=== PATIENT | female | born 1965 | race Two or more races ===

== ENCOUNTER 2021-01-06 07:57 | Outpatient (REF) | payer OTHER, SELFPAY ==
[2021-01-06 08:37] LABS: MANUAL DIFF FLAG NO
[2021-01-06 08:43] LABS: Basophils Percent Auto 0.5 % (0-2); Eosinophils Absolute Auto 0.3 X10*3/uL (0.0-0.4); Eosinophils Percent Auto 4.3 % (0-4); Imm Gran Abs Auto 0.01 X10*3/uL (0.00-0.03); Imm Gran Pct Auto 0.2 % (0.0-0.4); Lymphocytes Absolute Auto 1.7 X10*3/uL (1.2-4.9); Lymphocytes Percent Auto 28.8 % (20-40); Mean Corpuscular HGB Conc 33.3 g/dl (31.0-35.0); Mean Corpuscular Hemoglobin 31.4 pg (27.0-33.0); Mean Corpuscular Volume 94.2 fL (80-98); Mean Platelet Volume 11.3 fL (9.4-12.3); Monocytes Absolute Auto 0.5 X10*3/uL (0.1-1.2); Monocytes Percent Auto 7.7 % (2-11); Neutrophils Absolute Auto 3.4 X10*3/uL (2.0-8.3); Neutrophils Percent Auto 58.5 % (45-73); Platelet Count 263 X10*3/uL (160-400); Red Blood Count 4.14 X10*6/uL (4.20-5.50); Red Cell Distribution Width 12.8 % (11.0-16.0); White Blood Count 5.8 X10*3/uL (4.8-10.8)
[2021-01-06 09:00] LABS: Alanine Aminotransferase 23 U/L (0-31); Albumin Level 4.2 g/dL (3.5-5.0); Alkaline Phosphatase 95 U/L (39-117); Anion Gap 11 (12-20); Aspartate Amino Transferase 22 U/L (5-31); Bilirubin Total 0.4 mg/dL (0.0-1.0); Blood Urea Nitrogen 13 mg/dL (9-16); Calcium 9.6 mg/dL (8.4-10.2); Carbon Dioxide 28 mmol/L (22-29); Chloride 104 mmol/L (96-108); Cholesterol 177 mg/dL; Estimated Glomerular Filt Rate > 60; Glucose Fasting 126 mg/dL (60-99); HDL Cholesterol 53 mg/dL; LDL Cholesterol Calculated 111 mg/dl; Sodium 139 mmol/L (135-145); Total Protein 7.2 g/dL (6.5-8.0); Triglycerides 65 mg/dL
[2021-01-06 09:26] LABS: Thyroid Stimulating Hormone 1.28 uIU/mL (0.32-4.0)
== END 2021-01-06 07:58 | disposition home or self-care (01) ==
LOC: HO.LAB 07:57
PROVIDERS: PCP Internal Medicine; Visit Provider Internal Medicine
DX: Z00.00 Encounter for general adult medical examination without abnormal findings (principal); E03.9 Hypothyroidism, unspecified; E11.9 Type 2 diabetes mellitus without complications
CPT/HCPCS: 36415; 80053; 80061; 84443; 85025

== ENCOUNTER 2021-01-20 10:27 | Outpatient (REF) | payer OTHER, SELFPAY ==
--- NOTE | ~2021-01-20 | MM_ITS ---
EXAMINATION: MM SCREENING DIGITAL BREAST TOMOSYNTHESIS, BILATERAL CLINICAL INFORMATION: Screening. Asymptomatic. The lifetime risk of breast cancer based on the Tyrer-Cuzick Model is 7%. COMPARISON: Mammography: 04/23/2019, 04/05/2018, 03/10/2017 TECHNIQUE: Digital breast tomosynthesis is performed in both the craniocaudal and mediolateral oblique views along with computer-aided detection (CAD). Synthesized 2D images are generated from the tomosynthesis. Additional right MLO view is provided. FINDINGS: The breasts are almost entirely fatty (ACR BI-RADS breast composition Category a). There are no significant masses, abnormal calcifications, or other abnormalities. Background stromal markings are stable. The axilla and skin contours are unremarkable. No significant changes. MM/MM tomosynthesis screening BI IMPRESSION: No mammographic evidence of malignancy. ASSESSMENT: BI-RADS 1: Negative RECOMMENDATION: Routine annual mammography screening. This patient's information was entered into a reminder system with a target due date for their next mammogram.
== END 2021-01-20 10:28 | disposition home or self-care (01) ==
LOC: HO.MAMMO 10:27
PROVIDERS: Visit Provider Internal Medicine
DX: Z12.31 Encounter for screening mammogram for malignant neoplasm of breast (principal)
CPT/HCPCS: 77063; 77067

== ENCOUNTER → 2021-02-11 12:28 | Outpatient (BNVA) | payer OTHER, SELFPAY | PROVIDERS: PCP Internal Medicine; Visit Provider Dietitian, Registered | DX: E66.9 Obesity, unspecified (principal); R73.03 Prediabetes; J45.909 Unspecified asthma, uncomplicated; Z68.41 Body mass index [BMI] 40.0-44.9, adult | CPT/HCPCS: 97802 ==

== ENCOUNTER → 2021-03-25 10:49 | Outpatient (BNVA) | payer OTHER, SELFPAY | PROVIDERS: PCP Internal Medicine; Visit Provider Dietitian, Registered | DX: R73.03 Prediabetes (principal) | CPT/HCPCS: 97803 ==

== ENCOUNTER → 2021-04-26 10:00 | Outpatient (BNVA) | payer OTHER, SELFPAY | PROVIDERS: PCP Internal Medicine; Referring Provider Internal Medicine; Visit Provider Internal Medicine Cardiovascular Disease | DX: R00.2 Palpitations (principal); I10 Essential (primary) hypertension | CPT/HCPCS: 93005; 99212 ==

== ENCOUNTER → 2021-05-06 10:26 | Outpatient (BNVA) | payer OTHER, SELFPAY | PROVIDERS: PCP Internal Medicine; Visit Provider Dietitian, Registered | DX: R73.03 Prediabetes (principal) | CPT/HCPCS: 97803 ==

== ENCOUNTER → 2021-05-14 10:26 | Outpatient (REF) | payer OTHER, SELFPAY ==
--- NOTE | 2021-05-14 10:29 | HM_ITS ---
Total monitoring time 6 days and 3 hours. Underlying rhythm is sinus. Minimum 53/minute. Maximum 122/minute. Average 73/minute. No atrial fibrillation or flutter. No AV blocks or pauses. Very rare supraventricular ectopy with a burden of 0.01%. Longest episode was 5 beats. Very rare ventricular ectopy with a burden of less than 0.01%; one couplet. No patient events. MTDD
== END ==
LOC: HO.CARD 10:26
PROVIDERS: PCP Internal Medicine; Visit Provider Internal Medicine Cardiovascular Disease
DX: R00.2 Palpitations (principal)
CPT/HCPCS: 93242

== ENCOUNTER → 2021-06-02 10:41 | Outpatient (BNVA) | payer OTHER, SELFPAY | PROVIDERS: PCP Internal Medicine; Referring Provider Internal Medicine; Visit Provider Internal Medicine Cardiovascular Disease | DX: R00.2 Palpitations (principal); R06.00 Dyspnea, unspecified; I10 Essential (primary) hypertension | CPT/HCPCS: 99212 ==

== ENCOUNTER → 2021-06-10 13:04 | Outpatient (BNVA) | payer OTHER, SELFPAY | PROVIDERS: PCP Internal Medicine; Visit Provider Dietitian, Registered | DX: R73.03 Prediabetes (principal) | CPT/HCPCS: 97803 ==

== ENCOUNTER → 2021-06-29 10:17 | Outpatient (REF) | payer OTHER, SELFPAY ==
--- NOTE | 2021-06-29 10:21 | CA_ITS ---
Acquisition Time: 2021-06-29 10:49:46 Total Exercise Time: 00:03:47 Test Indications: Dyspnea Medications: ATORVASTATIN HCTZ NAPROXEN TIZANADINE TRAZADONE VENLAFAXINE Protocol: SAMANTHA Max HR: 130 BPM 79% of Pred: 163 BPM Max BP: 140/082 mmHG Max Work Load: 4.6 METS Exercise stress test with exercise 3 min 3 sec of Samantha protocol, then treadmill stopped due to runs of ventricular tachycardia, 6 beats followed by 4 beats and 3 beats, with report of palpitation, without chest discomfort, with mild sob, with normotensive response to exercise, with nondiagnostic EKG for ischemia due to suboptimal heart rate. No further ventricular ectopy in recovery. Test reviewed with Dr Ledesma. message sent to Dr Stark regarding the above events. Referred By: Quinton Stark Overread By: JENNIFER MANNING
== END ==
LOC: HO.CARD 10:17
PROVIDERS: Visit Provider Internal Medicine Cardiovascular Disease
DX: R06.00 Dyspnea, unspecified (principal)
CPT/HCPCS: 93017

== ENCOUNTER 2021-07-01 14:42 | Outpatient (REF) | payer OTHER, SELFPAY ==
[2021-07-01 16:13] LABS: MANUAL DIFF FLAG NO
[2021-07-01 16:23] LABS: Basophils Percent Auto 0.5 % (0-2); Eosinophils Absolute Auto 0.2 X10*3/uL (0.0-0.4); Eosinophils Percent Auto 2.9 % (0-4); Hematocrit 38.9 % (37.0-47.0); Hemoglobin 12.7 g/dl (12.0-16.0); Imm Gran Abs Auto 0.02 X10*3/uL (0.00-0.03); Imm Gran Pct Auto 0.3 % (0.0-0.4); Lymphocytes Absolute Auto 2.6 X10*3/uL (1.2-4.9); Lymphocytes Percent Auto 33.4 % (20-40); Mean Corpuscular HGB Conc 32.6 g/dl (31.0-35.0); Mean Corpuscular Volume 94.9 fL (80.0-98.0); Mean Platelet Volume 10.9 fL (9.4-12.3); Monocytes Absolute Auto 0.6 X10*3/uL (0.1-1.2); Monocytes Percent Auto 8.2 % (2-11); Neutrophils Absolute Auto 4.3 x10*3/uL (2.0-8.3); Neutrophils Percent Auto 54.7 % (45-73); Platelet Count 244 X10*3/uL (160-400); Red Cell Distribution Width 12.8 % (11.0-16.0); White Blood Count 7.8 X10*3/uL (4.8-10.8)
[2021-07-01 16:40] LABS: Prothrombin Time 11.8 SEC (9.9-13.0)
[2021-07-01 16:55] LABS: Anion Gap 16 (12-20); Blood Urea Nitrogen 17 mg/dL (9-16); Calcium 9.6 mg/dL (8.4-10.2); Carbon Dioxide 23 mmol/L (22-29); Chloride 103 mmol/L (96-108); Estimated Glomerular Filt Rate > 60; Glucose Random 84 mg/dL (60-115); Potassium 3.8 mmol/L (3.3-5.1); Sodium 138 mmol/L (135-145)
== END 2021-07-01 14:43 | disposition home or self-care (01) ==
LOC: HO.LAB 14:42
PROVIDERS: PCP Internal Medicine; Referring Provider Internal Medicine; Visit Provider Nurse Practitioner Family
DX: Z01.810 Encounter for preprocedural cardiovascular examination (principal); I47.2 Ventricular tachycardia; R06.00 Dyspnea, unspecified; R00.2 Palpitations; E66.9 Obesity, unspecified; I10 Essential (primary) hypertension; R73.03 Prediabetes; E78.5 Hyperlipidemia, unspecified
CPT/HCPCS: 36415; 80048; 85025; 85610; 99212

== ENCOUNTER → 2021-08-03 08:27 | Outpatient (REF) | payer OTHER, SELFPAY ==
[2021-08-03 08:43] LABS: MANUAL DIFF FLAG NO
[2021-08-03 09:00] LABS: Basophils Percent Auto 0.4 % (0-2); Eosinophils Absolute Auto 0.1 X10*3/uL (0.0-0.4); Eosinophils Percent Auto 1.5 % (0-4); Hematocrit 40.3 % (37.0-47.0); Hemoglobin 12.8 g/dl (12.0-16.0); Imm Gran Abs Auto 0.01 X10*3/uL (0.00-0.03); Imm Gran Pct Auto 0.2 % (0.0-0.4); Lymphocytes Absolute Auto 0.7 X10*3/uL (1.2-4.9); Mean Corpuscular HGB Conc 31.8 g/dl (31.0-35.0); Mean Corpuscular Hemoglobin 30.7 pg (27.0-33.0); Mean Corpuscular Volume 96.6 fL (80.0-98.0); Mean Platelet Volume 11.1 fL (9.4-12.3); Monocytes Absolute Auto 0.6 X10*3/uL (0.1-1.2); Monocytes Percent Auto 12.5 % (2-11); Neutrophils Absolute Auto 3.2 x10*3/uL (2.0-8.3); Neutrophils Percent Auto 69.4 % (45-73); Platelet Count 227 X10*3/uL (160-400); Red Blood Count 4.17 X10*6/uL (4.20-5.50); Red Cell Distribution Width 12.7 % (11.0-16.0); White Blood Count 4.6 X10*3/uL (4.8-10.8)
[2021-08-03 09:03] LABS: INTERNATIONAL NORM RATIO 1.1 (0.9-1.1); Prothrombin Time 12.1 SEC (9.9-13.0)
[2021-08-03 09:50] LABS: Anion Gap 13 (12-20); Blood Urea Nitrogen 10 mg/dL (9-16); Calcium 9.6 mg/dL (8.4-10.2); Carbon Dioxide 29 mmol/L (22-29); Chloride 103 mmol/L (96-108); Estimated Glomerular Filt Rate > 60; Glucose Random 101 mg/dL (60-115); Sodium 141 mmol/L (135-145)
== END ==
LOC: HO.CARD 08:27
PROVIDERS: Absent Provider Internal Medicine; PCP Internal Medicine; Visit Provider Nurse Practitioner Family
DX: R00.2 Palpitations (principal); R06.00 Dyspnea, unspecified; R00.0 Tachycardia, unspecified
CPT/HCPCS: 36415; 80048; 85025; 85610

== ENCOUNTER → 2021-10-15 13:09 | Outpatient (REF) | payer OTHER, SELFPAY ==
--- NOTE | 2021-10-15 13:12 | CA_ITS ---
Transthoracic Echocardiogram Patient (Last, First, Middle): Temitope Christensen E Gender: Female Date of : 1965 Age: 56 Procedure Date: 10/15/2021 Procedure Type: Transthoracic Echocardiogram Location: OP Height: 149.86 cm Weight: 80.29 kg BSA: 1.75 m2 Heart Rate: bpm BP: 120 / 78 mmHg Human Resources Supervisor: HOOD Referring MD: Pastora Amaya L D RN-Yvonne Symptoms: R06.00 - Dyspnea, unspecified Study Quality: Fair ECG Rhythm: Sinus Conclusions: - The left ventricular systolic function is normal. The calculated ejection fraction is 57% by biplane method. - No obvious valvular pathology seen on this study. Findings Left Ventricle Normal left ventricular cavity size. There is normal left ventricular wall thickness. The left ventricular systolic function is normal. The calculated ejection fraction is 57% by biplane method. There is no evidence of regional wall motion abnormalities. Diastolic function is normal for age. Right Ventricle Normal right ventricular cavity size and systolic function. Atria The left atrium is mildly dilated. The right atrium is normal in size. Aortic Valve There is a normal trileaflet aortic valve. There is no aortic valve stenosis. There is no aortic valve regurgitation. Mitral Valve The mitral valve appears normal. There is no mitral valve regurgitation. There is no mitral valve stenosis. Pulmonic Valve The pulmonic valve was not well visualized. Tricuspid Valve Normal tricuspid valve structure. There is trace tricuspid valve regurgitation. The pulmonary artery systolic pressure is normal. Great Vessels The aortic annulus, sinuses of valsalva, and asc aorta are normal in size. Venous The inferior vena cava is normal in size and collapses greater than 50% with inspiration. Pericardium/Pleural There is no evidence of pericardial effusion. Prior Study Comparison No significant change compared to prior study dated: 03/12/2019. Recommendations, Care & Conclusions No obvious valvular pathology seen on this study. Measurements 2D Linear Measurements IVSd: 0.77 0.6-0.9/0.6-1.0 cm LVIDd: 4.35 3.9-5.3/4.2-5.9 cm LVIDd Index: 2.49 2.4-3.2/2.2-3.1 cm/m2 LVIDs: 2.83 2.0-3.6 cm LVPWd: 0.79 0.7-1.1 cm LA Diam: 3.50 2.7-3.8/3.0-4.0 cm LAIDs Index: 2.00 1.5-2.3 cm/m2 LV Mass: 129.62 67-162/88-224 g LV Mass Index: 74.07 43-95/49-115 g/m2 LVOT Diam: 1.80 3.0+(-)1.3 cm 2D Systolic Function EF 4C: 56.10 >55% EF 2C: 61.40 >55% EF BiP: 57.20 >55% Mitral Valve MV Pk E: 0.97 MV PK A: 0.55 MV Decel Time: 239.00 E/A: 1.80 E'Lateral: 11.00 E'Medial: 8.05 E/E' Med: 12.10 E/E' Lat: 8.80 PHT: 70.00 MVA PHT: 3.14 Decel Sierra: 4.07 Aortic Valve AoV Pk Doc: 1.78 AoV Mn Doc: 1.12 AoV VTI: 0.42 AoV Pk Grad: 13.00 Aov Mn Grad: 6.00 RUBI Cont.VTI: 1.40 LVOT LVOT Pk Doc: 0.93 LVOT Mn Doc: 0.66 LVOT VTI: 0.23 LVOT Pk Grad: 3.00 LVOT Mn Grad: 2.00 LVOT Diam: 1.80 LVOT Area: 2.54 Diastolic Function MV Pk E: 0.97 MV Pk A: 0.55 E/A: 1.80 E'Medial: 8.05 E/E' Med: 12.10 E' Laterial: 11.00 E/E' Lat: 8.80 Right Ventricle TAPSE (mm): 24.00 TVS' Doc: 11.00 Tricuspid Valve TR Pk Doc: 1.56 TR Pk Grad: 10.00 RA Press: 3.00 RVSP: 13.00 Great Vessels Aorta Ao Annulus: 2.40 1.4-2.[address] Ridge: 2.50 1.7-3.4 cm Ao Asc: 2.50 2.1-3.4 cm Updated in Other Vendor System with Status of Final Chris Ledesma MD electronically signed on 10/16/2021 1:12:54 PM with status of Final
== END ==
LOC: HO.CARD 13:09
PROVIDERS: Visit Provider Nurse Practitioner Family
DX: R06.00 Dyspnea, unspecified (principal); I47.2 Ventricular tachycardia; R00.2 Palpitations
CPT/HCPCS: 93306

== ENCOUNTER 2021-10-20 09:53 | Outpatient (REF) | payer OTHER, SELFPAY ==
[2021-10-20 10:20] LABS: Hemoglobin 12.6 g/dl (12.0-16.0); Mean Corpuscular HGB Conc 32.3 g/dl (31.0-35.0); Mean Corpuscular Hemoglobin 31.3 pg (27.0-33.0); Mean Corpuscular Volume 96.8 fL (80.0-98.0); Mean Platelet Volume 10.9 fL (9.4-12.3); Platelet Count 245 X10*3/uL (160-400); Red Blood Count 4.03 X10*6/uL (4.20-5.50); Red Cell Distribution Width 12.9 % (11.0-16.0); White Blood Count 5.5 X10*3/uL (4.8-10.8)
[2021-10-20 10:57] LABS: Anion Gap 13 (12-20); Blood Urea Nitrogen 15 mg/dL (9-16); Calcium 9.9 mg/dL (8.4-10.2); Carbon Dioxide 27 mmol/L (22-29); Chloride 104 mmol/L (96-108); Estimated Glomerular Filt Rate > 60; Glucose Random 97 mg/dL (60-115); Potassium 4.1 mmol/L (3.3-5.1); Sodium 140 mmol/L (135-145)
== END 2021-10-20 09:54 | disposition home or self-care (01) ==
LOC: HO.LAB 09:53
PROVIDERS: PCP Internal Medicine; Visit Provider Internal Medicine Cardiovascular Disease
DX: Z01.810 Encounter for preprocedural cardiovascular examination (principal)
CPT/HCPCS: 36415; 80048; 85027

== ENCOUNTER 2021-11-01 09:53 | Outpatient (REF) | payer OTHER, SELFPAY ==
[2021-11-01 10:43] LABS: INTERNATIONAL NORM RATIO 1.1 (0.9-1.1); Prothrombin Time 12.2 SEC (9.9-13.0)
== END 2021-11-01 09:54 | disposition home or self-care (01) ==
LOC: HO.LAB 09:53
PROVIDERS: PCP Internal Medicine; Visit Provider Internal Medicine Cardiovascular Disease
DX: Z13.9 Encounter for screening, unspecified (principal)
CPT/HCPCS: 36415; 85610

== ENCOUNTER 2021-11-01 09:57 | Outpatient (REF) | payer OTHER, SELFPAY ==
[2021-11-01 11:22] LABS: COVID-19 Test Negative (Negative)
== END 2021-11-01 09:58 | disposition home or self-care (01) ==
LOC: HO.LAB 09:57
PROVIDERS: PCP Internal Medicine; Visit Provider Internal Medicine
DX: Z20.822 Contact with and (suspected) exposure to COVID-19 (principal)
CPT/HCPCS: 87635; C9803

== ENCOUNTER → 2021-11-25 13:23 | Outpatient (BNVA) | payer OTHER, SELFPAY | PROVIDERS: PCP Internal Medicine; Referring Provider Internal Medicine; Visit Provider Nurse Practitioner Family | DX: I47.2 Ventricular tachycardia (principal); R00.2 Palpitations; R06.00 Dyspnea, unspecified; Z98.890 Other specified postprocedural states | CPT/HCPCS: Q3014 ==

== ENCOUNTER → 2021-12-15 10:32 | Outpatient (REF) | payer OTHER, SELFPAY ==
--- NOTE | 2021-12-15 10:35 | HM_ITS ---
* Total monitoring time 3 days and 3 hours. * Underlying rhythm is sinus. Average rate 67/Min. Range 45 to 122/Min. * No atrial fibrillation or flutter or AV blocks or pauses. * Very rare supraventricular and ventricular ectopy with minimal burden. * No patient events. MTDD
== END ==
LOC: HO.CARD 10:32
PROVIDERS: PCP Internal Medicine; Visit Provider Nurse Practitioner Family
DX: I47.2 Ventricular tachycardia (principal); R00.2 Palpitations
CPT/HCPCS: 93242

== ENCOUNTER 2021-12-31 08:28 | Outpatient (REF) | payer OTHER, SELFPAY ==
[2021-12-31 09:32] LABS: Cholesterol 162 mg/dL; Glucose Fasting 96 mg/dL (60-99); HDL Cholesterol 46 mg/dL; LDL Cholesterol Calculated 107 mg/dl; Triglycerides 46 mg/dL
== END 2021-12-31 08:29 | disposition home or self-care (01) ==
LOC: HO.LAB 08:28
PROVIDERS: PCP Internal Medicine; Visit Provider Internal Medicine
DX: Z00.00 Encounter for general adult medical examination without abnormal findings (principal); R73.9 Hyperglycemia, unspecified
CPT/HCPCS: 36415; 80061; 82947

== ENCOUNTER 2022-02-09 10:23 | Outpatient (REF) | payer OTHER, SELFPAY ==
--- NOTE | ~2022-02-09 | MM_ITS ---
EXAMINATION: MM SCREENING DIGITAL BREAST TOMOSYNTHESIS, BILATERAL CLINICAL INFORMATION: Screening. Asymptomatic. The lifetime risk of breast cancer based on the Tyrer-Cuzick Model is 7%. COMPARISON: Mammography: 01/20/2021, 04/23/2019, 04/05/2018 TECHNIQUE: Digital breast tomosynthesis is performed in both the craniocaudal and mediolateral oblique views along with computer-aided detection (CAD). Synthesized 2D images are generated from the tomosynthesis. FINDINGS: The breasts are almost entirely fatty (ACR BI-RADS breast composition Category a). There are no significant masses, abnormal calcifications, or other abnormalities. Parenchymal stromal markings are similar to prior exams. No developing density. No architectural abnormality. Skin contours are smooth. No significant changes. MM/MM tomosynthesis screening BI IMPRESSION: No mammographic evidence of malignancy. ASSESSMENT: BI-RADS 1: Negative RECOMMENDATION: Routine annual mammography screening. This patient's information was entered into a reminder system with a target due date for their next mammogram.
== END 2022-02-09 10:24 | disposition home or self-care (01) ==
LOC: HO.MAMMO 10:23
PROVIDERS: Visit Provider Internal Medicine
DX: Z12.31 Encounter for screening mammogram for malignant neoplasm of breast (principal)
CPT/HCPCS: 77063; 77067

== ENCOUNTER → 2022-05-26 10:30 | Outpatient (BNVA) | payer OTHER, SELFPAY | PROVIDERS: PCP Internal Medicine; Referring Provider Internal Medicine; Visit Provider Internal Medicine Cardiovascular Disease | DX: I10 Essential (primary) hypertension (principal); R00.2 Palpitations | CPT/HCPCS: 93005; 99212 ==

== ENCOUNTER → 2022-07-19 11:05 | Outpatient (REF) | payer OTHER, SELFPAY ==
--- NOTE | 2022-07-19 11:08 | HM_ITS ---
* Total monitoring time about 5 days. * Underlying rhythm is sinus. Average ventricular rate 63/Min. Range 48- 85/Min. * Rare PVCs with minimal burden. * No pauses or AV blocks. * No patient diary submitted. MTDD
== END ==
LOC: HO.CARD 11:05
PROVIDERS: PCP Internal Medicine; Visit Provider Internal Medicine Cardiovascular Disease
DX: R00.2 Palpitations (principal)
CPT/HCPCS: 93242

== ENCOUNTER 2022-09-08 11:00 | Outpatient (RCR) | payer OTHER, SELFPAY ==
--- NOTE | 2022-08-23 13:35 | MHC.PT.EP ---
[facility] [place] Office [place] Office [place] Office [address] Rodríguez Tyler [address] [phone] F: [phone] F: [phone] F: [phone] F: [phone] Physical Therapy Plan of Care Date of Evaluation: Date of Surgery: N/A Diagnosis: Low back pain, unspecified Assessment: Pt is a pleasant 57yo F who presents to PT with low back pain, R side> L side. She presents to PT with current impairments in pain, decreased lumbar ROM, decreased muscle length, soft tissue restrictions, decreased core stabilization, and decreased hip/glute strength. She is TTP throughout R lumbar PS and QL. She is limited functionally by prolonged standing, walking, bending, and sleeping. She is an excellent candidate for skilled PT in order to address current impairments to facilitate return to PLOF. She is recommended to be seen 2x/week for 4 weeks and will be reassessed at that time. 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 Manual therapy to restore motion and function. Therapeutic exercise to improve strength and flexibility. Neuromuscular re-education for posture and balance. Therapeutic activities to return to functional activities of daily living. Electronically signed by: Zohra Mccarthy, PT, DPT Please sign and return to therapist. Thank you for your referral.
--- NOTE | 2022-10-07 12:38 | MHC.PT.DC ---
[facility] [place] Office [place] Office [place] Office [address] Rodríguez Tyler [address] [phone] F: [phone] F: [phone] F: [phone] F: [phone] Physical Therapy Discharge Report Diagnosis: Low back pain, unspecified Date of Surgery: N/A Date of Evaluation: 08/23/22 Date of Discharge: 10/07/22 Treatments to Date: 3 Cancellations to Date: 4 No Shows to Date: Discharge Status: Visit Non-compliance Discharge Summary: Pt was seen for PT from 08/23/22-09/08/22. Her last attended appointment was 09/08/22. She had 4 cancellations since SOC including her last 2 scheduled appointments. Pt is being D/C from skilled PT as she has not attended or called to reschedule in > 30 days. Pt current level of function unknown at this time. Electronically signed by: Zohra Mccarthy, PT, DPT Please sign and return to therapist. Thank you for your referral.
== END 2022-10-07 12:38 | disposition home or self-care (01) ==
LOC: HO.PT 11:00
PROVIDERS: PCP Internal Medicine; Visit Provider Internal Medicine
DX: M54.50 Low back pain, unspecified (principal)
CPT/HCPCS: 97110; 97162

== ENCOUNTER 2022-09-21 08:57 | Outpatient (REF) | payer OTHER, SELFPAY ==
[2022-09-21 09:17] LABS: MANUAL DIFF FLAG NO
[2022-09-21 09:59] LABS: Basophils Percent Auto 0.6 % (0-2); Eosinophils Absolute Auto 0.1 X10*3/uL (0.0-0.4); Eosinophils Percent Auto 2.2 % (0-4); Hematocrit 38.2 % (37.0-47.0); Hemoglobin 12.6 g/dl (12.0-16.0); Imm Gran Abs Auto 0.02 X10*3/uL (0.00-0.03); Imm Gran Pct Auto 0.3 % (0.0-0.4); Lymphocytes Absolute Auto 1.9 X10*3/uL (1.2-4.9); Lymphocytes Percent Auto 29.1 % (20-40); Mean Corpuscular Hemoglobin 31.3 pg (27.0-33.0); Mean Platelet Volume 11.4 fL (9.4-12.3); Monocytes Absolute Auto 0.5 X10*3/uL (0.1-1.2); Monocytes Percent Auto 7.1 % (2-11); Neutrophils Absolute Auto 3.9 x10*3/uL (2.0-8.3); Neutrophils Percent Auto 60.7 % (45-73); Platelet Count 244 X10*3/uL (160-400); Red Blood Count 4.02 X10*6/uL (4.20-5.50); Red Cell Distribution Width 12.4 % (11.0-16.0); White Blood Count 6.5 X10*3/uL (4.8-10.8)
[2022-09-21 10:41] LABS: Alanine Aminotransferase 27 U/L (0-31); Albumin Level 4.3 g/dL (3.5-5.0); Alkaline Phosphatase 78 U/L (39-117); Anion Gap 13 (12-20); Aspartate Amino Transferase 22 U/L (5-31); Bilirubin Total 0.6 mg/dL (0.0-1.0); Blood Urea Nitrogen 16 mg/dL (9-16); Calcium 9.5 mg/dL (8.4-10.2); Carbon Dioxide 25 mmol/L (22-29); Chloride 104 mmol/L (96-108); Cholesterol 182 mg/dL; Estimated Glomerular Filt Rate > 60; Glucose Fasting 100 mg/dL (60-99); HDL Cholesterol 53 mg/dL; LDL Cholesterol Calculated 116 mg/dl; Potassium 4.2 mmol/L (3.3-5.1); Sodium 138 mmol/L (135-145); Total Protein 7.1 g/dL (6.5-8.0); Triglycerides 66 mg/dL
[2022-09-21 10:59] LABS: Thyroid Stimulating Hormone 0.95 uIU/mL (0.32-4.0)
== END 2022-09-21 08:58 | disposition home or self-care (01) ==
LOC: HO.LAB 08:57
PROVIDERS: PCP Internal Medicine; Visit Provider Internal Medicine
DX: Z13.0 Encounter for screening for diseases of the blood and blood-forming organs and certain disorders involving the immune mechanism (principal); E03.9 Hypothyroidism, unspecified; E78.5 Hyperlipidemia, unspecified; I10 Essential (primary) hypertension
CPT/HCPCS: 36415; 80053; 80061; 84443; 85025

== ENCOUNTER → 2022-10-20 10:35 | Outpatient (BNVA) | payer OTHER, SELFPAY | PROVIDERS: PCP Internal Medicine; Referring Provider Internal Medicine; Visit Provider Internal Medicine Cardiovascular Disease | DX: I10 Essential (primary) hypertension (principal); R00.2 Palpitations; R06.00 Dyspnea, unspecified | CPT/HCPCS: 99212 ==

== ENCOUNTER 2022-11-09 14:13 | Outpatient (REF) | payer OTHER, SELFPAY ==
--- NOTE | ~2022-11-09 | XR_ITS ---
EXAMINATION: XR FOOT, RIGHT CLINICAL INFORMATION: Pain COMPARISON: Foot radiographs 03/15/2017 TECHNIQUE: AP, lateral, and oblique views of the right foot. FINDINGS: No acute fracture or dislocation. Mild degenerative changes of the foot with degenerative spurring of the dorsal midfoot, plantar calcaneal spurring and Achilles tendon enthesopathy. Soft tissues are unremarkable. No joint effusion. XR/XR foot RT 2V IMPRESSION: Mild degenerative changes of the foot.
== END 2022-11-09 14:14 | disposition home or self-care (01) ==
LOC: HO.XRAY 14:13
PROVIDERS: PCP Internal Medicine; Visit Provider Internal Medicine
DX: M79.671 Pain in right foot (principal)
CPT/HCPCS: 73620

== ENCOUNTER → 2022-12-23 10:51 | Outpatient (BNVA) | payer OTHER, SELFPAY | PROVIDERS: PCP Internal Medicine; Visit Provider Nurse Practitioner Family | DX: N39.41 Urge incontinence (principal) | CPT/HCPCS: 51798; 99202 ==

== ENCOUNTER 2023-01-19 09:49 | Outpatient (REF) | payer OTHER, SELFPAY ==
--- NOTE | ~2023-01-19 | US_ITS ---
EXAMINATION: US RETROPERITONEAL COMPLETE (RENAL) CLINICAL INFORMATION: Urgent continence. COMPARISON: Ultrasound abdomen complete 11/19/2018. TECHNIQUE: Real-time imaging of the kidneys and bladder. FINDINGS: RIGHT KIDNEY: 12.0 x 4.1 x 4.8 cm (SAG x AP x TRV). The kidney is normal in size, contour, and echogenicity. Renal cortical thickness is normal. No calculi or focal parenchymal lesions. No hydronephrosis. LEFT KIDNEY: 11.7 x 5.3 x 4.7 cm (SAG x AP x TRV). The kidney is normal in size, contour, and echogenicity. Renal cortical thickness is normal. No calculi or focal parenchymal lesions. No hydronephrosis. BLADDER: Well distended and normal. Bilateral ureteral jets are demonstrated. Prevoid bladder volume is 328 mL. Postvoid bladder volume is 44.2 mL. US/US retroperitoneal comp IMPRESSION: Normal renal ultrasound. 44 mL post void bladder residual.
== END 2023-01-19 09:50 | disposition home or self-care (01) ==
LOC: HO.US 09:49
PROVIDERS: PCP Internal Medicine; Visit Provider Nurse Practitioner Family
DX: N39.41 Urge incontinence (principal)
CPT/HCPCS: 76770

== ENCOUNTER 2023-01-20 07:51 | Outpatient (REF) | payer OTHER, SELFPAY | END 2023-01-20 07:52 | disposition home or self-care (01) | LOC: HO.HOSX 07:51 | PROVIDERS: Visit Provider Orthopaedic Surgery | DX: M17.11 Unilateral primary osteoarthritis, right knee (principal) | CPT/HCPCS: 20610; 73560; 73565; 99202; J1100 ==

== ENCOUNTER 2023-02-06 11:01 | Outpatient (AMB) | payer OTHER, SELFPAY ==
--- NOTE | 2023-02-06 11:07 | MHC.OFFVIS ---
Intake Intake Visit Reasons: 6w/US/PVR(set) Intake Note: Patient is present for follow up incontinence/ultrasound/pvr (imaging 01/19/23) Urology Medications: myrbetriq Antibiotic Allergy:None Blood Thinner: None PVR: 45ml's Diamond Die Driller Required: Yes Diamond Die Driller Language: Co Founder And President Name: ENRIQUE Accompanied by: Self / Same As Patient Allergies No Known Allergies [No Known Allergies*] Allergy (Verified 02/06/23 21:21) Medication List - Last Reconciled 02/06/23 by GÉNESIS Newsome albuterol sulfate 90 mcg/actuation (ProAir HFA) 2 puffs inhalation Q4H PRN atorvastatin 10 mg PO DAILY blood pressure monitor As directed duloxetine 30 mg PO DAILY hydrochlorothiazide 12.5 mg PO DAILY metoprolol succinate ER 25 mg PO BID mirabegron ER (Myrbetriq) 25 mg PO DAILY 90 days naproxen 500 mg PO BID naproxen (Naprosyn) 500 mg PO BID PRN tizanidine 2 mg PO Q8H PRN trazodone 100 mg PO BEDTIME venlafaxine ER 150 mg PO DAILY HPI HPI Comments History of Present Illness Details Temitope is a pleasant 57 year old Czech speaking female patient of Dr. Irizarry. She has a past medical history of asthma, hyperlipidemia, hypertension, and obesity. She presents to the office today for a follow up. Of note, patient was seen approximately 6 weeks ago as a new patient for urge/frequency at which time a retroperitoneal ultrasound was ordered and the patient was started on Myrbetriq 25mg daily. These results were reviewed with the patient today. Bilateral kidneys with no calculi, lesions, and or hydronephrosis noted. The bladder is distended and normal. Bilateral ureteral jets are demonstrated. Prevoid bladder volume is 328 mL. Postvoid bladder volume is 44.2 mL. When asked patient reports Myrbetriq has been somewhat helpful in improving urinary urge/frequency however does continue with intermittent episodes at times. In the past she has trailed oxybutynin however experienced dry mouth and constipation. She also has had a cystoscopy hydrodistention in the past for interstitial cystitis with improvement in cystitis symptoms she had been experiencing at that time. When asked she denies nocturia, hematuria, dysuria, foul smelling urine, changes to urinary stream, flank pain, fever, and or chills. She does report having urinary frequency with episodes of incontinence if not near a bathroom. In office urinalysis results reviewed with the patient today. PVR 45mls. PFSH Medical History Asthma Burning with urination Hyperlipidemia Hypertension Obesity Right flank pain Surgical History History of hysterectomy History of tubal ligation History of vein stripping Family History Father Alcoholism Substance use disorder Mother Diabetes Paternal Grandfather CVD (cardiovascular disease) Social History Housing: Apartment Alcohol intake: never Patient Tobacco Use Status: Never used Tobacco e-Cigarette/Vaping Use: Never Used Second Hand Smoke Exposure: No service: No Current occupational status: disabled Cognitive needs: No Hearing needs: No Vision needs: No Review of Systems Const Reports no additional complaints Eyes Reports no additional complaints ENT Reports no additional complaints Card Reports as per HPI Resp Reports no additional complaints GI Reports no additional complaints Reports as per HPI Musc Reports no additional complaints Neuro Reports no additional complaints Psych Reports no additional complaints Endo Reports no additional complaints Jose Alberto/Lymph Reports no additional complaints Aller/Immun Reports no additional complaints Physical Exam Const General: cooperative, healthy appearing, comfortable, no acute distress, well developed, alert and awake Nutritional Appearance: overweight Orientation/consciousness: patient oriented x3 Limitations: no limitations HEENT Head: Yes normal to inspection, Yes normocephalic and Yes atraumatic Ears: hearing grossly normal bilaterally Eyes General: appearance normal, both eyes and all related structures Neck Neck: Yes normal visual inspection and Yes trachea midline Chest Chest palpation & inspection: normal inspection of the chest Resp Effort & Inspection: normal respiratory effort and able to speak in complete sentences Cardio Rate: regular rate GI Inspection: Yes normal to inspection General: Yes no CVA tenderness Back/Spine/Pelvis Back: no CVA tenderness Skin General skin exam: no rashes or lesions noted Neuro General: patient oriented x3 Extrem General: Yes normal to inspection Psych Appearance: grossly normal and well kempt Mental Status: mental status grossly normal Speech and movement: Normal speech and movement present and Clear speech present Affect: normal affect Attitude: cooperative Thought process: Normal thought process present Thought content: Normal thought content present Insight: Fair insight present (Psych) Judgement: Fair judgement present (Psych) Office Procedures Post Void Residual Post Residual Void Post Void Residual (PVR): 45 [id number] Void Residual by ultrasound Results AMB Urinalysis, Automated UA Leukoctes 0 Lea/uL Last Edit by [employer] on 02/06/23 11:32 UA Nitrite Negative Last Edit by [employer] on 02/06/23 11:32 UA Urobilinogen 0.2 mg/dL Last Edit by [employer] on 02/06/23 11:32 UA Protein 0 mg/dL Last Edit by [employer] on 02/06/23 11:32 UA pH 6.0 Last Edit by [employer] on 02/06/23 11:32 UA Blood 25 Sy/uL Last Edit by [employer] on 02/06/23 11:32 UA Specific [place] 1.015 Last Edit by [employer] on 02/06/23 11:32 UA Ketone Negative Last Edit by [employer] on 02/06/23 11:32 UA Bilirubin 0 mg/dL Last Edit by [employer] on 02/06/23 11:32 UA Glucose 0 mg/dL Last Edit by [employer] on 02/06/23 11:32 Results Reviewed Results Reviewed: Laboratory Last Values Urine pH (Auto) 6.0 02/06/23 11:30 Specific [place] (Auto) 1.015 02/06/23 11:30 Urine Protein (Auto) 0 mg/dL 02/06/23 11:30 Glucose (UA)(Auto) 0 mg/dL 02/06/23 11:30 Urine Ketones (Auto) Negative 02/06/23 11:30 Urine Blood (Auto) 25 Sy/uL 02/06/23 11:30 Urine Nitrite (Auto) Negative 02/06/23 11:30 Urine Bilirubin (Auto) 0 mg/dL 02/06/23 11:30 Urine Urobilinogen (Auto) 0.2 mg/dL 02/06/23 11:30 Leukocyte Esterase (Auto) 0 Lea/uL 02/06/23 11:30 Date of Service: 01/19/23 EXAMINATION: US RETROPERITONEAL COMPLETE (RENAL) FINDINGS: RIGHT KIDNEY: 12.0 x 4.1 x 4.8 cm (SAG x AP x TRV). The kidney is normal in size, contour, and echogenicity. Renal cortical thickness is normal. No calculi or focal parenchymal lesions. No hydronephrosis. LEFT KIDNEY: 11.7 x 5.3 x 4.7 cm (SAG x AP x TRV). The kidney is normal in size, contour, and echogenicity. Renal cortical thickness is normal. No calculi or focal parenchymal lesions. No hydronephrosis. BLADDER: Well distended and normal. Bilateral ureteral jets are demonstrated. Prevoid bladder volume is 328 mL. Postvoid bladder volume is 44.2 mL. IMPRESSION: Normal renal ultrasound. 44 mL post void bladder residual. Assessment & Plan Assessment & Plan (1) Urinary incontinence, urge: Code(s): N39.41 - Urge incontinence Plan In office urinalysis results reviewed with the patient today; as noted above. PVR 45 mL. Recent retroperitoneal ultrasound results reviewed with the patient today; as noted above. Will increase Myrbetriq to 50 mg daily. Discussed possible need for dual therapy with Myrbetriq and VESIcare or trial of Gemtesa Discussed near future in office cystoscopy if symptoms persist and/or worsen Discussed at length weight loss to assist with improvement in urinary symptoms as well as for overall health and well-being. Patient denies any UTI like symptoms. Follow-up in 6 weeks with PVR; or sooner with any issues, concerns, and or questions. Orders: Orders AMB Urinalysis Automated Today Z13.9 - Encounter for screening, unspecified AMB Post Void Residual by ultrasound Today N39.41 - Urge incontinence Medications: Changed From mirabegron ER (Myrbetriq) 25 mg PO DAILY 90 days 90 tabs 1RF N32.81 - Overactive bladder, R35.1 - Nocturia To mirabegron ER (Myrbetriq) 50 mg (2 x 25 mg) PO DAILY 90 days 180 tabs 1RF N32.81 - Overactive bladder, R35.1 - Nocturia Patient Instructions: The patient had an opportunity to ask questions regarding the treatment plan. All questions were answered. Physical exam, labs, and imaging were discussed and reviewed in detail. As well as risks, benefits, and discussion of treatment choices. No major barriers to understanding were identified. The patient expressed understanding and agreement with the above treatment plan. The patient was made aware they should contact our office by phone for worsening of their current condition, the appearance of new symptoms, or with any questions or concerns. Compliance is encouraged with any medications and follow up testing that is ordered. It is a privilege to be allowed the opportunity to participate in? your urological care.? Again, if you have any questions or concerns If you have any questions or concerns please do not hesitate to contact me. The office is [phone]. This note is constructed using voice recognition software. While every effort has been made to ensure accuracy prop cutter errors may have been included. Yours sincerely, GÉNESIS Newsome Coding Level of Care Code Est Pt Level 3 (43414) Diagnoses Urinary incontinence, urge N39.41 CPT Codes Post Residual Void - PVR CPT Code: 96062-Cclz Void Residual by ultrasound ([id number])
== END 2023-02-06 12:03 | disposition home or self-care (01) ==
PROVIDERS: Visit Provider Nurse Practitioner Family
DX: N39.41 Urge incontinence (principal)
CPT/HCPCS: 99213

== ENCOUNTER → 2023-02-06 11:01 | Outpatient (BNVA) | payer OTHER, SELFPAY | PROVIDERS: Visit Provider Nurse Practitioner Family | DX: N39.41 Urge incontinence (principal) | CPT/HCPCS: 51798; 99212 ==

== ENCOUNTER 2023-03-21 10:26 | Outpatient (AMB) | payer OTHER, SELFPAY ==
--- NOTE | 2023-03-21 10:31 | A.OFFVIS_ITS ---
Intake Intake Visit Reasons: incontinence- 6w follow up/PVR Intake Note: Patient presents for follow up incontinence Urology Medications: myrbetriq Blood Thinner: None PVR: 43ml's Health Occupations Teacher Required: Yes Health Occupations Teacher Name: MONICA Accompanied by: Self / Same As Patient Allergies No Known Allergies [No Known Allergies*] Allergy (Verified 03/21/23 11:12) Medication List - Last Reconciled 03/21/23 by GÉNESIS Newsome albuterol sulfate 90 mcg/actuation (ProAir HFA) 2 puffs inhalation Q4H PRN atorvastatin 10 mg PO DAILY blood pressure monitor As directed duloxetine 30 mg PO DAILY hydrochlorothiazide 12.5 mg PO DAILY metoprolol succinate ER 25 mg PO BID mirabegron ER (Myrbetriq) 50 mg PO DAILY 90 days naproxen 500 mg PO BID naproxen (Naprosyn) 500 mg PO BID PRN tizanidine 2 mg PO Q8H PRN trazodone 100 mg PO BEDTIME venlafaxine ER 150 mg PO DAILY HPI HPI Comments History of Present Illness Details Temitope is a pleasant 58 year old Hungarian speaking female patient of Dr. Irizarry. She has a past medical history of asthma, hyperlipidemia, hypertension, and obesity. She presents to the office today for a follow up. Of note, patient was seen approximately 6 weeks ago at which time Myrbetriq was increased to 50mg daily as patient continue to report urinary urgency and frequency with intermi ttent episodes of incontinence if not near a bathroom on 25 mg of Myrbetriq daily. In discussion with the patient today she reports significant improvement in urinary symptoms on 50 mg of Myrbetriq daily. Previous workup included retroperitoneal ultrasound showing bilateral kidneys with no calculi, lesions, and or hydronephrosis noted. The bladder is distended and normal. Bilateral ureteral jets are demonstrated. Prevoid bladder volume is 328 mL. Postvoid bladder volume is 44.2 mL. In the past she has trailed oxybutynin however experienced dry mouth and constipation. She also has had a cystoscopy hydrodistention in the past for interstitial cystitis with improvement in cystitis symptoms she had been experiencing at that time. When asked she denies nocturia, hematuria, dysuria, foul smelling urine, changes to urinary stream, flank pain, fever, and or chills. In office urinalysis results reviewed with the patient today. PVR 43mls. PFSH Medical History Asthma Burning with urination Hyperlipidemia Hypertension Obesity Right flank pain Surgical History History of hysterectomy History of tubal ligation History of vein stripping Family History Father Alcoholism Substance use disorder Mother Diabetes Paternal Grandfather CVD (cardiovascular disease) Social History Housing: Apartment Alcohol intake: never Patient Tobacco Use Status: Never used Tobacco e-Cigarette/Vaping Use: Never Used Second Hand Smoke Exposure: No service: No Current occupational status: disabled Cognitive needs: No Hearing needs: No Vision needs: No Review of Systems Const Reports no additional complaints Eyes Reports no additional complaints ENT Reports no additional complaints Card Reports as per HPI Resp Reports no additional complaints GI Reports no additional complaints Reports as per HPI Musc Reports no additional complaints Neuro Reports no additional complaints Psych Reports no additional complaints Endo Reports no additional complaints Jose Alberto/Lymph Reports no additional complaints Aller/Immun Reports no additional complaints Physical Exam Const General: cooperative, healthy appearing, comfortable, no acute distress, well developed, alert and awake Nutritional Appearance: overweight Orientation/consciousness: patient oriented x3 Limitations: no limitations HEENT Head: Yes normal to inspection, Yes normocephalic and Yes atraumatic Ears: hearing grossly normal bilaterally Eyes General: appearance normal, both eyes and all related structures Neck Neck: Yes normal visual inspection and Yes trachea midline Chest Chest palpation & inspection: normal inspection of the chest Resp Effort & Inspection: normal respiratory effort and able to speak in complete sentences Cardio Rate: regular rate GI Inspection: Yes normal to inspection General: Yes no CVA tenderness Back/Spine/Pelvis Back: no CVA tenderness Skin General skin exam: no rashes or lesions noted Neuro General: patient oriented x3 Extrem General: Yes normal to inspection Psych Appearance: grossly normal and well kempt Mental Status: mental status grossly normal Speech and movement: Normal speech and movement present and Clear speech present Affect: normal affect Attitude: cooperative Thought process: Normal thought process present Thought content: Normal thought content present Insight: Fair insight present (Psych) Judgement: Fair judgement present (Psych) Office Procedures Post Void Residual Post Residual Void Post Void Residual (PVR): 43 [id number]-[id number] Void Residual by ultrasound Results AMB Urinalysis, Automated UA Leukoctes 0 Lea/uL Last Edit by Angie Armijo on 03/21/23 10:49 UA Nitrite Negative Last Edit by Tapomatten Guguchuromain on 03/21/23 10:49 UA Urobilinogen 0.2 mg/dL Last Edit by [employer] on 03/21/23 10:49 UA Protein 0 mg/dL Last Edit by Manipal Acunova on 03/21/23 10:49 UA pH 6.5 Last Edit by Manipal Acunova on 03/21/23 10:49 UA Blood 10 Sy/uL Last Edit by Manipal Acunova on 03/21/23 10:49 UA Specific [place] 1.015 Last Edit by Manipal Acunova on 03/21/23 10:49 UA Ketone Negative Last Edit by Manipal Acunova on 03/21/23 10:49 UA Bilirubin 0 mg/dL Last Edit by Manipal Acunova on 03/21/23 10:49 UA Glucose 0 mg/dL Last Edit by Manipal Acunova on 03/21/23 10:49 Results Reviewed Results Reviewed: Laboratory Last Values Urine pH (Auto) 6.5 03/21/23 10:32 Specific [place] (Auto) 1.015 03/21/23 10:32 Urine Protein (Auto) 0 mg/dL 03/21/23 10:32 Glucose (UA)(Auto) 0 mg/dL 03/21/23 10:32 Urine Ketones (Auto) Negative 03/21/23 10:32 Urine Blood (Auto) 10 Sy/uL 03/21/23 10:32 Urine Nitrite (Auto) Negative 03/21/23 10:32 Urine Bilirubin (Auto) 0 mg/dL 03/21/23 10:32 Urine Urobilinogen (Auto) 0.2 mg/dL 03/21/23 10:32 Leukocyte Esterase (Auto) 0 Lea/uL 03/21/23 10:32 Assessment & Plan Assessment & Plan (1) Urinary incontinence, urge: Code(s): N39.41 - Urge incontinence Plan In office urinalysis results reviewed with the patient today; as noted above. PVR 43 mL. Continue Myrbetriq 50 mg as discussed and prescribed; refill provided Discussed and educated on the importance of drinking plenty of water daily. Discussed importance of continuing to work on healthy eating habits, exercise, and weight loss loss for improvement in urinary symptoms as well as for overall health and well-being. Patient otherwise denies any bothersome urinary issues or concerns at this time. Follow-up in 1 year with PVR; or sooner with any issues, concerns, and or questions. Orders: Orders AMB Urinalysis Automated Today Z13.9 - Encounter for screening, unspecified AMB Post Void Residual by ultrasound Today N39.41 - Urge incontinence Medications: Refilled mirabegron ER (Myrbetriq) 50 mg PO DAILY 90 days 90 tabs 3RF Patient Instructions: The patient had an opportunity to ask questions regarding the treatment plan. All questions were answered. Physical exam, labs, and imaging were discussed and reviewed in detail. As well as risks, benefits, and discussion of treatment choices. No major barriers to understanding were identified. The patient expressed understanding and agreement with the above treatment plan. The patient was made aware they should contact our office by phone for worsening of their current condition, the appearance of new symptoms, or with any questions or concerns. Compliance is encouraged with any medications and follow up testing that is ordered. It is a privilege to be allowed the opportunity to participate in? your urological care.? Again, if you have any questions or concerns If you have any questions or concerns please do not hesitate to contact me. The office is [phone]. This note is constructed using voice recognition software. While every effort has been made to ensure accuracy destination imagination coordinator errors may have been included. Yours sincerely, GÉNESIS Newsome Coding Level of Care Code Est Pt Level 3 (19790) Diagnoses Urinary incontinence, urge N39.41 CPT Codes Post Residual Void - PVR CPT Code: 84889-Bbxi Void Residual by ultrasound ([id number])
== END 2023-03-21 11:07 | disposition home or self-care (01) ==
PROVIDERS: PCP Internal Medicine; Visit Provider Nurse Practitioner Family
DX: Z13.9 Encounter for screening, unspecified (principal); N39.41 Urge incontinence
CPT/HCPCS: 99213

== ENCOUNTER → 2023-03-21 10:26 | Outpatient (BNVA) | payer OTHER, SELFPAY | PROVIDERS: PCP Internal Medicine; Visit Provider Nurse Practitioner Family | DX: N39.41 Urge incontinence (principal) | CPT/HCPCS: 51798; 81003; 99212 ==

== ENCOUNTER 2023-04-05 11:29 | Outpatient (REF) | payer OTHER, SELFPAY | END 2023-04-05 11:30 | disposition home or self-care (01) | LOC: HO.MAMMO 11:29 | PROVIDERS: PCP Internal Medicine; Visit Provider Internal Medicine | DX: Z12.31 Encounter for screening mammogram for malignant neoplasm of breast (principal) | CPT/HCPCS: 77063; 77067 ==

== ENCOUNTER → 2023-04-05 11:30 | Outpatient (BNV) | payer OTHER, SELFPAY | PROVIDERS: PCP Internal Medicine; Visit Provider Radiology Diagnostic Radiology | DX: Z12.31 Encounter for screening mammogram for malignant neoplasm of breast (principal) | CPT/HCPCS: 77063; 77067 ==

== ENCOUNTER 2023-04-27 11:00 | Outpatient (RCR) | payer OTHER, SELFPAY ==
[2023-03-22 11:04] VITALS: BP 126/61; PULSE 61
--- NOTE | 2023-03-22 11:52 | MHC.PT.EP ---
[facility] [place] Office [place] Office [place] Office [address] Rodríguez Tyler [address] [phone] F: [phone] F: [phone] F: [phone] F: [phone] Physical Therapy Plan of Care Date of Evaluation: Date of Surgery: NA Diagnosis: Unilateral primary OA, R knee Assessment: Temitope is a 58 year old female who is referred to PT for unilateral primary OA, R knee . She reports of having pain in her R knee for several years however her pain got worse about 1 month back. She had a cortisone shot and was better with it but still has pain. On PT examination she presents with TTP over medial and lateral joint line, distal end of quad, 6/10 pain with standing, walking, stairs and sleeping, decreased R knee ROM, decreased R LE strength, altered posture and gait. She lives alone and is independent with all ADLS. She would benefit from skilled PT to address the aforementioned impairments and improve tolerance to functional activities. Frequency and Duration: The patient will be seen 2/week for 5 weeks Short Term Goals: 1. Pt will have 50% decrease in pain which will enable her to sleep through the night in 2 weeks. 2. Pt will be able to move her knee through full plane of motion which will enable her to negotiate stairs with a pain no more than 2/10 in 3 weeks. Mcc Goals: 1. Pt will demonstrate an increase in muscle strength by 1 grade which will enable her to tolerate standing and walking for 30 minutes without pain in 5 weeks. 2. Pt will be independent with [facility] for symptom management and maintenance following d/c in 5 weeks. Treatment Plan: Modalities to reduce pain, spasms and effusion. Manual therapy to restore motion and function. Therapeutic exercise to improve strength and flexibility. Neuromuscular re-education for posture and balance. Therapeutic activities to return to functional activities of daily living. Electronically signed by: Brandie Dill PT DPT Please sign and return to therapist. Thank you for your referral.
--- NOTE | 2023-04-28 15:16 | MHC.PT.DC ---
[facility] [place] Office [place] Office [place] Office [address] Rodríguez Tyler [address] [phone] F: [phone] F: [phone] F: [phone] F: [phone] Physical Therapy Discharge Report Diagnosis: Unilateral primary OA, R knee Date of Surgery: NA Date of Evaluation: 03/22/23 Date of Discharge: 04/28/23 Treatments to Date: 9 Cancellations to Date: 3 No Shows to Date: Discharge Status: Achieved Goals Improved Function Independent with HEP Discharge Summary: Temitope completed 9 PT visits. She has made significant improvements and is independent with all HEP. She has met all goals set for her. She is therefore being d/c from PT. All HEPs were reviewed with her today. Electronically signed by: Brandie Dill, PT DPT Please sign and return to therapist. Thank you for your referral.
== END 2023-04-28 15:17 | disposition home or self-care (01) ==
LOC: HO.PT 11:00
PROVIDERS: PCP Internal Medicine; Visit Provider Internal Medicine
DX: M17.11 Unilateral primary osteoarthritis, right knee (principal)
CPT/HCPCS: 97014; 97110; 97161; 97530

== ENCOUNTER 2023-04-27 12:52 | Outpatient (AMB) | payer OTHER, SELFPAY ==
--- NOTE | 2023-04-27 13:43 | MHC.OFFVIS ---
Intake Vital Signs 04/27/23 13:44 Height 4 ft 11 in Weight 196 lb 3.382 oz BMI 39.6 BP 120/72 Blood Pressure Location Lt brachial Position Sitting Intake Visit Reasons: 6 month f/u Intake Note: 6 month f/u Claims Consultant Required: Yes Claims Consultant Language: General Ledger Bookkeeper Name: mayda mendosa [id number] Allergies No Known Allergies [No Known Allergies*] Allergy (Verified 04/27/23 13:49) Medication List - Last Reconciled 04/27/23 by Pastora Amaya NP-C albuterol sulfate 90 mcg/actuation (ProAir HFA) 2 puffs inhalation Q4H PRN atorvastatin 10 mg PO DAILY blood pressure monitor As directed duloxetine 30 mg PO DAILY hydrochlorothiazide 12.5 mg PO DAILY metoprolol succinate ER 25 mg PO BID 90 days mirabegron ER (Myrbetriq) 50 mg PO DAILY 90 days naproxen (Naprosyn) 500 mg PO BID PRN tizanidine 2 mg PO Q8H PRN trazodone 100 mg PO BEDTIME HPI 6 month f/u HPI Details Temitope is a 58-year-old female past medical history of hypertension, hyperlipidemia, pericarditis, heart palpitations who presents for follow-up. Today she reports that she continues to feel heart palpitations at times that cause her some concern. She feels a quick sensation in her chest lasting only a second and resolving. She has not had any sustained rapid or irregular heartbeats. No presyncope, syncope, falls. No chest discomfort at rest or with activity. No shortness of breath, PND, orthopnea or edema. She has been taking her meds as directed. She tries to remain physically active. 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 [facility] Medical History Right flank pain Burning with urination Obesity Hypertension Asthma Hyperlipidemia Surgical History History of vein stripping History of hysterectomy History of tubal ligation Family History Father Alcoholism Substance use disorder Mother Diabetes Paternal Grandfather CVD (cardiovascular disease) Social History Housing: Apartment Alcohol intake: never Patient Tobacco Use Status: Never used Tobacco e-Cigarette/Vaping Use: Never Used Second Hand Smoke Exposure: No service: No Current occupational status: disabled Cognitive needs: No Hearing needs: No Vision needs: No Review of Systems Const All systems reviewed & are unremarkable except as noted in HPI and below Card Details: palpitations Denies chest pain, Denies chest pain at rest, Denies chest pain with activity, Denies rapid heart rate, Denies pedal edema, Denies edema, Denies leg edema, Denies lightheadedness, Denies palpitations, Denies dyspnea, Denies dyspnea on exertion and Denies orthopnea Resp Denies cough, Denies dyspnea and Denies dyspnea on exertion GI Denies hematochezia and Denies change in stool character Musc Denies abnormal gait, Denies limited range of motion, Denies muscle cramps, Denies muscle weakness, Denies numbness, Denies radiating pain into limb, Denies stiffness and Denies tingling Neuro Denies abnormal gait, Denies numbness and Denies tingling Endo Denies palpitations Physical Exam Vital Signs: Last Vital Signs BP 120/72 04/27/23 13:44 BMI result Body Mass Index 39.6 Const General: cooperative, healthy appearing, comfortable and no acute distress Orientation/consciousness: patient oriented x3 Neck Neck: Yes normal visual inspection Resp Effort & Inspection: normal respiratory effort Auscultation: clear to auscultation bilaterally, no crackles, no rales, no rhonchi and no wheezes Cardio Jugular venous distension: no JVD Rate: regular rate Rhythm: regular rhythm Heart sounds: S1 normal heart sound present, S2 normal heart sound present, no gallops, no murmurs and no rubs Neuro General: patient oriented x3 Extrem General: Yes normal to inspection, No no pedal edema and No calf tenderness Psych Appearance: grossly normal Mental Status: mental status grossly normal Speech and movement: Normal speech and movement present Office Procedures EKG Details: Today, read by me, sinus bradycardia, heart rate 55, QTC 403 milliseconds, [place] [id number], Complete Assessment & Plan Assessment & Plan (1) Palpitations: Code(s): R00.2 - Palpitations Plan: Report of heart palpitations, brief, lasting a second and resolving however causing concern. Holter monitor was done on 07/19/2022 for 5 days showing sinus rhythm with average heart rate 63, rare PVCs, no pauses or AV blocks. Echocardiogram done on 10/15/2022 showed EF 57%, no valve abnormalities no regional wall motion abnormality. She was put on metoprolol to help relieve her palpitations. She continues on 25 mg b.i.d.. She continues to report some palpitations but no sustained rapid or irregular beats. Offered reassurance. Continue on current metoprolol. Discussed reduction/cessation of caffeinated beverages, stress reduction activities, continue activity as tolerated. She prefers a cardiology follow-up in 6 months, sooner if needed (2) Sinus bradycardia: Code(s): R00.1 - Bradycardia, unspecified Plan: EKG done today showing sinus bradycardia. She is concerned that her heart rate is too low. Informed her that she is on metoprolol which is likely bringing her heart rate down. She has no weakness, presyncope, syncope, falls. She will let us know if she has any changes to how she is feeling. (3) S/P cardiac catheterization: Comment: 11/03/2021 showing normal coronary arteries Code(s): Z98.890 - Other specified postprocedural states (4) Hypertension: Code(s): I10 - Essential (primary) hypertension Qualifiers: Hypertension type: primary hypertension Qualified Code(s): I10 - Essential (primary) hypertension Plan: Well controlled at this time. No medication changes made. Continue metoprolol, hydrochlorothiazide. Coding Level of Care Code Est Pt Level 3 (32318) Diagnoses Palpitations R00.2 Sinus bradycardia R00.1 S/P cardiac catheterization Z98.890 Primary hypertension I10 Hypertension type: primary hypertension CPT Codes EKG - CPT: 98521-[id number], Complete ([id number]) Time Spent (min) 22
[2023-04-27 13:44] VITALS: BP 120/72; BMI 39.6
== END 2023-04-27 14:10 | disposition home or self-care (01) ==
PROVIDERS: PCP Internal Medicine; Visit Provider Nurse Practitioner Family
DX: R00.1 Bradycardia, unspecified (principal)
CPT/HCPCS: 93010; 99213

== ENCOUNTER → 2023-04-27 12:52 | Outpatient (BNVA) | payer OTHER, SELFPAY | PROVIDERS: PCP Internal Medicine; Visit Provider Nurse Practitioner Family | DX: R00.2 Palpitations (principal); R00.1 Bradycardia, unspecified; I10 Essential (primary) hypertension; Z79.899 Other long term (current) drug therapy | CPT/HCPCS: 93005; 99212 ==

== ENCOUNTER 2023-07-04 10:49 | Outpatient (AMB) | payer OTHER, SELFPAY ==
[2023-07-04 10:51] VITALS: BP 108/68; PULSE 68; O2SAT 98; BMI 39.4
--- NOTE | 2023-07-04 10:51 | A.OFFPC_ITS ---
Vital Signs 07/04/23 10:51 Height 4 ft 11 in Weight 195 lb BMI 39.4 BP 108/68 Blood Pressure Location Lt brachial Position Sitting Pulse 68 Pulse Source Pulse Oximeter Pulse Oximetry (%) 98 Oxygen Delivery Method Room Air Intake Visit Reasons: Annual Exam Adaptive Physical Educator Required: Yes Lithographers Printer: Not Required per policy Accompanied by: Self / Same As Patient Allergies No Known Allergies [No Known Allergies*] Allergy (Verified 07/04/23 10:51) Medication List - Last Reconciled 07/04/23 by Torey Irizarry MD albuterol sulfate 90 mcg/actuation (ProAir HFA) 2 puffs inhalation Q4H PRN atorvastatin 10 mg PO DAILY blood pressure monitor As directed duloxetine 30 mg PO DAILY hydrochlorothiazide 12.5 mg PO DAILY metoprolol succinate ER 25 mg PO BID 90 days mirabegron ER (Myrbetriq) 50 mg PO DAILY 90 days naproxen (Naprosyn) 500 mg PO BID PRN tizanidine 2 mg PO Q8H PRN trazodone 100 mg PO BEDTIME Tobacco use date assessed: 01/04/23 Dental Screening Dental Screen Date: 07/04/23 Did you have a dental visit in the last 12 months?: Yes Did you have a dental problem in the last 6 months where you did not have access to dental care?: No Was dental information given to patient?: Patient has dentist HPI Annual Exam HPI Details asthma HTN and hyperlipidemia; doing well and compliant [facility] Medical History Right flank pain Burning with urination Obesity Hypertension Asthma Hyperlipidemia Surgical History History of vein stripping History of hysterectomy History of tubal ligation Family History Father Alcoholism Substance use disorder Mother Diabetes Paternal Grandfather CVD (cardiovascular disease) Social History Housing: Apartment Alcohol intake: never Patient Tobacco Use Status: Never used Tobacco e-Cigarette/Vaping Use: Never Used Second Hand Smoke Exposure: No service: No Current occupational status: disabled Cognitive needs: No Hearing needs: No Vision needs: No Questionnaire Thrive Questionnaire Date Thrive assessed: 09/28/22 RUBIA-7 AMB Questionnaire RUBIA-7 Date RUBIA - 7 assessed: 09/28/22 Source: Developed by Drs. Rizwan aGrcia, Miroslava Saez, Rigo Mccoy and colleagues, with an educational wilfredo from [employer]. Review of Systems Const Denies chills, Denies fatigue, Denies headache(s) and Denies weight loss Eyes Denies change in vision, Denies diplopia and Denies eye pain ENT Denies vertigo, Denies dizziness, Denies headache(s) and Denies nasal discharge Card Denies chest pain, Denies rapid heart rate and Denies dyspnea on exertion Resp Denies chest congestion, Denies cough, Denies pain with cough and Denies dyspnea on exertion GI Denies abdominal pain, Denies hematochezia and Denies change in bowel habits Musc Denies myalgias, Denies arthralgias and Denies joint swelling Skin/Breast Denies lesions and Denies unusual bruising Neuro Denies vertigo, Denies dizziness, Denies headache(s) and Denies focal weakness Endo Denies fatigue Physical exam (Primary Care) Vital Signs: Last Vital Signs Pulse 68 07/04/23 10:51 BP 108/68 07/04/23 10:51 Pulse Ox 98 07/04/23 10:51 Oxygen Delivery Method Room Air 07/04/23 10:51 BMI result Body Mass Index 39.4 Tobacco/Smoking Status: Tobacco use Status Tobacco use date assessed 01/04/23 07/04/23 10:56 Patient Tobacco Use Status Never used Tobacco 07/04/23 10:56 e-Cigarette/Vaping Use Never Used 07/04/23 10:56 Thrive Assessment: Date of Thrive Assessment Date Thrive assessed 09/28/22 07/04/23 10:56 Const General: cooperative, healthy appearing and no acute distress Orientation/consciousness: oriented to person, oriented to place and oriented to time HENCA Head: Yes normal to inspection, Yes normocephalic and Yes atraumatic Mouth: Normal oral and palatal mucosa present and tongue normal Throat: Yes posterior oropharynx normal and Yes uvula midline Eyes General: appearance normal, both eyes and all related structures Neck Neck: Yes normal visual inspection, Yes full ROM and Yes no lymphadenopathy Thyroid: Thyroid normal Carotids: normal carotid upstroke Chest Chest palpation & inspection: normal inspection of the chest Resp Effort & Inspection: normal respiratory effort and able to speak in complete sentences Auscultation: clear to auscultation bilaterally Cardio Jugular venous distension: no JVD Palpation: normal PMI Rate: regular rate Rhythm: regular rhythm Heart sounds: S1 normal heart sound present and S2 normal heart sound present GI Inspection: Yes normal to inspection Palpation (GI): Soft to palpation and No hepatosplenomegaly present Auscultation: normal bowel sounds General: Yes no CVA tenderness Back/Spine/Pelvis Back: no CVA tenderness Skin General skin exam: no rashes or lesions noted Neuro General: oriented to person, oriented to place and oriented to time Extrem General: Yes normal to inspection and Yes full ROM Assessment and Plan Assessment & Plan (1) Physical exam: Code(s): Z00.00 - Encounter for general adult medical examination without abnormal findings Plan: stable; do labs (2) Hypertension: Code(s): I10 - Essential (primary) hypertension Qualifiers: Hypertension type: primary hypertension Qualified Code(s): I10 - Essential (primary) hypertension Plan: stable; same rx (3) Asthma: Comment: stable; cont meds Code(s): J45.909 - Unspecified asthma, uncomplicated Plan: stable; same rx Orders: Orders Lipid Panel Today E78.5 - Hyperlipidemia, unspecified Thyroid Stimulating Hormone Today E03.9 - Hypothyroidism, unspecified Comprehensive [place]. Panel Fast Today N28.9 - Disorder of kidney and ureter, unspecified Complete Blood Count Auto Diff Today D64.9 - Anemia, unspecified Coding Level of Care Code Est Pt Prev Care 40-64y(55583) Diagnoses Physical exam Z00.00 Primary hypertension I10 Hypertension type: primary hypertension Asthma J45.909
== END 2023-07-04 11:10 | disposition home or self-care (01) ==
PROVIDERS: Visit Provider Internal Medicine
DX: Z00.00 Encounter for general adult medical examination without abnormal findings (principal); I10 Essential (primary) hypertension; J45.909 Unspecified asthma, uncomplicated
CPT/HCPCS: 99396

== ENCOUNTER 2023-07-11 11:00 | Outpatient (RCR) | payer OTHER, SELFPAY ==
--- NOTE | 2023-05-25 12:02 | MHC.PT.EP ---
[facility] [place] Office [place] Office [place] Office [address] Rodríguez Tyler [address] [phone] F: [phone] F: [phone] F: [phone] F: [phone] Physical Therapy Plan of Care Date of Evaluation: 05/25/23 Date of Surgery: Diagnosis: UUI Assessment: 58 y/o female referred to PT with UUI. Reports urgency with associated UI with keys in door, running water, shower, taking pants down to urinate and shopping. She is now on Myrbetriq which has improved sx however now she notices she does not get urge sensation and can go 4-5 hours without using bathroom. Pt provided consent to pelvic floor assessment next visit. Examination today shows decreased lumbar/hip AROM and strength, decreased coordination of load transfer, breath holding, and impaired posture. Recommend PT 1x/week for 6 weeks to address impairments, implement HEP, and optimize functional mobilty. Educated pt on role of pelvic PT, plan of care, prognosis, education on anatomy using 3D model and pain management. Also education and distribution of hand out for breathing and urge suppression techniques Frequency and Duration: The patient will be seen 1x/week for 6 weeks Short Term Goals: 1. Pt to be able to correctly activate her PFM to allow improved support to bowel and bladder. 2. Pt to be able to demonstrate diaphragmatic breathing to improve pressure exchange and intra abdominal load management. 3. Pt to be educated on bladder irritants in order to decrease UI triggers 4. Pt to complete a voiding log in order to accurately assess her bladder habits 5. Pt to be educated on behavior training to help decrease urge incontinence. Slagger Goals: 1. Pt to be able to show improved PFM contraction during functional movements such as a bridge or squat to help prevent or limit POP. 2. Pt to reduce # of episodes of UUI during the day by 50% to help improve quality of life and reduce underwear changes. 3. Pt to be independent with her final HEP for PFM in order to help maintain gains made in therapy. Treatment Plan: Modalities to reduce pain, spasms and effusion. Manual therapy to restore motion and function. Therapeutic exercise to improve strength and flexibility. Neuromuscular re-education for posture and balance. Therapeutic activities to return to functional activities of daily living. Electronically signed by: Please sign and return to therapist. Thank you for your referral.
--- NOTE | 2023-08-17 14:38 | MHC.PT.DC ---
[facility] [place] Office [place] Office [place] Office [address] Rodríguez Tyler [address] [phone] F: [phone] F: [phone] F: [phone] F: [phone] Physical Therapy Discharge Report Diagnosis: UUI Date of Surgery: Date of Evaluation: 05/25/23 Date of Discharge: 08/17/23 Treatments to Date: 5 Cancellations to Date: 1 No Shows to Date: 0 Discharge Status: Improved Function Independent with HEP Discharge Summary: Pt I with HEP and urgency deferment strategies. D/c at this time Electronically signed by: Madeline Charlton PT Please sign and return to therapist. Thank you for your referral.
== END 2023-08-17 14:38 | disposition home or self-care (01) ==
LOC: HO.PT 11:00
PROVIDERS: PCP Internal Medicine; Visit Provider Nurse Practitioner Family
DX: N39.41 Urge incontinence (principal)
CPT/HCPCS: 97110; 97112; 97162

== ENCOUNTER 2023-07-13 10:26 | Outpatient (AMB) | payer OTHER, SELFPAY ==
[2023-07-13 10:27] VITALS: BP 110/62; PULSE 70; BMI 40.0
--- NOTE | 2023-07-13 10:27 | A.OFFPC_ITS ---
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 Medical Collections Specialist: Not Required per policy Accompanied by: Self / Same As Patient Allergies No Known Allergies [No Known Allergies*] Allergy (Verified 07/13/23 10:28) Medication List - Last Reconciled 07/13/23 by Torey Irizarry MD albuterol sulfate 90 mcg/actuation (ProAir HFA) 2 puffs inhalation Q4H PRN atorvastatin 10 mg PO DAILY blood pressure monitor As directed duloxetine 30 mg PO DAILY hydrochlorothiazide 12.5 mg PO DAILY metoprolol succinate ER 25 mg PO BID 90 days mirabegron ER (Myrbetriq) 50 mg PO DAILY 90 days naproxen (Naprosyn) 500 mg PO BID PRN tizanidine 2 mg PO Q8H PRN trazodone 100 mg PO BEDTIME Tobacco use date assessed: 01/04/23 Dental Screening Dental Screen Date: 07/13/23 Did you have a dental visit in the last 12 months?: Yes Did you have a dental problem in the last 6 months where you did not have access to dental care?: No Was dental information given to patient?: Patient has dentist HPI Congestion HPI Details facial pressure and congestion for a week PFSH Medical History Right flank pain Burning with urination Obesity Hypertension Asthma Hyperlipidemia Surgical History History of vein stripping History of hysterectomy History of tubal ligation Family History Father Alcoholism Substance use disorder Mother Diabetes Paternal Grandfather CVD (cardiovascular disease) Social History Housing: Apartment Alcohol intake: never Patient Tobacco Use Status: Never used Tobacco e-Cigarette/Vaping Use: Never Used Second Hand Smoke Exposure: No service: No Current occupational status: disabled Cognitive needs: No Hearing needs: No Vision needs: No Questionnaire Thrive Questionnaire Date Thrive assessed: 09/28/22 RUBIA-7 AMB Questionnaire RUBIA-7 Date RUBIA - 7 assessed: 09/28/22 Source: Developed by Drs. Rizwan Garcia, Miroslava Saez, Rigo Mccoy and colleagues, with an educational wilfredo from [employer]. Review of Systems Const Denies chills, Denies headache(s) and Denies weight loss ENT Denies headache(s) Card Denies chest pain, Denies syncope, Denies irregular heart rhythm and Denies dyspnea Resp Denies chest congestion, Denies cough and Denies dyspnea GI Denies abdominal pain, Denies change in stool character, Denies nausea and Denies vomiting Musc Denies deformity and Denies joint swelling Neuro Denies syncope and Denies headache(s) Physical exam (Primary Care) Vital Signs: Last Vital Signs Pulse 70 07/13/23 10:27 BP 110/62 07/13/23 10:27 Oxygen Delivery Method Room Air 07/13/23 10:27 BMI result Body Mass Index 40.0 Tobacco/Smoking Status: Tobacco use Status Tobacco use date assessed 01/04/23 07/13/23 10:31 Patient Tobacco Use Status Never used Tobacco 07/13/23 10:31 e-Cigarette/Vaping Use Never Used 07/13/23 10:31 Thrive Assessment: Date of Thrive Assessment Date Thrive assessed 09/28/22 07/13/23 10:31 Const General: cooperative, comfortable, no acute distress and alert Neck Neck: Yes no lymphadenopathy Thyroid: Thyroid normal Resp Effort & Inspection: normal respiratory effort Auscultation: clear to auscultation bilaterally Percussion: percussion normal Cardio Jugular venous distension: no JVD Palpation: normal PMI Rate: regular rate Rhythm: regular rhythm Heart sounds: S1 normal heart sound present and S2 normal heart sound present GI Inspection: Yes normal to inspection Palpation (GI): No hepatosplenomegaly present Skin General skin exam: no rashes or lesions noted Extrem General: Yes no clubbing, cyanosis or edema Assessment and Plan Assessment & Plan (1) Sinusitis: Code(s): J32.9 - Chronic sinusitis, unspecified Plan: rx Medications: New azithromycin take 500 mg today (day 1), then 250 mg for 4 days (days 2-5) PO 6 tabs 0RF Coding Level of Care Code Est Pt Level 3 (20507) Diagnoses Sinusitis J32.9
== END 2023-07-13 10:39 | disposition home or self-care (01) ==
PROVIDERS: PCP Internal Medicine; Visit Provider Internal Medicine
DX: J32.9 Chronic sinusitis, unspecified (principal)
CPT/HCPCS: 99213

== ENCOUNTER 2023-07-26 08:20 | Outpatient (REF) | payer OTHER, SELFPAY ==
[2023-07-26 08:44] LABS: Basophils Percent Auto 0.5 % (0-2); Eosinophils Absolute Auto 0.2 X10*3/uL (0.0-0.4); Eosinophils Percent Auto 2.7 % (0-4); Hematocrit 36.4 % (37.0-47.0); Imm Gran Abs Auto 0.02 X10*3/uL (0.00-0.03); Imm Gran Pct Auto 0.3 % (0.0-0.4); Lymphocytes Absolute Auto 1.6 X10*3/uL (1.2-4.9); Lymphocytes Percent Auto 26.9 % (20-40); MANUAL DIFF FLAG NO; Mean Corpuscular Hemoglobin 31.7 pg (27.0-33.0); Mean Platelet Volume 10.7 fL (9.4-12.3); Monocytes Absolute Auto 0.5 X10*3/uL (0.1-1.2); Monocytes Percent Auto 8.8 % (2-11); Neutrophils Absolute Auto 3.6 x10*3/uL (2.0-8.3); Neutrophils Percent Auto 60.8 % (45-73); Platelet Count 265 X10*3/uL (160-400); Red Blood Count 3.79 X10*6/uL (4.20-5.50); Red Cell Distribution Width 12.7 % (11.0-16.0); White Blood Count 5.9 X10*3/uL (4.8-10.8)
[2023-07-26 09:18] LABS: Alanine Aminotransferase 27 U/L (0-31); Albumin Level 4.1 g/dL (3.5-5.0); Alkaline Phosphatase 76 U/L (39-117); Anion Gap 10 (12-20); Aspartate Amino Transferase 21 U/L (5-31); Bilirubin Total 0.5 mg/dL (0.0-1.0); Blood Urea Nitrogen 16 mg/dL (9-16); Calcium 9.4 mg/dL (8.4-10.2); Carbon Dioxide 27 mmol/L (22-29); Chloride 106 mmol/L (96-108); Cholesterol 163 mg/dL (<200); Estimated Glomerular Filt Rate > 60; Glucose Fasting 117 mg/dL (60-99); HDL Cholesterol 47 mg/dL (>40); LDL Cholesterol Calculated 103 mg/dL (<100); Potassium 3.9 mmol/L (3.3-5.1); Sodium 139 mmol/L (135-145); Total Protein 7.4 g/dL (6.5-8.0); Triglycerides 69 mg/dL (<150)
[2023-07-26 09:34] LABS: Thyroid Stimulating Hormone 1.58 uIU/mL (0.32-4.0)
== END 2023-07-26 08:21 | disposition home or self-care (01) ==
LOC: HO.LAB 08:20
PROVIDERS: PCP Internal Medicine; Visit Provider Internal Medicine
DX: E78.5 Hyperlipidemia, unspecified (principal); E03.9 Hypothyroidism, unspecified; D64.9 Anemia, unspecified; N28.9 Disorder of kidney and ureter, unspecified
CPT/HCPCS: 36415; 80053; 80061; 84443; 85025

== ENCOUNTER 2023-10-17 09:21 | Outpatient (AMB) | payer OTHER, SELFPAY ==
[2023-10-17 09:56] VITALS: BP 120/74; PULSE 56; BMI 39.1
--- NOTE | 2023-10-17 09:56 | MHC.OFFVIS ---
Intake Vital Signs 10/17/23 09:56 Height 4 ft 11 in Weight 193 lb 9.054 oz BMI 39.1 BP 120/74 Blood Pressure Location Lt brachial Position Sitting Pulse 56 Pulse Source Pulse Oximeter Intake Visit Reasons: 6 month follow up Clinical Data Analyst Required: Yes Clinical Data Analyst Language: Grocery Clerk Stocking Name: mayda hamilton [id number] Allergies No Known Allergies [No Known Allergies*] Allergy (Verified 10/17/23 10:00) Medication List - Last Reconciled 10/17/23 by Pastora Amaya NP-C albuterol sulfate 90 mcg/actuation (ProAir HFA) 2 puffs inhalation Q4H PRN atorvastatin 10 mg PO DAILY blood pressure monitor As directed duloxetine 30 mg PO DAILY duloxetine 20 mg PO DAILY hydrochlorothiazide 12.5 mg PO DAILY metoprolol succinate ER 25 mg PO BID 90 days mirabegron ER (Myrbetriq) 50 mg PO DAILY 90 days naproxen (Naprosyn) 500 mg PO BID PRN tizanidine 2 mg PO Q8H PRN trazodone 100 mg PO BEDTIME HPI 6 month follow up HPI Details Temitope is a 58-year-old female past medical history of hypertension, hyperlipidemia, pericarditis, heart palpitations who presents for follow-up. Today she reports that she continues to feel heart palpitations at times that cause her some concern. She feels a quick sensation in her chest lasting only a second and resolving but it can happen over and over again. She has not had any sustained rapid or irregular heartbeats. No presyncope, syncope, falls. No chest discomfort at rest or with activity. No shortness of breath, PND, orthopnea or edema. She has been taking her meds as directed. She tries to remain physically active. Certified translator and interpreter used. [facility] Medical History Right flank pain Burning with urination Obesity Hypertension Asthma Hyperlipidemia Surgical History History of vein stripping History of hysterectomy History of tubal ligation Family History Father Alcoholism Substance use disorder Mother Diabetes Paternal Grandfather CVD (cardiovascular disease) Social History Housing: Apartment Alcohol intake: never Patient Tobacco Use Status: Never used Tobacco e-Cigarette/Vaping Use: Never Used Second Hand Smoke Exposure: No service: No Current occupational status: disabled Cognitive needs: No Hearing needs: No Vision needs: No Review of Systems Const All systems reviewed & are unremarkable except as noted in HPI and below ENT Denies dizziness Card Denies chest pain, Denies chest pain at rest, Denies chest pain with activity, Reports rapid heart rate, Denies pedal edema, Denies edema, Denies leg edema, Denies lightheadedness, Denies palpitations, Denies dyspnea, Denies dyspnea on exertion and Denies orthopnea Resp Denies cough, Denies dyspnea and Denies dyspnea on exertion GI Denies hematochezia and Denies change in stool character Musc Denies abnormal gait, Denies limited range of motion, Denies muscle cramps, Denies muscle weakness, Denies numbness, Denies radiating pain into limb, Denies stiffness and Denies tingling Neuro Denies abnormal gait, Denies dizziness, Denies numbness and Denies tingling Endo Denies palpitations Physical Exam Vital Signs: Last Vital Signs Pulse 56 10/17/23 09:56 BP 120/74 10/17/23 09:56 BMI result Body Mass Index 39.1 Const General: cooperative, healthy appearing, comfortable and no acute distress Orientation/consciousness: patient oriented x3 Neck Neck: Yes normal visual inspection Resp Effort & Inspection: normal respiratory effort Auscultation: clear to auscultation bilaterally, no crackles, no rales, no rhonchi and no wheezes Cardio Jugular venous distension: no JVD Rate: regular rate Rhythm: regular rhythm Heart sounds: S1 normal heart sound present, S2 normal heart sound present, no murmurs and no rubs Neuro General: patient oriented x3 Extrem General: Yes normal to inspection Psych Appearance: grossly normal Mental Status: mental status grossly normal Speech and movement: Normal speech and movement present Assessment & Plan Assessment & Plan (1) Palpitations: Code(s): R00.2 - Palpitations Plan: Report of heart palpitations, brief, lasting a second and resolving then reoccurring at times. Holter monitor was done on 07/19/2022 for 5 days showing sinus rhythm with average heart rate 63, rare PVCs, no pauses or AV blocks. Echocardiogram done on 10/15/2022 showed EF 57%, no valve abnormalities no regional wall motion abnormality. She was put on metoprolol to help relieve her palpitations. She continues on 25 mg b.i.d.. She continues to report some palpitations but no sustained rapid or irregular beats. Offered reassurance. Informed that if she has a day where she has extra heart palpitations she may take an additional dose of metoprolol tartrate. Continue on current metoprolol well. Reviewed reduction/cessation of caffeinated beverages, stress reduction activities, continue activity as tolerated. If she has increasing heart palpitations she will notify this office and repeat Holter monitor will be done. She prefers a cardiology follow-up in 6 months, sooner if needed (2) Sinus bradycardia: Code(s): R00.1 - Bradycardia, unspecified Plan: EKG done today showing sinus bradycardia. She has no weakness, presyncope, syncope, falls. She will let us know if she has any changes to how she is feeling. (3) S/P cardiac catheterization: Comment: 11/03/2021 showing normal coronary arteries Code(s): Z98.890 - Other specified postprocedural states Plan: Noted (4) Hypertension: Code(s): I10 - Essential (primary) hypertension Qualifiers: Hypertension type: primary hypertension Qualified Code(s): I10 - Essential (primary) hypertension Plan: Well controlled at this time. No medication changes made. Continue metoprolol, hydrochlorothiazide. Plan Time spent on chart review, documentation, interview and assessment Coding Level of Care Code Est Pt Level 3 (04052) Diagnoses Palpitations R00.2 Sinus bradycardia R00.1 S/P cardiac catheterization Z98.890 Primary hypertension I10 Hypertension type: primary hypertension
== END 2023-10-17 10:31 | disposition home or self-care (01) ==
PROVIDERS: PCP Internal Medicine; Visit Provider Nurse Practitioner Family
DX: R00.2 Palpitations (principal); R00.1 Bradycardia, unspecified; Z98.890 Other specified postprocedural states; I10 Essential (primary) hypertension
CPT/HCPCS: 99213

== ENCOUNTER → 2023-10-17 09:21 | Outpatient (BNVA) | payer OTHER, SELFPAY | PROVIDERS: PCP Internal Medicine; Visit Provider Nurse Practitioner Family | DX: R00.2 Palpitations (principal); R00.1 Bradycardia, unspecified; I10 Essential (primary) hypertension; Z98.890 Other specified postprocedural states | CPT/HCPCS: 99212 ==

== ENCOUNTER 2024-03-20 09:15 | Outpatient (REF) | payer OTHER, SELFPAY ==
[2024-03-20 17:06] LABS: Urine Cytology See Pathology rpt
== END 2024-03-20 09:16 | disposition home or self-care (01) ==
LOC: HO.LNP 09:15
PROVIDERS: PCP Internal Medicine; Visit Provider Nurse Practitioner Family
DX: N39.41 Urge incontinence (principal); R31.29 Other microscopic hematuria; R39.89 Other symptoms and signs involving the genitourinary system
CPT/HCPCS: 51798; 81003; 88112; 99212

== ENCOUNTER 2024-03-20 09:15 | Outpatient (AMB) | payer OTHER, SELFPAY ==
--- NOTE | 2024-03-20 09:32 | MHC.OFFVIS ---
Intake Visit Reasons: 1yr follow up/PVR Intake Note: Patient presents for follow up incontinence Urology Medications: myrbetriq Blood Thinner: None PVR: 0ml's Visual Education Director Required: Yes Visual Education Director Name: [id number] Accompanied by: Self / Same As Patient Allergies No Known Allergies [No Known Allergies*] Allergy (Verified 03/20/24 10:34) Medication List - Last Reconciled 03/20/24 by GÉNESIS Newsome albuterol sulfate 90 mcg/actuation (ProAir HFA) 2 puffs inhalation Q4H PRN atorvastatin 10 mg PO DAILY blood pressure monitor As directed duloxetine 30 mg PO DAILY duloxetine 20 mg PO DAILY hydrochlorothiazide 12.5 mg PO DAILY metoprolol succinate ER 25 mg PO BID 90 days mirabegron ER (Myrbetriq) 50 mg PO DAILY 90 days naproxen (Naprosyn) 500 mg PO BID PRN tizanidine 2 mg PO Q8H PRN trazodone 100 mg PO BEDTIME HPI Comments Details: Temitope is a pleasant 59 year old Chadian speaking female patient of Dr. Irizarry. She has a past medical history of asthma, hyperlipidemia, hypertension, and obesity. She presents to the office today for a follow up of her lower urinary tract symptoms. In discussion with the patient today she reports since her last office visit here approximately one year ago she has felt Myrbetriq has not been as effective as prior. She reports feeling initially it had helped significantly with episodes of mixed urinary incontinence she had been experiencing however, within the last 3-4 months feels she has continued with bladder pressure and mixed urinary incontinence. She discusses utilizing approximately 1-3 [place] pads per day. She reports using public transportation and finds it difficult to manage given her mixed urinary incontinence. Previous workup has included a retroperitoneal ultrasound 01/20 showing bilateral kidneys with no calculi, lesions, and or hydronephrosis noted. The bladder is distended and normal. Bilateral ureteral jets are demonstrated. Prevoid bladder volume is 328 mL. Postvoid bladder volume is 44.2 mL. In office urinalysis results reviewed with the patient today trace microscopic hematuria, negative leukocytes and negative nitrates. She denies any previous history of smoking and or workplace chemical exposure. PVR 0 mLs. In the past she has trailed oxybutynin however experienced dry mouth and constipation. She also has had a cystoscopy hydrodistention in the past for interstitial cystitis with improvement in cystitis symptoms she had been experiencing at that time. Microscopic hematuria likely related to history of interstitial cystitis. When asked she denies nocturia, hematuria, dysuria, foul smelling urine, changes to urinary stream, flank pain, fever, and or chills. Discussed at length potential causes of mixed urinary incontinence. We discussed further treatment options and risks and benefits of these treatment options. She otherwise offers no other issues or concerns at this time. [facility] Medical History (Reviewed 03/20/24 @ 10:40 by Kaley Hansen [facility]) Right flank pain Burning with urination Obesity Hypertension Asthma Hyperlipidemia Surgical History History of vein stripping History of hysterectomy History of tubal ligation Family History Father Alcoholism Substance use disorder Mother Diabetes Paternal Grandfather CVD (cardiovascular disease) Social History Housing: Apartment Alcohol intake: never Patient Tobacco Use Status: Never used Tobacco e-Cigarette/Vaping Use: Never Used Second Hand Smoke Exposure: No service: No Current occupational status: disabled Cognitive needs: No Hearing needs: No Vision needs: No Review of Systems Const Reports no additional complaints Eyes Reports no additional complaints ENT Reports no additional complaints Card Reports as per HPI Resp Reports no additional complaints GI Reports no additional complaints Reports as per HPI Musc Reports no additional complaints Neuro Reports no additional complaints Psych Reports no additional complaints Endo Reports no additional complaints Jose Alberto/Lymph Reports no additional complaints Aller/Immun Reports no additional complaints Physical Exam Const General: cooperative, healthy appearing, comfortable, no acute distress, well developed, alert and awake Nutritional Appearance: overweight Orientation/consciousness: patient oriented x3 Limitations: no limitations HEENT Head: Yes normal to inspection, Yes normocephalic and Yes atraumatic Ears: hearing grossly normal bilaterally Eyes General: appearance normal, both eyes and all related structures Neck Neck: Yes normal visual inspection and Yes trachea midline Chest Chest palpation & inspection: normal inspection of the chest Resp Effort & Inspection: normal respiratory effort and able to speak in complete sentences Cardio Rate: regular rate GI Inspection: Yes normal to inspection General: Yes no CVA tenderness Back/Spine/Pelvis Back: no CVA tenderness Skin General skin exam: no rashes or lesions noted Neuro General: patient oriented x3 Extrem General: Yes normal to inspection Psych Appearance: grossly normal and well kempt Mental Status: mental status grossly normal Speech and movement: Normal speech and movement present and Clear speech present Affect: normal affect Attitude: cooperative Thought process: Normal thought process present Thought content: Normal thought content present Insight: Fair insight present (Psych) Judgement: Fair judgement present (Psych) Office Procedures Post Void Residual Post Residual Void Post Void Residual (PVR): 0 [id number] Void Residual by ultrasound Results AMB Urinalysis, Automated UA Leukoctes 0 Lea/uL Last Edit by [facility] on 03/20/24 10:10 UA Nitrite Negative Last Edit by [facility] on 03/20/24 10:10 UA Urobilinogen 0.2 mg/dL Last Edit by [facility] on 03/20/24 10:10 UA Protein 0 mg/dL Last Edit by [facility] on 03/20/24 10:10 UA pH 6.5 Last Edit by [facility] on 03/20/24 10:10 UA Blood 10 Sy/uL Last Edit by [facility] on 03/20/24 10:10 UA Specific [place] 1.010 Last Edit by [facility] on 03/20/24 10:10 UA Ketone Last Edit by [facility] on 03/20/24 10:10 UA Bilirubin 0 mg/dL Last Edit by [facility] on 03/20/24 10:10 UA Glucose 0 mg/dL Last Edit by [facility] on 03/20/24 10:10 Results Reviewed Results Reviewed: Laboratory Last Values Urine pH (Auto) 6.5 03/20/24 10:09 Specific [place] (Auto) 1.010 03/20/24 10:09 Urine Protein (Auto) 0 mg/dL 03/20/24 10:09 Glucose (UA)(Auto) 0 mg/dL 03/20/24 10:09 Urine Blood (Auto) 10 Sy/uL 03/20/24 10:09 Urine Nitrite (Auto) Negative 03/20/24 10:09 Urine Bilirubin (Auto) 0 mg/dL 03/20/24 10:09 Urine Urobilinogen (Auto) 0.2 mg/dL 03/20/24 10:09 Leukocyte Esterase (Auto) 0 Lea/uL 03/20/24 10:09 Assessment & Plan Assessment & Plan (1) Urinary incontinence, urge: Code(s): N39.41 - Urge incontinence Category: Medical (2) Sensation of pressure in bladder area: Code(s): R39.89 - Other symptoms and signs involving the genitourinary system Category: Medical (3) Microscopic hematuria: Code(s): R31.29 - Other microscopic hematuria Category: Medical Plan In office urinalysis results reviewed with the patient today; as noted above; will send for urine cytology. Discussed at length potential causes of mixed urinary incontinence; discussed further treatment options and risks and benefits of these interventions. Discussed importance of weight loss to assist with mixed urinary incontinence. Discussed bladder triggers/irritants. Will obtain retroperitoneal ultrasound for further assessment evaluation. Stop Myrbetriq Start Gemtesa as discussed and prescribed. Discussed possible near future in office cystoscopy and or urodynamics if symptoms persist and/or worsen. Follow-up in 3 months with imaging and PVR; or sooner with any issues, concerns, and or questions. Orders: Orders AMB Urinalysis Automated Today Z13.9 - Encounter for screening, unspecified AMB Post Void Residual by ultrasound Today N39.41 - Urge incontinence Medications: New vibegron (Gemtesa) 75 mg PO DAILY 30 days 30 tabs 2RF N32.81 - Overactive bladder Discontinued mirabegron ER (Myrbetriq) Discontinued Reason: Doctor's Order 50 mg PO DAILY 90 days 90 tabs 3RF Patient Instructions: The patient had an opportunity to ask questions regarding the treatment plan. All questions were answered. Physical exam, labs, and imaging were discussed and reviewed in detail. As well as risks, benefits, and discussion of treatment choices. No major barriers to understanding were identified. The patient expressed understanding and agreement with the above treatment plan. The patient was made aware they should contact our office by phone for worsening of their current condition, the appearance of new symptoms, or with any questions or concerns. Compliance is encouraged with any medications and follow up testing that is ordered. It is a privilege to be allowed the opportunity to participate in? your urological care.? Again, if you have any questions or concerns If you have any questions or concerns please do not hesitate to contact me. The office is [phone]. This note is constructed using voice recognition software. While every effort has been made to ensure accuracy water proofer errors may have been included. Yours sincerely, ANNEMARIE Newsome-CESARIO Coding Level of Care Code Est Pt Level 4 (07395) Diagnoses Urinary incontinence, urge N39.41 Sensation of pressure in bladder area R39.89 Microscopic hematuria R31.29 CPT Codes Post Residual Void - PVR CPT Code: 17502-Pgsn Void Residual by ultrasound ([id number])
== END 2024-03-20 10:04 | disposition home or self-care (01) ==
PROVIDERS: PCP Internal Medicine; Visit Provider Nurse Practitioner Family
DX: N39.41 Urge incontinence (principal); R39.89 Other symptoms and signs involving the genitourinary system; R31.29 Other microscopic hematuria; Z13.9 Encounter for screening, unspecified
CPT/HCPCS: 99214

== ENCOUNTER 2024-03-28 11:29 | Outpatient (REF) | payer OTHER, SELFPAY ==
--- NOTE | ~2024-03-28 | US_ITS ---
EXAMINATION: US RETROPERITONEAL COMPLETE (RENAL) CLINICAL INFORMATION: Unspecified abdominal pain. COMPARISON: Ultrasound retroperitoneal 01/19/2023. Ultrasound abdomen 11/19/2018. TECHNIQUE: Real-time imaging of the kidneys and bladder. Limited visualization due to bowel gas. FINDINGS: RIGHT KIDNEY: 11.0 x 4.8 x 4.7 cm (SAG x AP x TRV). No hydronephrosis. No renal calculi. Renal cortical thickness is normal. Limited visualization. LEFT KIDNEY: 11.4 x 5.3 x 4.5 cm (SAG x AP x TRV). No hydronephrosis. No renal calculi. Renal cortical thickness is normal. Limited visualization. BLADDER: Well-distended. Bilateral ureteral jets are demonstrated. Prevoid bladder volume is 225 mL. Postvoid bladder volume is 7.9 mL. US/US retroperitoneal comp IMPRESSION: 1. No hydronephrosis. No renal calculi. Limited visualization. 2. Postvoid bladder volume 7.9 mL. Electronically signed by: Marcie Geronimo MD 04/08/2024 09:53 AM EDT
== END 2024-03-28 11:30 | disposition home or self-care (01) ==
LOC: HO.US 11:29
PROVIDERS: PCP Internal Medicine; Visit Provider Nurse Practitioner Family
DX: R10.9 Unspecified abdominal pain (principal); R31.29 Other microscopic hematuria; R39.89 Other symptoms and signs involving the genitourinary system
CPT/HCPCS: 76770

== ENCOUNTER 2024-04-08 10:05 | Outpatient (REF) | payer OTHER, SELFPAY ==
--- NOTE | ~2024-04-08 | MM_ITS ---
EXAMINATION: MM SCREENING DIGITAL BREAST TOMOSYNTHESIS, BILATERAL CLINICAL INFORMATION: Screening. Asymptomatic. COMPARISON: Mammography: Comparison is made with available priors TECHNIQUE: Digital breast mammography with tomosynthesis is performed in both the craniocaudal and mediolateral oblique views along with computer-aided detection (CAD). FINDINGS: There are scattered areas of fibroglandular density (ACR BI-RADS breast composition Category b). There are no significant masses, abnormal calcifications, or other abnormalities. MM/MM tomosynthesis screening BI IMPRESSION: No mammographic evidence of malignancy. ASSESSMENT: BI-RADS BI-RADS 1 - Negative RECOMMENDATION: Routine annual mammography screening. 1 year F/U This examination should not preclude the clinical evaluation of a suspicious palpable abnormality. This patient's information was entered into a reminder system with a target due date for their next mammogram. Electronically signed by: Cece Brown DO 04/22/2024 05:52 PM EDT
== END 2024-04-08 10:06 | disposition home or self-care (01) ==
LOC: HO.MAMMO 10:05
PROVIDERS: PCP Internal Medicine; Visit Provider Internal Medicine
DX: Z12.31 Encounter for screening mammogram for malignant neoplasm of breast (principal)
CPT/HCPCS: 77063; 77067

== ENCOUNTER → 2024-04-08 11:15 | Outpatient (BNV) | payer OTHER, SELFPAY | PROVIDERS: PCP Internal Medicine; Visit Provider Internal Medicine | DX: Z12.31 Encounter for screening mammogram for malignant neoplasm of breast (principal) | CPT/HCPCS: 77063; 77067 ==

== ENCOUNTER 2024-04-18 09:34 | Outpatient (AMB) | payer OTHER, SELFPAY ==
[2024-04-18 10:10] VITALS: BP 110/62; PULSE 51; BMI 38.2
--- NOTE | 2024-04-18 10:10 | MHC.OFFVIS ---
Vital Signs 04/18/24 10:10 Height 4 ft 11 in Weight 189 lb 2.506 oz BMI 38.2 BP 110/62 Blood Pressure Location Lt brachial Position Sitting Pulse 51 Pulse Source Monitor Intake Visit Reasons: 6 mth f/up Chief Operator Reformer Required: Yes Chief Operator Reformer Language: Store Protection Specialist Name: mayda gonzales [id number] Allergies No Known Allergies [No Known Allergies*] Allergy (Verified 04/18/24 10:13) Medication List - Last Reconciled 04/18/24 by Pastora Amaya NP-C albuterol sulfate 90 mcg/actuation (ProAir HFA) 2 puffs inhalation Q4H PRN atorvastatin 10 mg PO DAILY blood pressure monitor As directed duloxetine 30 mg PO DAILY duloxetine 20 mg PO DAILY hydrochlorothiazide 12.5 mg PO DAILY metoprolol succinate ER 25 mg PO DAILY naproxen (Naprosyn) 500 mg PO BID PRN tizanidine 2 mg PO Q8H PRN trazodone 100 mg PO BEDTIME venlafaxine ER 75 mg PO DAILY vibegron (Gemtesa) 75 mg PO DAILY 30 days HPI HPI 6 mth f/up: Details: Temitope is a 59-year-old female past medical history of hypertension, hyperlipidemia, pericarditis, heart palpitations who presents for follow-up. Today she reports that she has notice some pinching pains in her left upper chest region. This is causing her some concern. She has not noticed recent heart palpitations. She has been under much stress stating she is no longer with her significant other. She is tearful at this visit. No chest discomfort brought on by physical activity. No presyncope, syncope, falls. No shortness of breath, PND, orthopnea or edema. She has been taking her meds as directed. She tries to remain physically active. 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 [facility] Medical History Right flank pain Burning with urination Obesity Hypertension Asthma Hyperlipidemia Surgical History History of vein stripping History of hysterectomy History of tubal ligation Family History Father Alcoholism Substance use disorder Mother Diabetes Paternal Grandfather CVD (cardiovascular disease) Social History Housing: Apartment Alcohol intake: never Patient Tobacco Use Status: Never used Tobacco e-Cigarette/Vaping Use: Never Used Second Hand Smoke Exposure: No service: No Current occupational status: disabled Cognitive needs: No Hearing needs: No Vision needs: No Review of Systems Const All systems reviewed & are unremarkable except as noted in HPI and below ENT Denies dizziness Card Reports chest pain (quick pinching), Denies chest pain at rest, Denies chest pain with activity, Denies rapid heart rate, Denies pedal edema, Denies edema, Denies leg edema, Denies lightheadedness, Denies palpitations, Denies dyspnea, Denies dyspnea on exertion and Denies orthopnea Resp Denies cough, Denies dyspnea and Denies dyspnea on exertion GI Denies hematochezia and Denies change in stool character Musc Denies abnormal gait, Denies limited range of motion, Denies muscle cramps, Denies muscle weakness, Denies numbness, Denies radiating pain into limb, Denies stiffness and Denies tingling Neuro Denies abnormal gait, Denies dizziness, Denies numbness and Denies tingling Endo Denies palpitations Physical Exam Vital Signs: Last Vital Signs Pulse 51 04/18/24 10:10 BP 110/62 04/18/24 10:10 BMI result Body Mass Index 38.2 Const General: cooperative, healthy appearing, comfortable and no acute distress Orientation/consciousness: patient oriented x3 Neck Neck: Yes normal visual inspection Resp Effort & Inspection: normal respiratory effort Auscultation: clear to auscultation bilaterally, no crackles, no rales, no rhonchi and no wheezes Cardio Jugular venous distension: no JVD Rate: regular rate Rhythm: regular rhythm Heart sounds: S1 normal heart sound present, S2 normal heart sound present, no murmurs and no rubs Neuro General: patient oriented x3 Extrem General: Yes normal to inspection Psych Appearance: grossly normal Mental Status: mental status grossly normal Speech and movement: Normal speech and movement present Office Procedures EKG Details: Today, read by me, sinus bradycardia, rate 51, QTC 398 milliseconds [id number], Complete Assessment & Plan Assessment & Plan (1) Palpitations: Code(s): R00.2 - Palpitations Category: Medical Plan: On prior visit reported heart palpitations, brief, lasting a second and resolving then reoccurring at times. Holter monitor was done on 07/19/2022 for 5 days showing sinus rhythm with average heart rate 63, rare PVCs, no pauses or AV blocks. Echocardiogram done on 10/15/2022 showed EF 57%, no valve abnormalities no regional wall motion abnormality. She was put on metoprolol to help relieve her palpitations. She continues on 25 mg b.i.d.. EKG done today showing sinus bradycardia, rate 51. Pulse recheck done by me later in the visit, pulse 54. No recent heart palpitations. Will reduce her metoprolol down to 25 mg once daily. Reviewed reduction/cessation of caffeinated beverages, stress reduction activities, continue activity as tolerated. She would like to follow with Cardiology, next visit 6 months, sooner if needed (2) Sinus bradycardia: Code(s): R00.1 - Bradycardia, unspecified Category: Medical Plan: EKG done today showing sinus bradycardia, rate 51. Reducing metoprolol dose as above. (3) S/P cardiac catheterization: Comment: 11/03/2021 showing normal coronary arteries Code(s): Z98.890 - Other specified postprocedural states Category: Surgical Plan: Patient reports some pinching pains in the left chest region. Offered much reassurance that this sounds noncardiac in nature. Cardiac catheterization from 10/2021 showed normal coronaries. (4) Hypertension: Code(s): I10 - Essential (primary) hypertension Category: Medical Qualifiers: Hypertension type: primary hypertension Qualified Code(s): I10 - Essential (primary) hypertension Plan: Well controlled at this time. No medication changes made. Continue metoprolol, hydrochlorothiazide. Plan Time spent on chart review, documentation, interview and assessment Medications: New metoprolol succinate ER dose reduced to once daily 25 mg PO DAILY 90 tabs 3RF Discontinued metoprolol succinate ER Discontinued Reason: Doctor's Order 25 mg PO BID 90 days 180 tabs 3RF Coding Level of Care Code Est Pt Level 3 (78950) Diagnoses Palpitations R00.2 Sinus bradycardia R00.1 S/P cardiac catheterization Z98.890 Primary hypertension I10 Hypertension type: primary hypertension CPT Codes EKG - CPT: 39449-Uparwbhkkupngiqfv, Complete ([id number]) Time Spent (min) 24
== END 2024-04-18 10:46 | disposition home or self-care (01) ==
PROVIDERS: PCP Internal Medicine; Visit Provider Nurse Practitioner Family
DX: R00.2 Palpitations (principal); R00.1 Bradycardia, unspecified; Z98.890 Other specified postprocedural states; I10 Essential (primary) hypertension
CPT/HCPCS: 93010; 99213

== ENCOUNTER → 2024-04-18 09:34 | Outpatient (BNVA) | payer OTHER, SELFPAY | PROVIDERS: PCP Internal Medicine; Visit Provider Nurse Practitioner Family | DX: R00.2 Palpitations (principal); R00.1 Bradycardia, unspecified; I10 Essential (primary) hypertension; Z98.890 Other specified postprocedural states | CPT/HCPCS: 93005; 99212 ==

== ENCOUNTER 2024-05-09 11:17 | Outpatient (AMB) | payer OTHER, SELFPAY ==
[2024-05-09 11:21] VITALS: BP 106/70; PULSE 55; O2SAT 96; BMI 37.4
--- NOTE | 2024-05-09 11:21 | MHC.PC.OV ---
Vital Signs 05/09/24 11:21 Height 4 ft 11 in Weight 185 lb BMI 37.4 BP 106/70 Blood Pressure Location Lt brachial Position Sitting Pulse 55 Pulse Source Pulse Oximeter Pulse Oximetry (%) 96 Oxygen Delivery Method Room Air Intake Visit Reasons: Left leg pain Allergies No Known Allergies [No Known Allergies*] Allergy (Verified 05/09/24 11:23) Medication List - Last Reconciled 05/09/24 by Torey Irizarry MD albuterol sulfate 90 mcg/actuation (ProAir HFA) 2 puffs inhalation Q4H PRN atorvastatin 10 mg PO DAILY blood pressure monitor As directed duloxetine 30 mg PO DAILY duloxetine 20 mg PO DAILY hydrochlorothiazide 12.5 mg PO DAILY metoprolol succinate ER 25 mg PO DAILY naproxen (Naprosyn) 500 mg PO BID PRN tizanidine 2 mg PO Q8H PRN trazodone 100 mg PO BEDTIME venlafaxine ER 75 mg PO DAILY vibegron (Gemtesa) 75 mg PO DAILY 30 days Tobacco use date assessed: 05/09/24 Dental Screening Dental Screen Date: 05/09/24 Did you have a dental visit in the last 12 months?: Yes Did you have a dental problem in the last 6 months where you did not have access to dental care?: No Was dental information given to patient?: Patient has dentist HPI Left leg pain HPI Details recurrent pain left knee with swelling PFSH Medical History Right flank pain Burning with urination Obesity Hypertension Asthma Hyperlipidemia Surgical History History of vein stripping History of hysterectomy History of tubal ligation Family History Father Alcoholism Substance use disorder Mother Diabetes Paternal Grandfather CVD (cardiovascular disease) Social History Housing: Apartment Alcohol intake: never Patient Tobacco Use Status: Never used Tobacco Tobacco use type: Cigarette e-Cigarette/Vaping Use: Never Used Second Hand Smoke Exposure: No service: No Current occupational status: disabled Cognitive needs: No Hearing needs: No Vision needs: No Questionnaire PHQ-9 Over the last 2 weeks, how often have you been bothered by any of the following problems? 1. Little interest or pleasure in doing things: several days 2. Feeling down, depressed, or hopeless: several days 3. Trouble falling or staying asleep, or sleeping too much: not at all 4. Feeling tired or having little energy: not at all 5. Poor appetite or overeating: not at all 6. Feeling bad about yourself - or that you are a failure or have let yourself or your family down: not at all 7. Trouble concentrating on things, such as reading the newspaper or watching television: not at all 8. Moving or speaking so slowly that other people could have noticed. Or the opposite - being so fidgety or restless that you have been moving around a lot more than usual: not at all 9. Thoughts that you would be better off or of hurting yourself in some way: not at all Total score: 2 Depression Screening Interpretation: Negative Depression Screening Done: Yes 33377 - PHQ-9 Billing: Yes Source: Developed by Drs. Rizwan Garcia, Miroslava Saez, Rigo Mccoy and colleagues, with an educational wilfredo from [employer]. Thrive Questionnaire Date Thrive assessed: 05/09/24 I am a: Patient What is your living situation today?: I have a steady place to live Within the past 12 months, did the food you bought not last and you didn't have the money to get more?: Never true Within the past 12 months, did you worry whether your food would run out before you got money to buy more?: Never true Are you currently unemployed and looking for a job?: No THRIVE Score: 0 AUDIT C Alcohol Use Questionnaire (AUDIT-C) 1. How often do you have a drink containing alcohol?: Never 2. How many drinks containing alcohol do you have on a typical day when you are drinking?: 1 or 2 (0) 3. How often do you have six or more drinks on one occasion?: Never Total Score: 0 Score Reviewed/Action Taken: Yes RUBIA-7 AMB Questionnaire RUBIA-7 Date RUBIA - 7 assessed: 05/09/24 Feeling nervous, anxious, or on edge: 0 = Not at all Not being able to stop or control worryin = Not at all Worrying too much about different things: 0 = Not at all Trouble relaxin = Not at all Being so restless that it is hard to sit still: 0 = Not at all Becoming easily annoyed or irritable: 0 = Not at all Feeling afraid as if something awful might happen: 0 = Not at all Total RUBIA-7 score (0-4 normal; 5-9 mild; 10-14 moderate; 15-21 severe): 0 Source: Developed by Drs. Rizwan Garcia, Miroslava Saez, Rigo Mccoy and colleagues, with an educational wilfredo from [employer]. Review of Systems Const Denies chills, Denies headache(s) and Denies weight loss ENT Denies headache(s) Card Denies chest pain, Denies syncope, Denies irregular heart rhythm and Denies dyspnea Resp Denies chest congestion, Denies cough and Denies dyspnea GI Denies abdominal pain, Denies change in stool character, Denies nausea and Denies vomiting Musc Denies deformity and Denies joint swelling Neuro Denies syncope and Denies headache(s) Physical exam (Primary Care) Vital Signs: Last Vital Signs Pulse 55 05/09/24 11:21 BP 106/70 05/09/24 11:21 Pulse Ox 96 05/09/24 11:21 Oxygen Delivery Method Room Air 05/09/24 11:21 BMI result Body Mass Index 37.4 Tobacco/Smoking Status: Tobacco use Status Tobacco use date assessed 05/09/24 05/09/24 11:26 Patient Tobacco Use Status Never used Tobacco 05/09/24 11:26 Tobacco use type Cigarette 05/09/24 11:26 e-Cigarette/Vaping Use Never Used 05/09/24 11:26 PHQ-9: PHQ-9 Score PHQ-9: Total score 2 05/09/24 11:26 Depression Screening Interpretation: Negative Thrive Assessment: Date of Thrive Assessment Date Thrive assessed 05/09/24 05/09/24 11:26 Const General: cooperative, comfortable, no acute distress and alert Neck Neck: Yes no lymphadenopathy Thyroid: Thyroid normal Resp Effort & Inspection: normal respiratory effort Auscultation: clear to auscultation bilaterally Percussion: percussion normal Cardio Jugular venous distension: no JVD Palpation: normal PMI Rate: regular rate Rhythm: regular rhythm Heart sounds: S1 normal heart sound present and S2 normal heart sound present GI Inspection: Yes normal to inspection Palpation (GI): No hepatosplenomegaly present Skin General skin exam: no rashes or lesions noted Extrem General: Yes no clubbing, cyanosis or edema Coding Level of Care Code Est Pt Level 3 (92029) Diagnoses Knee pain M25.569 Assessment & Plan Assessment & Plan (1) Knee pain: Code(s): M25.569 - Pain in unspecified knee Plan: xr Orders: Orders XR knee LT 2V Today M25.569 - Pain in unspecified knee
== END 2024-05-09 11:39 | disposition home or self-care (01) ==
PROVIDERS: PCP Internal Medicine; Visit Provider Internal Medicine
DX: M25.569 Pain in unspecified knee (principal)

== ENCOUNTER 2024-05-09 11:17 | Outpatient (REF) | payer OTHER, SELFPAY ==
--- NOTE | ~2024-05-09 | XR_ITS ---
EXAMINATION: XR KNEE LEFT 3 VIEWS CLINICAL INFORMATION: Pain in unspecified knee M25.569. COMPARISON: AP left knee radiograph dated 01/20/2023. TECHNIQUE: Three views of the left knee. FINDINGS: Liml-me-ghkdwtbb medial compartment joint space narrowing. Small tricompartmental marginal osteophytes. Findings are similar when compared to the prior examination. No acute fracture or dislocation. No concerning lytic or blastic osseous lesion. Moderate joint effusion. No abnormal soft tissue calcification. XR/XR knee LT 2V IMPRESSION: 1. Tricompartmental osteoarthritis, most prominent within the medial compartment, similar when compared to the prior examination. 2. Moderate joint effusion. Electronically signed by: Narinder Mcdaniel MD 07/10/2024 10:42 AM MAY[facility] LAY
== END 2024-05-09 11:18 | disposition home or self-care (01) ==
LOC: HO.XRAY 11:17
PROVIDERS: PCP Internal Medicine; Visit Provider Internal Medicine
DX: M25.562 Pain in left knee (principal)
CPT/HCPCS: 73560; 99212

== ENCOUNTER 2024-06-19 15:42 | Outpatient (AMB) | payer OTHER, SELFPAY ==
--- NOTE | 2024-06-19 15:49 | A.OFFVIS_ITS ---
Intake Visit Reasons: 3m/US/PVR Intake Note: Patient presents for follow up incontinence Urology Medications: Gemtesa Blood Thinner: None PVR: 0ml's Sr. Operations Manager Required: Yes Sr. Operations Manager Name: [id number] Accompanied by: Self / Same As Patient Allergies No Known Allergies [No Known Allergies*] Allergy (Verified 06/19/24 16:14) Medication List - Last Reconciled 06/19/24 by GÉNESIS Newsome albuterol sulfate 90 mcg/actuation (ProAir HFA) 2 puffs inhalation Q4H PRN atorvastatin 10 mg PO DAILY blood pressure monitor As directed duloxetine 30 mg PO DAILY duloxetine 20 mg PO DAILY hydrochlorothiazide 12.5 mg PO DAILY metoprolol succinate ER 25 mg PO DAILY naproxen (Naprosyn) 500 mg PO BID PRN sulindac 200 mg PO BID tizanidine 2 mg PO Q8H PRN trazodone 100 mg PO BEDTIME venlafaxine ER 75 mg PO DAILY vibegron (Gemtesa) 75 mg PO DAILY 30 days HPI Comments Details: Temitope is a pleasant 59 year old Bulgarian speaking female patient of Dr. Irizarry. She has a past medical history of asthma, hyperlipidemia, hypertension, and obesity. She presents to the office today for a follow up of her lower urinary tract symptoms. Of note, patient was seen approximately 3 months ago at which time Myrbetriq was discontinued and patient was started on Gemtesa. In discussion with the patient today she reports to be doing and feeling well. She reports significant improvement in lower urinary tract symptoms with Gemtesa 75mg daily. She currently denies any bothersome urinary issues or concerns. She discusses having decreased her amounts of [place] pads per day in his extremely happy with her current voiding parameters. Previous workup has included a retroperitoneal ultrasound 01/20 showing bilateral kidneys with no calculi, lesions, and or hydronephrosis noted. The bladder is distended and normal. Bilateral ureteral jets are demonstrated. Prevoid bladder volume is 328 mL. Postvoid bladder volume is 44.2 mL. In office urinalysis results reviewed with the patient today. PVR 0 mL. Patient has previously trialed oxybutynin however experience dry mouth and constipation. She has a past medical history of a cystoscopy with hydrodistention for interstitial cystitis with improvement in cystitis symptoms she had been experiencing at that time. When asked she denies nocturia, hematuria, dysuria, foul smelling urine, changes to urinary stream, flank pain, fever, and or chills. Discussed potential causes of mixed urinary incontinence. She otherwise offers no other issues or concerns at this time. [facility] Medical History Right flank pain Burning with urination Obesity Hypertension Asthma Hyperlipidemia Surgical History History of vein stripping History of hysterectomy History of tubal ligation Family History Father Alcoholism Substance use disorder Mother Diabetes Paternal Grandfather CVD (cardiovascular disease) Social History Housing: Apartment Alcohol intake: never Patient Tobacco Use Status: Never used Tobacco Tobacco use type: Cigarette e-Cigarette/Vaping Use: Never Used Second Hand Smoke Exposure: No service: No Current occupational status: disabled Cognitive needs: No Hearing needs: No Vision needs: No Review of Systems Const Reports no additional complaints Eyes Reports no additional complaints ENT Reports no additional complaints Card Reports as per HPI Resp Reports no additional complaints GI Reports no additional complaints Reports as per HPI Musc Reports no additional complaints Neuro Reports no additional complaints Psych Reports no additional complaints Endo Reports no additional complaints Jose Alberto/Lymph Reports no additional complaints Aller/Immun Reports no additional complaints Physical Exam Const General: cooperative, healthy appearing, comfortable, no acute distress, well developed, alert and awake Nutritional Appearance: overweight Orientation/consciousness: patient oriented x3 Limitations: no limitations HEENT Head: Yes normal to inspection, Yes normocephalic and Yes atraumatic Ears: hearing grossly normal bilaterally Eyes General: appearance normal, both eyes and all related structures Neck Neck: Yes normal visual inspection and Yes trachea midline Chest Chest palpation & inspection: normal inspection of the chest Resp Effort & Inspection: normal respiratory effort and able to speak in complete sentences Cardio Rate: regular rate GI Inspection: Yes normal to inspection General: Yes no CVA tenderness Back/Spine/Pelvis Back: no CVA tenderness Skin General skin exam: no rashes or lesions noted Neuro General: patient oriented x3 Extrem General: Yes normal to inspection Psych Appearance: grossly normal and well kempt Mental Status: mental status grossly normal Speech and movement: Normal speech and movement present and Clear speech present Affect: normal affect Attitude: cooperative Thought process: Normal thought process present Thought content: Normal thought content present Insight: Fair insight present (Psych) Judgement: Fair judgement present (Psych) Office Procedures Post Void Residual Post Residual Void Post Void Residual (PVR): 0 13910-Kwnh Void Residual by ultrasound Results AMB Urinalysis, Automated UA Leukoctes 125 Lea/uL Last Edit by Angie Beckford on 06/19/24 16:08 UA Nitrite Last Edit by Angie Beckfordromain on 06/19/24 16:08 UA Urobilinogen 0.2 mg/dL Last Edit by Angie Beckford on 06/19/24 16:08 UA Protein 0 mg/dL Last Edit by Angie Beckford on 06/19/24 16:08 UA pH 6.0 Last Edit by bMenu Analy on 06/19/24 16:08 UA Blood 80 Sy/uL Last Edit by TrendUten Beckfordromain on 06/19/24 16:08 UA Specific [place] 1.025 Last Edit by [email or web address] [email or web address] on 06/19/24 16:08 UA Ketone Last Edit by [email or web address] Beckford on 06/19/24 16:08 UA Bilirubin 0 mg/dL Last Edit by [email or web address] [email or web address] on 06/19/24 16:08 UA Glucose 0 mg/dL Last Edit by bMenu Analyromain on 06/19/24 16:08 Results Reviewed Results Reviewed: Laboratory Last Values Urine pH (Auto) 6.0 06/19/24 16:06 Specific [place] (Auto) 1.025 06/19/24 16:06 Urine Protein (Auto) 0 mg/dL 06/19/24 16:06 Glucose (UA)(Auto) 0 mg/dL 06/19/24 16:06 Urine Blood (Auto) 80 Sy/uL 06/19/24 16:06 Urine Bilirubin (Auto) 0 mg/dL 06/19/24 16:06 Urine Urobilinogen (Auto) 0.2 mg/dL 06/19/24 16:06 Leukocyte Esterase (Auto) 125 Lea/uL 06/19/24 16:06 Date of Service: 03/28/24 EXAMINATION: US RETROPERITONEAL COMPLETE (RENAL) FINDINGS: RIGHT KIDNEY: 11.0 x 4.8 x 4.7 cm (SAG x AP x TRV). No hydronephrosis. No renal calculi. Renal cortical thickness is normal. Limited visualization. LEFT KIDNEY: 11.4 x 5.3 x 4.5 cm (SAG x AP x TRV). No hydronephrosis. No renal calculi. Renal cortical thickness is normal. Limited visualization. BLADDER: Well-distended. Bilateral ureteral jets are demonstrated. Prevoid bladder volume is 225 mL. Postvoid bladder volume is 7.9 mL. IMPRESSION: 1. No hydronephrosis. No renal calculi. Limited visualization. 2. Postvoid bladder volume 7.9 mL. Assessment & Plan Assessment & Plan (1) Microscopic hematuria: Code(s): R31.29 - Other microscopic hematuria Category: Medical (2) Sensation of pressure in bladder area: Code(s): R39.89 - Other symptoms and signs involving the genitourinary system Category: Medical (3) Urinary incontinence, urge: Code(s): N39.41 - Urge incontinence Category: Medical Plan In office urinalysis results reviewed with the patient today; as noted above. PVR 0 mL. Recent retroperitoneal ultrasound results reviewed with the patient today; as noted above. Patient currently denies any bothersome urinary issues or concerns. She reports be happy with current voiding parameters on Gemetesa; will continue; refill provided. Discussed and educated on the importance of weight loss for improvement in lower urinary tract symptoms as well as overall health and well-being. Follow-up in 6 months with PVR; or sooner with any issues, concerns, and or questions. Orders: Orders AMB Urinalysis Automated Today Z13.9 - Encounter for screening, unspecified AMB Post Void Residual by ultrasound Today N39.41 - Urge incontinence Patient Instructions: The patient had an opportunity to ask questions regarding the treatment plan. All questions were answered. Physical exam, labs, and imaging were discussed and reviewed in detail. As well as risks, benefits, and discussion of treatment choices. No major barriers to understanding were identified. The patient expressed understanding and agreement with the above treatment plan. The patient was made aware they should contact our office by phone for worsening of their current condition, the appearance of new symptoms, or with any questions or concerns. Compliance is encouraged with any medications and follow up testing that is ordered. It is a privilege to be allowed the opportunity to participate in? your urological care.? Again, if you have any questions or concerns If you have any questions or concerns please do not hesitate to contact me. The office is [phone]. This note is constructed using voice recognition software. While every effort has been made to ensure accuracy dipper machine operator errors may have been included. Yours sincerely, GÉNESIS Newsome Coding Level of Care Code Est Pt Level 3 (02251) Complex EM visit Add On G2211 Diagnoses Microscopic hematuria R31.29 Sensation of pressure in bladder area R39.89 Urinary incontinence, urge N39.41 CPT Codes Post Residual Void - PVR CPT Code: 28390-Iabc Void Residual by ultrasound ([id number])
== END 2024-06-19 16:23 | disposition home or self-care (01) ==
PROVIDERS: PCP Internal Medicine; Visit Provider Nurse Practitioner Family
DX: R31.29 Other microscopic hematuria (principal); R39.89 Other symptoms and signs involving the genitourinary system; N39.41 Urge incontinence; Z13.9 Encounter for screening, unspecified
CPT/HCPCS: 99213; G2211

== ENCOUNTER → 2024-06-19 15:42 | Outpatient (BNVA) | payer OTHER, SELFPAY | PROVIDERS: PCP Internal Medicine; Visit Provider Nurse Practitioner Family | DX: R31.29 Other microscopic hematuria (principal); N39.41 Urge incontinence; R39.89 Other symptoms and signs involving the genitourinary system | CPT/HCPCS: 51798; 81003; 99212 ==

== ENCOUNTER 2024-07-05 10:22 | Outpatient (AMB) | payer OTHER, SELFPAY ==
--- NOTE | 2024-07-05 10:32 | MHC.PC.OV ---
Vital Signs 07/05/24 10:33 Height 4 ft 11 in Weight 185 lb 4 oz BMI 37.4 BP 130/70 Blood Pressure Location Lt brachial Position Sitting Pulse 52 Pulse Source Pulse Oximeter Pulse Oximetry (%) 97 Oxygen Delivery Method Room Air Intake Visit Reasons: ANNUAL Intake Note: Patient is here today for a physical. Transfer Professor Required: Yes Transfer Professor Language: Faroese Information Interpreted: non-clinical & clinical Sustainability Manager: Not Required per policy Accompanied by: Self / Same As Patient Allergies No Known Allergies [No Known Allergies*] Allergy (Verified 07/05/24 10:33) Medication List - Last Reconciled 07/08/24 by Torey Irizarry MD albuterol sulfate 90 mcg/actuation (ProAir HFA) 2 puffs inhalation Q4H PRN atorvastatin 10 mg PO DAILY blood pressure monitor As directed duloxetine 30 mg PO DAILY duloxetine 20 mg PO DAILY hydrochlorothiazide 12.5 mg PO DAILY metoprolol succinate ER 25 mg PO DAILY naproxen (Naprosyn) 500 mg PO BID PRN sulindac 200 mg PO BID tizanidine 2 mg PO Q8H PRN trazodone 100 mg PO BEDTIME venlafaxine ER 75 mg PO DAILY vibegron (Gemtesa) 75 mg PO DAILY 30 days Tobacco use date assessed: 07/05/24 Dental Screening Dental Screen Date: 05/09/24 HPI ANNUAL HPI Details asthma and hyperlipidemia; compliant [facility] Medical History Right flank pain Burning with urination Obesity Hypertension Asthma Hyperlipidemia Surgical History History of vein stripping History of hysterectomy History of tubal ligation Family History Father Alcoholism Substance use disorder Mother Diabetes Paternal Grandfather CVD (cardiovascular disease) Social History Housing: Apartment Alcohol intake: never Patient Tobacco Use Status: Never used Tobacco Tobacco use type: Cigarette e-Cigarette/Vaping Use: Never Used Second Hand Smoke Exposure: No service: No Current occupational status: disabled Cognitive needs: No Hearing needs: No Vision needs: No Questionnaire PHQ-9 Over the last 2 weeks, how often have you been bothered by any of the following problems? 1. Little interest or pleasure in doing things: several days 2. Feeling down, depressed, or hopeless: several days 3. Trouble falling or staying asleep, or sleeping too much: nearly every day 4. Feeling tired or having little energy: several days 5. Poor appetite or overeating: several days 6. Feeling bad about yourself - or that you are a failure or have let yourself or your family down: not at all 7. Trouble concentrating on things, such as reading the newspaper or watching television: not at all 8. Moving or speaking so slowly that other people could have noticed. Or the opposite - being so fidgety or restless that you have been moving around a lot more than usual: not at all 9. Thoughts that you would be better off or of hurting yourself in some way: not at all Total score: 7 Depression Screening Interpretation: Positive Depression Screening Done: Yes Source: Developed by Drs. Rizwan Garcia, Miroslava Saez, Rigo Mccoy and colleagues, with an educational wilfredo from [employer]. Thrive Questionnaire Date Thrive assessed: 07/05/24 I am a: Patient What is your living situation today?: I choose not to answer this question Within the past 12 months, did the food you bought not last and you didn't have the money to get more?: Never true Within the past 12 months, did you worry whether your food would run out before you got money to buy more?: I choose not to answer this question Do you have trouble paying for medicines?: No Do you have trouble getting transportation to medical appointments?: No Do you have trouble paying your heating and electricity bill?: No Do you have trouble taking care of your child, family member or friend?: No Do you have trouble with day-to-day activities such as bathing, preparing meals, shopping, managing finances, etc.?: No Are you currently unemployed and looking for a job?: No Are you interested in more education?: I choose not to answer this question Please select the resources that you would like help with: Transportation THRIVE Score: 0 RUBIA-7 AMB Questionnaire RUBIA-7 Date RUBIA - 7 assessed: 05/09/24 Source: Developed by Drs. Rizwan Garcia, Miroslava Saez, Rigo Mccoy and colleagues, with an educational wilfredo from [employer]. Review of Systems Const Denies chills, Denies fatigue, Denies headache(s) and Denies weight loss Eyes Denies change in vision, Denies diplopia and Denies eye pain ENT Denies vertigo, Denies dizziness, Denies headache(s) and Denies nasal discharge Card Denies chest pain, Denies rapid heart rate and Denies dyspnea on exertion Resp Denies chest congestion, Denies cough, Denies pain with cough and Denies dyspnea on exertion GI Denies abdominal pain, Denies hematochezia and Denies change in bowel habits Musc Denies myalgias, Denies arthralgias and Denies joint swelling Skin/Breast Denies lesions and Denies unusual bruising Neuro Denies vertigo, Denies dizziness, Denies headache(s) and Denies focal weakness Endo Denies fatigue Physical exam (Primary Care) Vital Signs: Last Vital Signs Pulse 52 07/05/24 10:33 BP 130/70 07/05/24 10:33 Pulse Ox 97 07/05/24 10:33 Oxygen Delivery Method Room Air 07/05/24 10:33 BMI result Body Mass Index 37.4 Tobacco/Smoking Status: Tobacco use Status Tobacco use date assessed 07/05/24 07/05/24 10:37 Patient Tobacco Use Status Never used Tobacco 07/05/24 10:37 Tobacco use type Cigarette 07/05/24 10:37 e-Cigarette/Vaping Use Never Used 07/05/24 10:37 PHQ-9: PHQ-9 Score PHQ-9: Total score 7 07/05/24 10:38 Depression Screening Interpretation: Positive Thrive Assessment: Date of Thrive Assessment Date Thrive assessed 07/05/24 07/05/24 10:37 Const General: cooperative, healthy appearing and no acute distress Orientation/consciousness: oriented to person, oriented to place and oriented to time HENAL Head: Yes normal to inspection, Yes normocephalic and Yes atraumatic Mouth: Normal oral and palatal mucosa present and tongue normal Throat: Yes posterior oropharynx normal and Yes uvula midline Eyes General: appearance normal, both eyes and all related structures Neck Neck: Yes normal visual inspection, Yes full ROM and Yes no lymphadenopathy Thyroid: Thyroid normal Carotids: normal carotid upstroke Chest Chest palpation & inspection: normal inspection of the chest Resp Effort & Inspection: normal respiratory effort and able to speak in complete sentences Auscultation: clear to auscultation bilaterally Cardio Jugular venous distension: no JVD Palpation: normal PMI Rate: regular rate Rhythm: regular rhythm Heart sounds: S1 normal heart sound present and S2 normal heart sound present GI Inspection: Yes normal to inspection Palpation (GI): Soft to palpation and No hepatosplenomegaly present Auscultation: normal bowel sounds General: Yes no CVA tenderness Back/Spine/Pelvis Back: no CVA tenderness Skin General skin exam: no rashes or lesions noted Neuro General: oriented to person, oriented to place and oriented to time Extrem General: Yes normal to inspection and Yes full ROM Coding Level of Care Code Est Pt Prev Care 40-64y(68134) Diagnoses Physical exam Z00.00 Asthma J45.909 Hyperlipidemia E78.5 Assessment & Plan Assessment & Plan (1) Physical exam: Code(s): Z00.00 - Encounter for general adult medical examination without abnormal findings Category: Medical Plan: stable; do labs (2) Asthma: Comment: stable; cont meds Code(s): J45.909 - Unspecified asthma, uncomplicated Category: Medical Plan: stable; same rx (3) Hyperlipidemia: Code(s): E78.5 - Hyperlipidemia, unspecified Category: Medical Plan: stable; same rx
[2024-07-05 10:33] VITALS: BP 130/70; PULSE 52; O2SAT 97; BMI 37.4
--- OUTSIDE RECORDS SUMMARY | 2024-07-10 07:21 | XMS_ITS | Continuity of Care Document ---
Author Organization [facility] Address [address] [place] [address] [address] [place] [address] Phone Care Team Providers Care Wine And Spirits Clerk Name Role Phone Home CARLIN FACS RVT [...] Providers Copied on Encounter [facility], [address] [place] [address] [address], [place], [id number], [place] tel:[phone] [facility] No Information Home CARLIN FACS NUZHAT Rojas. [address] [facility] [address], [place], [address], [place]. tel:[phone] Referring Provider: Torey Irizarry MD, [address] [facility] [address], [place], [address]. tel:[phone] Office/Outpt E&M Established 15 Mins [facility], [address] [place] [address] Dr [address], [place], [id number], [place] tel:[phone] [facility] Venous insufficiency (chronic) (peripheral) 3 Home CARLIN FACS Savita Rojas. [address] [facility], [address], [place], [address], [place]. tel:[phone] Referring Provider: Torey Irizarry MD, [address] [facility] SUITE [facility], [place], [address]. tel:[phone] [place] [facility], [address] [place] [address] [address], [place], [id number], [place] tel:[phone] [facility] Venous insufficiency (chronic) (peripheral)Leslie n in right legCompression of vein 3 Home CARLIN FACS Savita Rojas. [address] [facility], [address], [place], [address], [place]. [phone] Referring Provider: Torey Irizarry MD, [address] [facility] SUITE [facility], [place], [address]. tel:[phone] Office/Outpt E&M Established 15 [facility], [address] [place] [address] [address], [place], [id number], [place] tel:[phone] [facility] Venous insufficiency (chronic) (peripheral)Leslie n in right legBody mass index (BMI) 38.0-38.9, adult Mar-3 3 Home CARLIN FACS Savita Rojas. [address] [facility], [address], [place], [address], [place]. tel:[phone] Referring Provider: Torey Irizarry MD, [address] [facility] SUITE [facility], [place], [address]. tel:[phone] Family History Family Member Type Diagnosis Age At Onset No Information Payers Payer name Insurance type Covered democrat ID Jessica hawkins(s) [facility] [id number] Social History Type Description Quantity Date Captured [...]
== END 2024-07-05 10:45 | disposition home or self-care (01) ==
PROVIDERS: PCP Internal Medicine; Visit Provider Internal Medicine
DX: Z00.00 Encounter for general adult medical examination without abnormal findings (principal); J45.909 Unspecified asthma, uncomplicated; E78.5 Hyperlipidemia, unspecified

== ENCOUNTER → 2024-07-05 10:22 | Outpatient (BNVA) | payer OTHER, SELFPAY | PROVIDERS: PCP Internal Medicine; Visit Provider Internal Medicine | DX: Z00.00 Encounter for general adult medical examination without abnormal findings (principal); J45.909 Unspecified asthma, uncomplicated; E78.5 Hyperlipidemia, unspecified | CPT/HCPCS: 96127; 99396 ==

== ENCOUNTER 2024-08-29 09:48 | Outpatient (REF) | payer OTHER, SELFPAY ==
[2024-08-29 10:04] LABS: MANUAL DIFF FLAG NO
[2024-08-29 10:44] LABS: Basophils Percent Auto 0.7 % (0-2); Eosinophils Absolute Auto 0.2 X10*3/uL (0.0-0.4); Eosinophils Percent Auto 3.2 % (0-4); Hematocrit 38.8 % (37.0-47.0); Hemoglobin 12.9 g/dl (12.0-16.0); Imm Gran Abs Auto 0.01 X10*3/uL (0.00-0.03); Imm Gran Pct Auto 0.2 % (0.0-0.4); Lymphocytes Absolute Auto 1.6 X10*3/uL (1.2-4.9); Mean Corpuscular HGB Conc 33.2 g/dl (31.0-35.0); Mean Corpuscular Hemoglobin 31.3 pg (27.0-33.0); Mean Corpuscular Volume 94.2 fL (80.0-98.0); Monocytes Absolute Auto 0.4 X10*3/uL (0.1-1.2); Monocytes Percent Auto 7.5 % (2-11); Neutrophils Absolute Auto 3.1 x10*3/uL (2.0-8.3); Neutrophils Percent Auto 58.4 % (45-73); Platelet Count 234 X10*3/uL (160-400); Red Blood Count 4.12 X10*6/uL (4.20-5.50); Red Cell Distribution Width 12.7 % (11.0-16.0); White Blood Count 5.3 X10*3/uL (4.8-10.8)
[2024-08-29 11:28] LABS: Alanine Aminotransferase 41 U/L (0-31); Albumin Level 4.2 g/dL (3.5-5.0); Alkaline Phosphatase 98 U/L (39-117); Anion Gap 10 (12-20); Aspartate Amino Transferase 31 U/L (5-31); Blood Urea Nitrogen 16 mg/dL (9-16); Calcium 9.3 mg/dL (8.4-10.2); Carbon Dioxide 29 mmol/L (22-29); Chloride 105 mmol/L (96-108); Cholesterol 151 mg/dL (<200); Estimated Glomerular Filt Rate > 60; Glucose Fasting 87 mg/dL (60-99); HDL Cholesterol 50 mg/dL (>40); LDL Cholesterol Calculated 90 mg/dL (<100); Potassium 4.1 mmol/L (3.3-5.1); Sodium 140 mmol/L (135-145); Total Protein 7.9 g/dL (6.5-8.0); Triglycerides 58 mg/dL (<150)
[2024-08-29 11:33] LABS: Bilirubin Total 0.4 mg/dL (0.0-1.0)
[2024-08-29 11:44] LABS: Thyroid Stimulating Hormone 1.17 uIU/mL (0.32-4.0)
--- OUTSIDE RECORDS SUMMARY | 2024-08-29 12:52 | XMS_ITS | Patient Health Record ---
Author Organization [facility] Address [address] [place] [address] Care Team Providers Care Air Analysis Technician Name Role Phone Juan C CARLIN, Torey Primary Care Provider Ezequiela Loni Stallings Unavailable [phone] Allergies No Known Allergies Reason For Referral No Information Medications Medication SIG (Take, Route, Frequency, Duration) Notes Start Date End Date Status tiZANidine HCl 2 MG 1 tablet as needed Orally Three times a day Active Venlafaxine HCl ER 150 MG 1 capsule with food Orally Once a day for 30 day(s) Active Metoprolol Succinate 25 MG 1 capsule Ora lly Once a day for 30 day(s) Active Atorvastatin Calcium 10 MG 1 tablet Oral ly Once a day for 30 day(s) Active Ciclopirox Olamine 0.77 % 1 application Externally Once a day for 30 days 09/01/2022 Active hydroCHLOROthiazide 12.5 MG 1 capsule in the morning Orally Once a day for 30 day(s) Active Social History Tobacco Use: Social History Observation Description Date Details (start date - stop date) Never Smoker NA - NA Tobacco Use/Smoking Question Answer Notes Are you a: nonsmoker Alcohol Screen Question Answer Notes Did you have a drink containing alcohol in the p ast year? No Points 0 Interpretation Negative Tobacco use other than smoking: Question Answer Notes Are you an other tobacco user? No Problems No Known Problems Plan Of Treatment No Information Insurance Providers Payer Name Payer Address Payer Phone Subscriber Number Group Number Insured Name Patient Relationship to Insured Coverage Start Date Coverage End Date [facility] SCO Claims [address] [place] [id number] Temitope Tom Self - patient is the insured Medical (General) History Medical History History ICD Code Back,Hip,and Knee pain High blood pressure Surgical History Surgery Date(Month/Year)
--- OUTSIDE RECORDS SUMMARY | 2024-08-29 12:52 | XMS_ITS | Continuity of Care Document ---
Author Organization [facility] Address [address] [place] [address] Dr [address] [place] [address] Phone Care Team Providers Care Tool Machine Setup Operator Name Role Phone Home CARLIN FACS RVT [...] Providers Copied on Encounter [facility], [address] [place] [address] [address], [place], [id number], [place] tel:[phone] [facility] No Information Home CARLIN FACS NUZHAT Rojas. [address] [facility] [address], [place], [address], [place]. tel:[phone] Referring Provider: Torey Irizarry MD, [address] [facility] [address], [place], [address]. tel:[phone] Office/Outpt E&M Established 15 Mins [facility], [address] [place] [address] Dr [address], [place], [id number], [place] tel:[phone] [place] - [place] Venous insufficiency (chronic) (peripheral) 3 Home CARLIN FACS Savita Rojas. [address] [facility], [address], [place], [address], [place]. tel:[phone] Referring Provider: Torey Irizarry MD, [address] [facility] SUITE [facility], [place], [address]. tel:[phone] [place] [facility], [address] [place] [address] Dr [address], [place], [id number], [place] tel:[phone] [place] Venous insufficiency (chronic) (peripheral)Leslie n in right legCompression of vein 3 Home CARLIN FACS Savita Rojas. [address] [facility], [address], [place], [address], [place]. [phone] Referring Provider: Torey Irizarry MD, [address] [facility] SUITE [facility], [place], [address]. tel:[phone] Office/Outpt E&M Established 15 [facility], [address] [place] [address] [address], [place], [id number], [place] tel:[phone] [place] Venous insufficiency (chronic) (peripheral)Leslie n in right legBody mass index (BMI) 38.0-38.9, adult Mar-3 3 Home CARLIN FACS Savita Rojas. [address] [facility], [address], [place], [address], [place]. tel:[phone] Referring Provider: Torey Irizarry MD, [address] [facility] SUITE [facility], [place], [address]. tel:[phone] Family History Family Member Type Diagnosis Age At Onset No Information Payers Payer name Insurance type Covered libertarian ID Jessica hawkins(s) [facility] [id number] Social History Type Description Quantity Date Captured [...]
== END 2024-08-29 09:49 | disposition home or self-care (01) ==
LOC: HO.LAB 09:48
PROVIDERS: PCP Internal Medicine; Visit Provider Internal Medicine
DX: Z13.0 Encounter for screening for diseases of the blood and blood-forming organs and certain disorders involving the immune mechanism (principal); Z13.9 Encounter for screening, unspecified; Z13.29 Encounter for screening for other suspected endocrine disorder; Z13.220 Encounter for screening for lipoid disorders
CPT/HCPCS: 36415; 80053; 80061; 84443; 85025

== ENCOUNTER 2024-10-14 12:28 | Outpatient (AMB) | payer OTHER, SELFPAY ==
[2024-10-14 13:02] VITALS: BP 114/62; PULSE 54; BMI 37.6
--- NOTE | 2024-10-14 13:02 | MHC.OFFVIS ---
Vital Signs 10/14/24 13:02 Height 4 ft 11 in Weight 186 lb 1.122 oz BMI 37.6 BP 114/62 Blood Pressure Location Lt brachial Position Sitting Pulse 54 Pulse Source Pulse Oximeter Intake Visit Reasons: 6m follow up An/Sqq 89(V)15 Sonar System Journeyman Required: Yes An/Sqq 89(V)15 Sonar System Journeyman Language: Clinical Laboratory Medical Director Name: voice schmidt [id number] Allergies No Known Allergies [No Known Allergies*] Allergy (Verified 10/14/24 13:05) Medication List - Last Reconciled 10/14/24 by Pastora Amaya NP-C albuterol sulfate 90 mcg/actuation (ProAir HFA) 2 puffs inhalation Q4H PRN atorvastatin 10 mg PO DAILY blood pressure monitor As directed duloxetine 30 mg PO DAILY duloxetine 20 mg PO DAILY hydrochlorothiazide 12.5 mg PO DAILY metoprolol succinate ER 25 mg PO DAILY sulindac 200 mg PO BID trazodone 100 mg PO BEDTIME triamcinolone acetonide 0.5% 1 appl topical TID vibegron (Gemtesa) 75 mg PO DAILY 30 days HPI HPI 6m follow up: Details: Temitope is a 59-year-old female past medical history of hypertension, hyperlipidemia, pericarditis, heart palpitations who presents for follow-up. Today she reports that she has been doing good since her last visit in March. She has not had any concerning chest discomfort or heart palpitations. No shortness of breath, PND, orthopnea or edema. No lightheadedness, presyncope, syncope. She has good activity tolerance. She is compliant with her medications. Certified manager transport used. [facility] Medical History Right flank pain Burning with urination Obesity Hypertension Asthma Hyperlipidemia Surgical History History of vein stripping History of hysterectomy History of tubal ligation Family History Father Alcoholism Substance use disorder Mother Diabetes Paternal Grandfather CVD (cardiovascular disease) Social History Housing: Apartment Alcohol intake: never Patient Tobacco Use Status: Never used Tobacco Tobacco use type: Cigarette e-Cigarette/Vaping Use: Never Used Second Hand Smoke Exposure: No service: No Current occupational status: disabled Cognitive needs: No Hearing needs: No Vision needs: No Review of Systems Const All systems reviewed & are unremarkable except as noted in HPI and below ENT Denies dizziness Card Denies chest pain, Denies chest pain at rest, Denies chest pain with activity, Denies rapid heart rate, Denies pedal edema, Denies edema, Denies leg edema, Denies lightheadedness, Denies palpitations, Denies dyspnea, Denies dyspnea on exertion and Denies orthopnea Resp Denies cough, Denies dyspnea and Denies dyspnea on exertion GI Denies hematochezia and Denies change in stool character Musc Denies abnormal gait, Denies limited range of motion, Denies muscle cramps, Denies muscle weakness, Denies numbness, Denies radiating pain into limb, Denies stiffness and Denies tingling Neuro Denies abnormal gait, Denies dizziness, Denies numbness and Denies tingling Endo Denies palpitations Physical Exam Vital Signs: Last Vital Signs Pulse 54 10/14/24 13:02 BP 114/62 10/14/24 13:02 BMI result Body Mass Index 37.6 Const General: cooperative, healthy appearing, comfortable and no acute distress Orientation/consciousness: patient oriented x3 Neck Neck: Yes normal visual inspection and Yes no JVD Resp Effort & Inspection: normal respiratory effort Auscultation: clear to auscultation bilaterally, no crackles, no rales, no rhonchi and no wheezes Cardio Rate: regular rate Rhythm: regular rhythm Heart sounds: S1 normal heart sound present, S2 normal heart sound present, no murmurs and no rubs Neuro General: patient oriented x3 Extrem General: Yes normal to inspection, No no pedal edema and No calf tenderness Psych Appearance: grossly normal Mental Status: mental status grossly normal Speech and movement: Normal speech and movement present Assessment & Plan Assessment & Plan (1) Palpitations: Code(s): R00.2 - Palpitations Category: Medical Plan: Prior reports of brief heart palpitations. Holter monitor done 07/19/2022 for 5 days showing sinus rhythm with average heart rate 63, rare PVCs, no pauses or AV blocks. Echocardiogram done on 10/15/2022 showed EF 57%, no valve abnormalities no regional wall motion abnormality. She was likely feeling extrasystoles/PVCs which are benign in patient with normal EF. Currently asymptomatic. Continue metoprolol XL 25 mg daily. Reviewed reduction of caffeinated beverages, getting adequate rest, maintain good hydration and stay physically active. Cardiology follow-up p.r.n.. Refills for metoprolol can be done by her PCP. (2) Sinus bradycardia: Code(s): R00.1 - Bradycardia, unspecified Category: Medical Plan: Asymptomatic sinus bradycardia. She is on low-dose metoprolol which she can continue. (3) S/P cardiac catheterization: Comment: 11/03/2021 showing normal coronary arteries Code(s): Z98.890 - Other specified postprocedural states Category: Surgical Plan: Cardiac catheterization from 10/2021 showed normal coronaries. (4) Hypertension: Code(s): I10 - Essential (primary) hypertension Category: Medical Qualifiers: Hypertension type: primary hypertension Qualified Code(s): I10 - Essential (primary) hypertension Plan: Well controlled at this time. No medication changes made. Continue metoprolol, hydrochlorothiazide. Plan Time spent on chart review, documentation, interview and assessment Coding Level of Care Code Est Pt Level 3 (70047) Complex EM visit Add On G2211 Diagnoses Palpitations R00.2 Sinus bradycardia R00.1 S/P cardiac catheterization Z98.890 Primary hypertension I10 Hypertension type: primary hypertension Time Spent (min) 24
--- OUTSIDE RECORDS SUMMARY | 2024-10-14 14:33 | XMS_ITS | Patient Health Record ---
Author Organization [facility] Address [address] [place] [address] Care Team Providers Care Wrap Yarn Sorter Name Role Phone Juan C CARLIN, Torey Primary Care Provider Ezequiela Loni Stallings Unavailable [phone] Allergies No Known Allergies Reason For Referral [...] Insured Coverage Start Date Coverage End Date [facility] SCO Claims [address] [place] [address] [phone] [id number] Temitope Tom Self - patient is the insured Medical (General) History Medical History History ICD Code Back,Hip,and Knee pain High blood pressure Surgical History Surgery Date(Month/Year)
== END 2024-10-14 13:31 | disposition home or self-care (01) ==
LOC: HO.HCS 12:29
PROVIDERS: PCP Internal Medicine; Visit Provider Nurse Practitioner Family
DX: R00.2 Palpitations (principal); R00.1 Bradycardia, unspecified; Z98.890 Other specified postprocedural states; I10 Essential (primary) hypertension
CPT/HCPCS: 99213; G2211

== ENCOUNTER → 2024-10-14 12:28 | Outpatient (BNVA) | payer OTHER, SELFPAY | PROVIDERS: PCP Internal Medicine; Visit Provider Nurse Practitioner Family | DX: R00.2 Palpitations (principal); R00.1 Bradycardia, unspecified; I10 Essential (primary) hypertension; E78.5 Hyperlipidemia, unspecified; Z98.890 Other specified postprocedural states | CPT/HCPCS: 99212 ==

== ENCOUNTER 2024-12-17 10:03 | Outpatient (REF) | payer OTHER, SELFPAY ==
[2024-12-17 16:13] LABS: Urine Cytology See Pathology rpt
== END 2024-12-17 10:04 | disposition home or self-care (01) ==
LOC: HO.LAB 10:03
PROVIDERS: PCP Internal Medicine; Visit Provider Nurse Practitioner Family
DX: R31.29 Other microscopic hematuria (principal); R39.89 Other symptoms and signs involving the genitourinary system; N39.41 Urge incontinence; Z13.9 Encounter for screening, unspecified
CPT/HCPCS: 51798; 81003; 88112; 99212

== ENCOUNTER 2024-12-17 10:03 | Outpatient (AMB) | payer OTHER, SELFPAY ==
--- NOTE | 2024-12-17 10:11 | A.OFFVIS_ITS ---
Intake Visit Reasons: 6M PVR Intake Note: Patient presents for follow up incontinence Urology Medications: Gemtesa Blood Thinner: None PVR: 0ml's Ad Compositor Required: Yes Ad Compositor Name: Tamy Medina Accompanied by: Self / Same As Patient Allergies No Known Allergies [No Known Allergies*] Allergy (Verified 12/17/24 10:51) Medication List - Last Reconciled 12/17/24 by GÉNESIS Newsome albuterol sulfate 90 mcg/actuation (ProAir HFA) 2 puffs inhalation Q4H PRN atorvastatin 10 mg PO DAILY blood pressure monitor As directed duloxetine 30 mg PO DAILY duloxetine 20 mg PO DAILY hydrochlorothiazide 12.5 mg PO DAILY metoprolol succinate ER 25 mg PO DAILY sulindac 200 mg PO BID trazodone 100 mg PO BEDTIME triamcinolone acetonide 0.5% 1 appl topical TID vibegron (Gemtesa) 75 mg PO DAILY 30 days HPI Comments Details: Temitope is a pleasant 59 year old Burmese speaking female patient of Dr. Irizarry. She has a past medical history of asthma, hyperlipidemia, hypertension, and obesity. She presents to the office today for a follow up of her lower urinary tract symptoms. In discussion with the patient today she reports to be doing and feeling well. She denies having had any bothersome urinary issues or concerns since her last office visit here approximately 6 months ago. She reports compliance with Gemtesa as prescribed in discusses how helpful this has been in lower urinary tract symptoms she had been experiencing. In office urinalysis results reviewed with the patient today. PVR 0 mL. She currently denies any bothersome urinary issues or concerns. She discusses having decreased her amounts of [place] pads per day and is extremely happy with her current voiding parameters. Previous workup has included a retroperitoneal ultrasound 01/20 showing bilateral kidneys with no calculi, lesions, and or hydr onephrosis noted. The bladder is distended and normal. Bilateral ureteral jets are demonstrated. Prevoid bladder volume is 328 mL. Postvoid bladder volume is 44.2 mL. Patient has previously trialed oxybutynin however experience dry mouth and constipation as well as Myrbetriq with no improvement in lower urinary tract symptoms. She has a past medical history of a cystoscopy with hydrodistention for interstitial cystitis with improvement in cystitis symptoms she had been experiencing at that time. When asked she denies nocturia, hematuria, dysuria, foul smelling urine, changes to urinary stream, flank pain, fever, and or chills. She otherwise offers no other issues or concerns at this time. [facility] Medical History Right flank pain Burning with urination Obesity Hypertension Asthma Hyperlipidemia Surgical History History of vein stripping History of hysterectomy History of tubal ligation Family History Father Alcoholism Substance use disorder Mother Diabetes Paternal Grandfather CVD (cardiovascular disease) Social History Housing: Apartment Alcohol intake: never Patient Tobacco Use Status: Never used Tobacco Tobacco use type: Cigarette e-Cigarette/Vaping Use: Never Used Second Hand Smoke Exposure: No service: No Current occupational status: disabled Cognitive needs: No Hearing needs: No Vision needs: No Review of Systems Const Reports no additional complaints Eyes Reports no additional complaints ENT Reports no additional complaints Card Reports as per HPI Resp Reports no additional complaints GI Reports no additional complaints Reports as per HPI Musc Reports no additional complaints Neuro Reports no additional complaints Psych Reports no additional complaints Endo Reports no additional complaints Jose Alberto/Lymph Reports no additional complaints Aller/Immun Reports no additional complaints Physical Exam Const General: cooperative, healthy appearing, comfortable, no acute distress, well developed, alert and awake Nutritional Appearance: overweight Orientation/consciousness: patient oriented x3 Limitations: no limitations HEENT Head: Yes normal to inspection, Yes normocephalic and Yes atraumatic Ears: hearing grossly normal bilaterally Eyes General: appearance normal, both eyes and all related structures Neck Neck: Yes normal visual inspection and Yes trachea midline Chest Chest palpation & inspection: normal inspection of the chest Resp Effort & Inspection: normal respiratory effort and able to speak in complete sentences Cardio Rate: regular rate GI Inspection: Yes normal to inspection General: Yes no CVA tenderness Back/Spine/Pelvis Back: no CVA tenderness Skin General skin exam: no rashes or lesions noted Neuro General: patient oriented x3 Extrem General: Yes normal to inspection Psych Appearance: grossly normal and well kempt Mental Status: mental status grossly normal Speech and movement: Normal speech and movement present and Clear speech present Affect: normal affect Attitude: cooperative Thought process: Normal thought process present Thought content: Normal thought content present Insight: Fair insight present (Psych) Judgement: Fair judgement present (Psych) Office Procedures Post Void Residual Post Residual Void Post Void Residual (PVR): 0 [id number] Void Residual by ultrasound Results AMB Urinalysis, Automated UA Leukoctes 0 Lea/uL Last Edit by Angie Beckford on 12/17/24 10:47 UA Nitrite Negative Last Edit by [employer] Analy on 12/17/24 10:47 UA Urobilinogen 0.2 mg/dL Last Edit by Angie Beckford on 12/17/24 10:47 UA Protein 0 mg/dL Last Edit by Kabongo on 12/17/24 10:47 UA pH 6.0 Last Edit by [employer] Analy on 12/17/24 10:47 UA Blood 25 Sy/uL Last Edit by TuneWikiten Beckford on 12/17/24 10:47 UA Specific [place] 1.015 Last Edit by Kabongo on 12/17/24 10:47 UA Ketone Last Edit by [employer] Analy on 12/17/24 10:47 UA Bilirubin 0 mg/dL Last Edit by Kabongo on 12/17/24 10:47 UA Glucose 0 mg/dL Last Edit by Kabongo on 12/17/24 10:47 Results Reviewed Results Reviewed: Laboratory Last Values Urine pH (Auto) 6.0 12/17/24 10:18 Specific [place] (Auto) 1.015 12/17/24 10:18 Urine Protein (Auto) 0 mg/dL 12/17/24 10:18 Glucose (UA)(Auto) 0 mg/dL 12/17/24 10:18 Urine Blood (Auto) 25 Sy/uL 12/17/24 10:18 Urine Nitrite (Auto) Negative 12/17/24 10:18 Urine Bilirubin (Auto) 0 mg/dL 12/17/24 10:18 Urine Urobilinogen (Auto) 0.2 mg/dL 12/17/24 10:18 Leukocyte Esterase (Auto) 0 Lea/uL 12/17/24 10:18 Assessment & Plan Assessment & Plan (1) Microscopic hematuria: Code(s): R31.29 - Other microscopic hematuria Category: Medical (2) Sensation of pressure in bladder area: Code(s): R39.89 - Other symptoms and signs involving the genitourinary system Category: Medical (3) Urinary incontinence, urge: Code(s): N39.41 - Urge incontinence Category: Medical Plan In office urinalysis results reviewed with the patient today; as noted above will send for urine cytology. She currently denies any bothersome urinary issues or concerns. She reports be happy with current voiding parameters on Gemtesa 75 mg daily; will continue. PVR 0 mL. We discussed bladder triggers and irritants. Will continue with surveillance monitoring. Follow-up in 1 year with PVR; or sooner with any issues, concerns, and or questions. Orders: Orders Urine Cytology Today R31.29 - Other microscopic hematuria AMB Urinalysis Automated Today Z13.9 - Encounter for screening, unspecified AMB Post Void Residual by ultrasound Today N39.41 - Urge incontinence Patient Instructions: The patient had an opportunity to ask questions regarding the treatment plan. All questions were answered. Physical exam, labs, and imaging were discussed and reviewed in detail. As well as risks, benefits, and discussion of treatment choices. No major barriers to understanding were identified. The patient expressed understanding and agreement with the above treatment plan. The patient was made aware they should contact our office by phone for worsening of their current condition, the appearance of new symptoms, or with any questions or concerns. Compliance is encouraged with any medications and follow up testing that is ordered. It is a privilege to be allowed the opportunity to participate in? your urological care.? Again, if you have any questions or concerns If you have any questions or concerns please do not hesitate to contact me. The office is [phone]. This note is constructed using voice recognition software. While every effort has been made to ensure accuracy air brush decorator errors may have been included. Yours sincerely, GÉNESIS Newsome Coding Level of Care Code Est Pt Level 3 (55487) Complex EM visit Add On G2211 Diagnoses Microscopic hematuria R31.29 Sensation of pressure in bladder area R39.89 Urinary incontinence, urge N39.41 CPT Codes Post Residual Void - PVR CPT Code: 57387-Uepz Void Residual by ultrasound ([id number])
--- OUTSIDE RECORDS SUMMARY | 2024-12-17 11:17 | XMS_ITS | Patient Health Record ---
Author Organization [facility] Address [address] [place] [address] Care Team Providers Care Diploma Pharmacy Technician Name Role Phone Juan C CARLIN, Torey Primary Care Provider Ezequiela Loni Stallings Unavailable [phone] Allergies No Known Allergies Reason For Referral [...] Insured Coverage Start Date Coverage End Date [facility] SCO Claims [address] [place] [id number] [phone] [id number] Temitope Tom Self - patient is the insured Medical (General) History Medical History History ICD Code Back,Hip,and Knee pain High blood pressure Surgical History Surgery Date(Month/Year)
== END 2024-12-17 10:42 | disposition home or self-care (01) ==
LOC: HO.HUSH 10:04
PROVIDERS: PCP Internal Medicine; Visit Provider Nurse Practitioner Family
DX: R31.29 Other microscopic hematuria (principal); R39.89 Other symptoms and signs involving the genitourinary system; N39.41 Urge incontinence; Z13.9 Encounter for screening, unspecified
CPT/HCPCS: 99213; G2211

== ENCOUNTER 2025-01-09 11:47 | Outpatient (REF) | payer OTHER, SELFPAY ==
--- NOTE | ~2025-01-09 | XR_ITS ---
CLINICAL HISTORY: M54.2 - Cervicalgia 3 views cervical spine Comparison: None Findings: The usual cervical lordosis is maintained. Mild grade 1 degenerative anterolisthesis of C5 on C6 and C6 on C7. Vertebral body heights are maintained. Multilevel cervical discogenic degenerative disease and facet osteoarthritis which are most conspicuous within the mid and lower cervical spine. Uncovertebral osteoarthritis is most conspicuous at C3-C4. Prevertebral soft tissues are not abnormally thickened. IMPRESSION: No acute findings. Multilevel degenerative changes. This document has been electronically signed by: Fred Ramesh DO on 01/10/2025 13:01:07
--- NOTE | ~2025-01-09 | XR_ITS ---
CLINICAL HISTORY: M25.512 - Pain in left shoulder Three view left shoulder Comparison: None Findings: No fracture or dislocation. Mild acromioclavicular osteoarthritis. The glenohumeral joint is maintained. Upper thoracic levocurvature and multilevel spinal degenerative changes. IMPRESSION: 1. No acute findings. This document has been electronically signed by: Fred Ramesh DO on 01/10/2025 12:52:36
[2025-01-09 14:29] LABS: Influenza A PCR NEGATIVE (Negative); Influenza B PCR NEGATIVE (Negative); Resp Syncy Virus RNA Qual PCR NEGATIVE (Negative); SARS COV2 PCR INHOUSE NEGATIVE (Negative)
== END 2025-01-09 11:48 | disposition home or self-care (01) ==
LOC: HO.XRAY 11:47
PROVIDERS: PCP Internal Medicine; Visit Provider Internal Medicine
DX: J06.9 Acute upper respiratory infection, unspecified (principal); M25.512 Pain in left shoulder; M54.2 Cervicalgia; I10 Essential (primary) hypertension; F33.0 Major depressive disorder, recurrent, mild; R09.89 Other specified symptoms and signs involving the circulatory and respiratory systems
CPT/HCPCS: 0241U; 72040; 73030; 96127; 99212

== ENCOUNTER 2025-01-09 11:47 | Outpatient (AMB) | payer OTHER, SELFPAY ==
--- NOTE | 2025-01-09 12:19 | A.OFFPC_ITS ---
Vital Signs 01/09/25 12:21 Height 4 ft 11 in Weight 183 lb BMI 37.0 BP 130/80 Blood Pressure Location Lt brachial Position Sitting Intake Visit Reasons: NENA from Dr. Irizarry Lpn Instructor Required: No Accompanied by: Self / Same As Patient Allergies No Known Allergies [No Known Allergies*] Allergy (Verified 01/09/25 12:35) Medication List - Last Reconciled 01/09/25 by Tena Carrillo MD albuterol sulfate 90 mcg/actuation (ProAir HFA) 2 puffs inhalation Q4H PRN atorvastatin 10 mg PO DAILY blood pressure monitor As directed duloxetine 30 mg PO DAILY hydrochlorothiazide 12.5 mg PO DAILY metoprolol succinate ER 25 mg PO DAILY sulindac 200 mg PO BID terbinafine HCl 250 mg PO DAILY trazodone 100 mg PO BEDTIME vibegron (Gemtesa) 75 mg PO DAILY 90 days Tobacco use date assessed: 01/09/25 Dental Screening Dental Screen Date: 01/09/25 Did you have a dental visit in the last 12 months?: Yes Did you have a dental problem in the last 6 months where you did not have access to dental care?: No Was dental information given to patient?: Patient has dentist HPI HPI Comments History of Present Illness Details The patient is a 59-year-old female presenting for a wellness visit and evaluation of upper respiratory symptoms and shoulder pain. The patient has a history of hypertension managed with chlorothiazide and metoprolol. She also has a history of depression, currently managed with duloxetine, though her symptoms are only partially controlled. Her PHQ-9 score is 5, indicating mild depression. The patient underwent a hysterectomy in 2013, including removal of the ovaries and uterus. She denies any history of smoking or alcohol use. Recently, the patient developed upper respiratory symptoms starting on Monday, including sore throat and chills, which have persisted despite symptomatic treatment. She has not been exposed to anyone with similar symptoms and has not yet been tested for COVID-19, influenza, or RSV. The patient also reports shoulder pain that extends from the neck and causes discomfort with movement. She is able to move the shoulder but experiences pain, and a cervical and shoulder X-ray has been planned. [facility] Medical History (Updated 01/09/25 @ 12:47 by Tena Carrillo MD) Right flank pain Burning with urination Obesity Hypertension Asthma Hyperlipidemia Surgical History History of vein stripping History of hysterectomy History of tubal ligation Family History Father Alcoholism Substance use disorder Mother Diabetes Paternal Grandfather CVD (cardiovascular disease) Social History Housing: Apartment Alcohol intake: never Patient Tobacco Use Status: Never used Tobacco e-Cigarette/Vaping Use: Never Used Second Hand Smoke Exposure: No service: No Current occupational status: disabled Cognitive needs: No Hearing needs: No Vision needs: No Questionnaire PHQ-9 Over the last 2 weeks, how often have you been bothered by any of the following problems? 1. Little interest or pleasure in doing things: several days 2. Feeling down, depressed, or hopeless: several days 3. Trouble falling or staying asleep, or sleeping too much: several days 4. Feeling tired or having little energy: several days 5. Poor appetite or overeating: not at all 6. Feeling bad about yourself - or that you are a failure or have let yourself or your family down: not at all 7. Trouble concentrating on things, such as reading the newspaper or watching television: not at all 8. Moving or speaking so slowly that other people could have noticed. Or the opposite - being so fidgety or restless that you have been moving around a lot more than usual: several days 9. Thoughts that you would be better off or of hurting yourself in some way: not at all Total score: 5 Depression Screening Interpretation: Positive Depression Screening Follow-up: Existing condition, In treatment, Community Mental Health Worker F/U and Follow- up Visit Requested Depression Screening Done: Yes 23739 - PHQ-9 Billing: Yes Source: Developed by Drs. Rizwan Garcia, Miroslava Saez, Rigo Mccoy and colleagues, with an educational wilfredo from [employer]. Thrive Questionnaire Date Thrive assessed: 01/09/25 I am a: Patient What is your living situation today?: I choose not to answer this question Within the past 12 months, did the food you bought not last and you didn't have the money to get more?: Never true Within the past 12 months, did you worry whether your food would run out before you got money to buy more?: I choose not to answer this question Do you have trouble paying for medicines?: No Do you have trouble getting transportation to medical appointments?: No Do you have trouble paying your heating and electricity bill?: No Do you have trouble taking care of your child, family member or friend?: No Do you have trouble with day-to-day activities such as bathing, preparing meals, shopping, managing finances, etc.?: No Are you currently unemployed and looking for a job?: No Are you interested in more education?: I choose not to answer this question Please select the resources that you would like help with: Transportation Currently or been in a relationship where the following occur: No concerns reported THRIVE Score: 0 AUDIT C Alcohol Use Questionnaire (AUDIT-C) 1. How often do you have a drink containing alcohol?: Never Total Score: 0 Score Reviewed/Action Taken: No RUBIA-7 AMB Questionnaire RUBIA-7 Date RUBIA - 7 assessed: 01/09/25 Feeling nervous, anxious, or on edge: 1 = Several days Not being able to stop or control worryin = Not at all Worrying too much about different things: 1 = Several days Trouble relaxin = Several days Being so restless that it is hard to sit still: 0 = Not at all Becoming easily annoyed or irritable: 0 = Not at all Feeling afraid as if something awful might happen: 1 = Several days Total RUBIA-7 score (0-4 normal; 5-9 mild; 10-14 moderate; 15-21 severe): 4 Source: Developed by Drs. Rizwan Garcia, Miroslava Saez, Rigo Mccoy and colleagues, with an educational wilfredo from [employer]. RUBIA-7 Assessment Billing RUBIA-7 Assessment Tool: RUBIA-7 Assessment 49058 Review of Systems Const All systems reviewed & are unremarkable except as noted in HPI and below ENT Reports nasal congestion Card Denies chest pain at rest, Denies chest pain with activity, Denies edema, Denies irregular heart rhythm, Denies claudication, Denies dyspnea, Denies dyspnea on exertion, Denies orthopnea, Denies paroxysmal nocturnal dyspnea and Denies slow heart rate Resp Reports cough, Denies dyspnea and Denies dyspnea on exertion GI Denies abdominal pain, Denies change in bowel habits, Denies excessive flatus, Denies nausea and Denies vomiting Denies urinary incontinence, Denies urinary hesitancy and Denies urinary urgency Physical exam (Primary Care) Vital Signs: Last Vital Signs BP 130/80 01/09/25 12:21 BMI result Body Mass Index 37.0 Tobacco/Smoking Status: Tobacco use Status Tobacco use date assessed 01/09/25 01/09/25 12:32 Patient Tobacco Use Status Never used Tobacco 01/09/25 12:24 Tobacco use type 01/09/25 12:32 e-Cigarette/Vaping Use Never Used 01/09/25 12:24 PHQ-9: PHQ-9 Score PHQ-9: Total score 5 01/09/25 12:32 Depression Screening Interpretation: Positive Depression Screening Follow-up: Existing condition, In treatment, Community Mental Health Worker F/U and Follow- up Visit Requested Thrive Assessment: Date of Thrive Assessment Date Thrive assessed 01/09/25 01/09/25 12:24 Currently or been in a relationship where the following occur: No concerns reported Resp Effort & Inspection: normal respiratory effort Auscultation: clear to auscultation bilaterally Cardio Jugular venous distension: no JVD Rate: regular rate Rhythm: regular rhythm Heart sounds: S1 normal heart sound present and S2 normal heart sound present Extrem General: Yes full ROM Coding Level of Care Code Est Pt Level 4 (98549) Complex EM visit Add On G2211 Diagnoses URI (upper respiratory infection) J06.9 Left shoulder pain M25.512 Neck pain M54.2 Primary hypertension I10 Hypertension type: primary hypertension Mild recurrent major depression F33.0 Additional Codes PHQ-9 - 19009 - PHQ-9 Billing: Yes ([id number]) RUBIA-7 Assessment Billing - RUBIA-7 Assessment Tool: RUBIA-7 Assessment 48895 ([id number]) Time Spent (min) 22 Assessment & Plan Assessment & Plan (1) URI (upper respiratory infection): Code(s): J06.9 - Acute upper respiratory infection, unspecified Category: Medical (2) Left shoulder pain: Code(s): M25.512 - Pain in left shoulder Category: Medical (3) Neck pain: Code(s): M54.2 - Cervicalgia Category: Medical (4) Hypertension: Code(s): I10 - Essential (primary) hypertension Category: Medical Qualifiers: Hypertension type: primary hypertension Qualified Code(s): I10 - Essential (primary) hypertension (5) Mild recurrent major depression: Code(s): F33.0 - Major depressive disorder, recurrent, mild Category: Medical Plan The patient will undergo testing for COVID-19, influenza, and RSV to rule out viral infections contributing to her upper respiratory symptoms. An antibiotic will be prescribed to address the sore throat and potential bacterial infection. A cervical and shoulder X-ray will be performed to evaluate the cause of her shoulder pain. The patient's current medications for hypertension and depression will be continued, with a follow-up to assess the effectiveness of duloxetine in managing her depressive symptoms. Patient was informed and verbally consented to the use of an ambient scribe for clinic note documentation during this visit. I discussed with the patient the plan to test for COVID-19, influenza, and RSV to identify any viral causes for her symptoms. We also talked about starting an antibiotic to treat her sore throat and the possibility of a bacterial infection. I explained the need for a cervical and shoulder X-ray to investigate her shoulder pain further. We reviewed her current medication regimen, emphasizing the importance of continuing her antihypertensive and antidepressant medications. Orders: Orders SARS-CoV2/FLU/RSV Today R09.89 - Other specified symptoms and signs involving the circulatory and respiratory systems XR cervical spine 2V Today M54.2 - Cervicalgia XR shoulder LT min 2V Today M25.512 - Pain in left shoulder Medications: New amoxicillin-pot clavulanate 875-125 mg 1 tab PO BID 7 days 14 tabs 0RF prednisone Take 4 tabs for 2 days, then 3 tabs for 2 days, then 2 tabs for 2 days, then 1 tab for 2 days 10 mg PO DIRECTED 8 days 20 tabs 0RF Changed From albuterol sulfate 90 mcg/actuation (ProAir HFA) 2 puffs inhalation Q4H PRN 8.5 grams 8RF shortness of breath or wheezing To albuterol sulfate 90 mcg/actuation 2 puffs inhalation Q4H PRN 8.5 grams 8RF shortness of breath or wheezing Patient Instructions: - Get tested for COVID-19, influenza, and RSV at the lab on the first floor. - Take the prescribed antibiotic as directed. - Follow up for a cervical and shoulder X-ray as scheduled. - Continue taking your blood pressure and depression medications as prescribed.
[2025-01-09 12:21] VITALS: BP 130/80; BMI 37.0
--- OUTSIDE RECORDS SUMMARY | 2025-01-09 13:56 | XMS_ITS | Patient Health Record ---
Author Organization [facility] Address [address] [place] [address] Care Team Providers Care Furniture Salesperson Name Role Phone Juan C CARLIN, Torey Primary Care Provider Ezequiela Loni Stallings Unavailable [phone] Allergies No Known Allergies Reason For Referral [...] Coverage Start Date Coverage End Date [facility] SCO Claims [address] [place] [id number] [phone] [id number] Temitope Tom Self - patient is the insured Medical (General) History Medical History History ICD Code Back,Hip,and Knee pain High blood pressure Surgical History Surgery Date(Month/Year)
== END 2025-01-09 12:45 | disposition home or self-care (01) ==
LOC: HO.HMCH 11:48
PROVIDERS: PCP Internal Medicine; Visit Provider Internal Medicine
DX: J06.9 Acute upper respiratory infection, unspecified (principal); M25.512 Pain in left shoulder; M54.2 Cervicalgia; I10 Essential (primary) hypertension; F33.0 Major depressive disorder, recurrent, mild

== ENCOUNTER → 2025-01-09 13:13 | Outpatient (BNV) | payer OTHER, SELFPAY | PROVIDERS: PCP Internal Medicine; Visit Provider Radiology Diagnostic Radiology | DX: M43.12 Spondylolisthesis, cervical region (principal); M19.012 Primary osteoarthritis, left shoulder | CPT/HCPCS: 72040; 73030 ==

== ENCOUNTER 2025-05-28 09:54 | Outpatient (REF) | payer OTHER, SELFPAY ==
--- OUTSIDE RECORDS SUMMARY | 2025-05-22 12:25 | XMS_ITS | Encounter Summary ---
Author Organization [facility] Address [address] [place] [address] Care Team Providers Care [place] Tour Guide Name Role Phone Tena Carrillo MD Primary Care Provider [phone] Reason for Referral * Home Health (Routine) - Closed Specialty Diagnoses / Procedures Referred By Greg batres Referred To Contact Home Health Services Diagnoses Stroke-like symptom Marcelo Barnes MD [address] [place] [address] Phone: tel: fax: [facility] [address] [place] [address] Phone: tel: fax: Referral ID Status Reason Start Date Expiration Date V isits Requested Visits Authorized [id number] Closed Consult and Treat 05/23/2025 05/23/2026 1 1 * Cardiac Stress Testing (Routine) - Authorized Specialty Diagnoses / Procedures Referred By Greg batres Referred To Contact Cardiology Diagnoses Stroke-like symptom Procedures Cardiac holter monitor (<= 48 hours) NE ECG EXTERNAL UP TO 48 HOURS RECORDING NE ECG EXTERNAL < 48 HOURS CONTINUOUS RECORDING/STORAGE R&I BY A PHYS/QHP NE EXTERNAL ECG UP TO 48 HRS INCL RECORDING SCANNING ANLYS W REPORT Marcelo Barnes MD [address] [place] [address] Phone: tel: fax: [facility] Referral ID Status Reason Start Date Expiration Date V isits Requested Visits Authorized [id number] Authorized 05/23/2025 05/23/2026 1 1 * Imaging (Routine) - Authorized Specialty Diagnoses / Procedures Referred By Uteac t Referred To Contact Cardiology Diagnoses Stroke-like symptom Procedures Transthoracic echocardiogram (TTE) complete with PRN contrast, bubble, strain, and 3D order panel NE TTE W 2D IMAGE COMPLETE W DOPPLER ECHO & COLOR FLOW DOPPLER ECHO NE YONIS 2D COMPLETE W/CONTRAST OR W & WO CONTRAST WITH DOPPLER Marcelo Barnes MD [address] [place] [address] Phone: tel: fax: [facility] Referral ID Status Reason Start Date Expiration Date V isits Requested Visits Authorized [id number] Authorized 05/23/2025 05/23/2026 1 1 Reason for Visit * Reason Comments Extremity Weakness * Auth/Cert (Routine) Specialty Diagnoses / Procedures Referred By Greg batres Referred To Contact Diagnoses Stroke-like symptom Transient neurological symptoms Procedures . Marcelino Vu MD [address] [place] [address] Phone: tel: fax: [facility] [address] [place] [address] Phone: tel: Referral ID Status Reason Start Date Expiration Date Visits Re quested Visits Authorized [id number] 1 1 Encounter Details Date Type Department Care Team (Late st Contact Info) Description 05/22/2025 12:25 PM EDT - 05/23/2025 5:48 PM EDT Hospital Encounter [facility] [address] [place] [address] Bryon Morgan MD [address] [facility] [address] [place], [place] [address] Marcelino Vu MD [address] [place] [address] Marcelo Barnes MD [address] [place] [address] Stroke-like symptom (Primary Dx) Discharge Disposition: Home-Health Care Svc Social History Tobacco Use Types Packs/Day Years Used Date Smoking Tobacco: Never Smokeless Tobacco: Never Tobacco Cessation:Counseling Given: Not Answered Alcohol Use Standard Drinks/Week Comments Not Currently 0 (1 standard drink = 0.6 oz pur e alcohol) Housing Instability Answer Date Recorde d Are you worried that in the next 2 months you may not have stable housing? No 05/22/2025 Food Access & Nutrition Answer Date Rec orded Do you have access to a vari ety of food including fruits and vegetables? No 05/22/2025 Access to Healthcare Answer Date Record ed Within the last 3 months, ho w many times did you visit the emergency department for your medical care? 0 05/22/2025 Health Literacy Answer Date Recorded How often do you need to hav e someone help you when you read instructions, pamphlets, or other written material from your doctor or pharmacy? Never 05/22/2025 Caregiver: How often do you need to have someone help you when you read instructions, pamphlets, or other written material from your doctor or pharmacy? Not on file 05/22/2025 Financial Risk Answer Date Recorded How hard is it for you to pa y for the very basics like food, housing, medical care, and air conditioning / heating? Patient declined 05/22/2025 Transportation Answer Date Recorded Has the lack of transportati on kept you from meetings, work, or from getting things needed for daily living? No Has the lack of transportati on kept you from medical appointments or from getting medications? No 05/22/2025 Social Isolation Answer Date Recorded How often do you feel lonely or isolated from th ose around you? Never 05/22/2025 Food Risk Answer Date Recorded Within the past 12 months we worried whether our food would run out before we got money to buy more. Never true 05/22/2025 Within the past 12 months th e food we bought just didn't last and we didn't have money to get more. Never true 05/22/2025 Dependent Care Answer Date Recorded Do you need help finding or paying for care for your loved ones. For example, early childhood teacher assistant or elderly care for an older adult? No 05/22/2025 Education Answer Date Recorded Do you think completing more education or training, like finishing a GED, going to college, or learning a trade, would be helpful for you? No 05/22/2025 Employment and Income Answer Date Recor ded During the last four weeks, have you been actively looking for work? No 05/22/2025 Living Situation Answer Date Recorded What is your living situation? Unrecognized valu e 05/22/2025 Interpersonal Safety Answer Date Record ed Physical Abuse Unrecognized value 05/22/2025 Verbal Abuse Unrecognized value 05/22/2025 Comments Unknown Sex and Gender Information Value Date Recorded Sex Assigned at Not on file Legal Sex Female 11:37 AM EDT Gender Identity Not on file Sexual Orientation Not on file documented as of this encounter Last Filed Vital Signs Vital Sign Reading Time Taken Comments Blood Pressure 115/62 05/23/2025 11:27 AM EDT Pulse 52 05/23/2025 11:27 AM EDT Temperature 36.3 C (97.4 F) 05/23/2025 11:27 AM EDT Respiratory Rate 18 05/23/2025 11:27 AM EDT Oxygen Saturation 100% 05/23/2025 11:27 AM EDT Inhaled Oxygen Concentration - - Weight - - Height - - Body Mass Index - - documented in this encounter Functional Status * Calculated C-SSRS Risk Score (Lifetime/Recent) Answer Date of Assessment Author No Risk Indicated 05/22/2025 8:54 PM EDT Suly Sauceda RN * [place] Suicide Severity Rating Scale (Screener/Recent Self-Report) Question Answer Date of Assessment Author 1. Wish to be (Past 1 Month) No 025 8:54 PM EDT Suly Sauceda RN 2. Non-Specific Active Suici maximo Thoughts (Past 1 Month) No 05/22/2025 8:54 PM EDT Suly Sauceda, KELLY 6. Suicidal Behavior (Lifetime) No 8:54 PM EDT Suly Sauceda RN documented as of this encounter Discharge Summaries * Marcelo Barnes MD - 05/23/2025 5:48 PM EDT Images from the original note were not included. [place] DISCHARGE SUMMARY Patient Information Temitoep Tom : 1965 [60 y.o.] Admitting Provider Marcelino Vu MD Discharge Provider Robles Hitchcock MD, No att. providers found Primary Care Physician Tena Carrillo MD Admission Date 05/22/2025 Discharge Date 05/23/2025 Summary of Hospital Problems Primary Discharge Diagnosis: Transient neurological deficit Secondary Discharge Diagnosis: Depression Hyperlipidemia Hypertension Hyperactive bladder Discharge Destination: Home, health services Code Status at Discharge: Full code Hospital Course Summary As taken from the history and physical: The patient is 60-year-old female with medical history significant for HTN, HLD, depression, overactive bladder who comes to emergency room via ambulance complaining of lower lip numbness, left upper extremity weakness, intermittent dizziness with headache, intermittent blurry vision bilaterally. She reports onset of symptoms last night at 10 PM. Upon arrival to ED patient has been neurologically stable. She denies shortness of breath, fever chills, chest pain, palpitations, nausea vomiting diarrhea, abdominal pain, recent travel. In ED patient was hemodynamically stable Workup was notable for CBC electrolytes unremarkable, troponin [address] elevation or depression CTA head and neck no acute findings Patient received loading dose of aspirin ED provider discussed with neurologist on-call, neurology recommendations appreciated Admitting patient to [facility] for stroke workup The patient was then admitted to medicine for further evaluation and treatment. The following issues were addressed: # Middle-aged female with a past medical history who presented with a prolonged episode of left upper extremity weakness, intermittent dizziness, headache, blurry vision, lip numbness, evaluation in the ED shows a CT/CTA of the head and neck without acute abnormalities, MRI of the brain was done showing essentially normal brain, patient was started on aspirin and she was continued with statin, noneurological changes observed during the hospital stay, her telemetry shows sinus rhythm without ectopy. Given her benign workup the patient is deemed to be stable for discharge with follow-up as an outpatient, an echocardiogram and Holter monitor were ordered for outpatient assessment. Differential diagnosis included TIA versus complicated migraine. She denies any history of headaches in the past. Patient will have outpatient echocardiogram and Holter monitor to complete workup, follow-up withPCP. # Hypertension. Will resume her chronic medications as usual, no changes. # Depression. Continue duloxetine # Overactive bladder, patient can resume her chronic medication, follow-up with outpatient provider. Providers consulted: None Procedures done: MR Brain wo Contrast Final Result No acute findings. This document has been electronically signed by: Narinder Andrea MD on 05/22/2025 19:31:23 XR Chest 1 View Final Result FINDINGS/IMPRESSION: Hypoventilatory examination with bronchovascular crowding. Possible mild pulmonary congestion or atypical infectious/inflammatory process not excluded. Borderline heart size. Degenerative osseous changes. -------- FINAL REPORT -------- Dictated By: Lynda De Oliveira Dictated Date: 05/22/2025 14:58 ET Assigned Physician: Lynda De Oliveira Reviewed and Electronically Signed By: Lynda De Oliveira Signed Date: 05/22/2025 14:58 ET Workstation ID: [id number] Transcribed By: Self Edit Transcribed Date: 05/22/2025 14:[address] Head Stroke wo Contrast Final Result NO ACUTE INTRACRANIAL ABNORMALITY. Findings communicated to Dr. Morgan at approximately 1:23PM via secure text. -------- FINAL REPORT -------- Dictated By: Lynda De Oliveira Dictated Date: 05/22/2025 13:23 ET Assigned Physician: Lynda De Oliveira Reviewed and Electronically Signed By: Lynda De Oliveira Signed Date: 05/22/2025 13:26 ET Workstation ID: [id number] Transcribed By: Self Edit Transcribed Date: 05/22/2025 13:[address] Angio Head/Neck Stroke wo and/or w Contrast Final Result No evidence of hemodynamically significant stenosis in the head or neck. -------- FINAL REPORT -------- Dictated By: Lynda De Oliveira Dictated Date: 05/22/2025 13:29 ET Assigned Physician: Lynda De Oliveira Reviewed and Electronically Signed By: Lynda De Oliveira Signed Date: 05/22/2025 13:29 ET Workstation ID: [id number] Transcribed By: Self Edit Transcribed Date: 05/22/2025 13:29 ET Transthoracic echocardiogram (TTE) complete with PRN contrast, bubble, strain, and 3D order panel (Results Pending) Cardiac holter monitor (<= 48 hours) (Results Pending) Condition upon discharge Patient feels back to baseline, ambulating dependently, seen by PT recommended home PT, no other complaints. Visit Vitals BP 115/62 (BP Location: Right arm, Patient Position: Lying) Pulse 52 Temp 36.3 ??C (97.4 ??F) (Temporal) Resp 18 Temp (24hrs), Av.3 ??C (97.3 ??F), Min:36.1 ??C (97 ??F), Max:36.4 ??C (97.5 ??F) Normocephalic and atraumatic with moist oral mucosa, anicteric, normal gait, speech is clear, face symmetric, tongue is midline, strength is symmetric and normal, neck supple, no JVD, lungs clear to auscultation, heart regular with no murmurs, abdomen soft and nontender, extremities without clubbing, cyanosis or edema. . There is no height or weight on file to calculate BMI. No results found for: PTWT , PTHT 45 Minutes were spent in patient care including lako-qj-fiaf time, chart review, discussion with providers, documentation, chromosomal disorders counselor. Moderate complexity medical decision making. Follow-Up Instructions and Recommendations [facility] [address] [place] [address] Primary care provider (PCP) Tena Carrillo MD [address] [place] [address] , [address] Physician [facility] D/B/A: [facility] [phone] [facility] [address] [address] Discharge Procedure Orders Ambulatory referral to Home Health Standing Status: Future Referral Priority: Routine Referral Type: Home Health Referral Reason: Consult and Treat Referral Location: [facility] Requested Specialty: Home Health Services Number of Visits Requested: 1 Restrict your activities and rest today, may resume normal activity tomorrow Order Comments: Advance activity as tolerated under PT guidance. Primary care provider (PCP) Order Specific Question Answer Comments Follow-Up Within: 7 Follow-Up in: Days Cardiac holter monitor (<= 48 hours) Standing Status: Future Standing Exp. Date: 05/23/26 Scheduling Instructions: PREFERRED SCHEDULE LOCATION: Order Specific Question Answer Comments Reason for exam: TIA How long should the holter monitor be worn? 48 hours What is the type of holter monitor? Other Per protocol Should the monitor be mailed to the patient? No In what REGION should this be scheduled? [facility] [[id number]] Release to patient Immediate [1] Transthoracic echocardiogram (TTE) complete with PRN contrast, bubble, strain, and 3D order panel Standing Status: Future Standing Exp. Date: 05/23/26 Scheduling Instructions: PREFERRED SCHEDULE LOCATION: Order Specific Question Answer Comments Contrast Enhancement (Bubble Study or Definity) may be used if criteria listed in established evidence-based protocol has been identified. Contrast and bubble study per evidence based protocol In what REGION should this be scheduled? [facility] [[id number]] Release to patient Immediate [1] There are no outpatient Patient Instructions on file for this admission. Discharge Medications Your medication list START taking these medications Instructions Last Dose Given Next Dose Due acetaminophen 325 mg tablet Commonly known as: TYLENOL Take 2 tablets (650 mg total) by mouth every 6 (six) hours if needed for mild pain or fever - temperature GREATER than 38 C (100.4 F) for up to 10 days. aspirin 81 mg EC tablet Start taking on: May 24, 2025 Take 1 tablet (81 mg total) by mouth 1 (one) time each day. CONTINUE taking these medications Instructions Last Dose Given Next Dose Due albuterol HFA 90 mcg/actuation inhaler Commonly known as: PROAIR HFA ; PROVENTIL HFA ; VENTOLIN HFA atorvastatin 10 mg tablet Commonly known as: LIPITOR Take 1 tablet (10 mg total) by mouth 1 (one) time each day after lunch. DULoxetine [address] capsule Commonly known as: CYMBALTA Tabor 1 c??psula (60 mg en total) por v??a oral 1 (fredo) vez al d??a. (Take 1 capsule (60 mg total) by mouth 1 (one) time each day.) Gemtesa 75 mg tablet tablet Generic drug: vibegron Tabor 1 tableta (75 mg en total) por v??a oral 1 (fredo) vez al d??a. (Take 1 tablet (75 mg total) by mouth 1 (one) time each day.) hydroCHLOROthiazide 12.5 mg tablet Take 1 tablet (12.5 mg total) by mouth 1 (one) time each day. meloxicam 15 mg tablet Commonly known as: MOBIC Take 0.5 tablets (7.5 mg total) by mouth 1 (one) time each day if needed for mild pain. metoprolol succinate 25 mg 24 hr tablet Commonly known as: TOPROL-XL Tabor 1 tableta (25 mg en total) por v??a oral 1 (fredo) vez al d??a. (Take 1 tablet (25 mg total) by mouth 1 (one) time each day.) Where to Get Your Medications These medications were sent to [facility] at [place] [address] acetaminophen 325 mg tablet aspirin 81 mg EC tablet documented in this encounter Discharge Instructions * Discharge Instructions* Marcelo Barnes MD - 05/23/2025 3:16 PM EDT Follow-up with PCP within a week from discharge Read carefully handout provided You will be contacted by the cardiology office of [facility] cardiology with an appointment jeremy outpatient echocardiogram and Holter monitor , please call [phone] in 1 week if you have not been contacted with an appointment by then. Is very important to continue your chronic medication for blood pressure control. You may be contacted to increase the dose of your cholesterol medication based on results of lipid panel still pending at the time of the discharge. * Attachments The following attachments cannot be sent through Care Everywhere. * TIA (Transient Ischemic Attack) (Kiswahili) documented in this encounter Medications at Time of Discharge acetaminophen (TYLENOL) 325 mg tablet Take 2 tablets (650 mg total) by mouth every 6 (six) hours if needed for mild pain or fever - temperature GREATER than 38 C (100.4 F) for up to 10 days. 30 tablet 05/23/2025 albuterol HFA (PROAIR HFA ; PROVENTIL HFA ; VENTOLIN HFA) 90 mcg/actuation inhaler 02/07/2025 aspirin 81 mg EC tablet Take 1 tablet (81 mg total) by mouth 1 (one) time each day. 30 each 11 05/24/2025 atorvastatin (LIPITOR) 10 mg tablet Take 1 tablet (10 mg total) by mouth 1 (one) time each day after lunch. 11/03/2021 DULoxetine (CYMBALTA) [address] capsule Take 1 capsule (60 mg total) by mouth 1 (one) time each day. 05/21/2025 Gemtesa 75 mg tablet tablet Take 1 tablet (75 mg total) by mouth 1 (one) time each day. 05/05/2025 hydroCHLOROthiaz kyle 12.5 mg tablet Take 1 tablet (12.5 mg total) by mouth 1 (one) time each day. 11/03/2021 meloxicam (MOBIC) 15 mg tablet Take 0.5 tablets (7.5 mg total) by mouth 1 (one) time each day if needed for mild pain. 05/15/2025 metoprolol succinate (TOPROL-XL) 25 mg 24 hr tablet Take 1 tablet (25 mg total) by mouth 1 (one) time each day. 04/17/2025 documented as of this encounter Ordered Prescriptions Prescription Sig Dispense Quantity Refills Last Filled Start Date End Date aspirin 81 mg EC tablet Take 1 tablet (81 mg total) by mouth 1 (one) time each day. 30 each 11 05/24/2025 acetaminophen (TYLENOL) 325 mg tablet Take 2 tablets (650 mg total) by mouth every 6 (six) hours if needed for mild pain or fever - temperature GREATER than 38 C (100.4 F) for up to 10 days. 30 tablet 05/23/2025 documented in this encounter Discharge Disposition Disposition Code Departure Means Destination Comment s Home-Health Care [facility] Walk-out documented in this encounter Progress Notes * Asia York RN - 05/23/2025 5:41 PM EDT Discharge instructions reviewed with pt and daughter. All questions answered. Pt aware lipid panel pending and might receive a call to increase statin. Pt denied wheelchair to car * Kia Meek RN - 05/23/2025 4:06 PM EDT 05/23/25 1606 Transportation Transportation at discharge Family What day is the transport expected? 05/23/25 Final Discharge Disposition Home Health Care Services Pt d/c home with [facility] for home PT, [facility] notified via [facility] of d/c today * Adelina Ann, OT - 05/23/2025 2:08 PM EDT [facility] Occupational Therapy Evaluation DATE: Friday May 23, 2025 TIME IN: 1330 TIME OUT: 1400 Pt: Temitope Tom ROOM: 432/432-2 Discharge Recommendation: Home Independent without services Equipment Recommendation: none Staff recommendations for safe patient handling: Supervision Modified [place] Scale Score: 1=No significant disability. Able to carry out all usual activities, despite some symptoms. Assessment: Patient is a 60 y.o. female presenting for OT evaluation following admission due to transient neurological symptoms. During today's skilled acute care OT evaluation, pt demonstrated the following deficits: no significant deficits. Pt appears to be at her baseline level of self care and functional mobility without need for an assistive device. Pt currently requires no assistance for ADLs and supervision level for functional transfers/mobility. OT Time Calculation OT Start Time: 1330 OT Stop Time: 1400 OT Time Calculation (min): 30 min History of Present Illness: Patient is a 60 y.o. female admitted to [facility] on 05/22/2025. Occupational Therapy evaluation and treatment ordered to assess ADL independence, safety, and functional mobility for discharge planning. Problem List[1] Medical History[2] Surgical History[3] Subjective I have my strength and sensation back again and feel like I am at baseline. Patient agreeable to engage in OT evaluation and treatment. Objective Patient was identified by name and x2. Hearing: Intact Speech: Intact Vision: Vision: Intact Clerk Checker Services Is an power lineman technician used? : Yes Information Interpreted: Admission Clerk Checker Name or Number: Hossein [id number] Type of Resource Used: Video remote power lineman technician - 05/23/25 1330 OT Last Visit OT Received On 05/23/25 General Family/Caregiver Present Yes General Comments dtr OT Time Calculation OT Start Time 1330 OT Stop Time 1400 OT Time Calculation (min) 30 min Precautions Medical Precautions Fall Risk Safety Interventions Call pablo within reach;ID band on RUE Weight Bearing Status Full LUE Weight Bearing Status Full RLE Weight Bearing Status Full LLE Weight Bearing Status Full Pain Assessment Pain Assessment No/denies pain Pain Score 0 - No pain Home Living Type of Home Apartment (11th floor with elevator) Lives With Alone Home Adaptive Equipment None Home Layout One level Home Access Level entry;Elevator Bathroom Shower/Tub Tub/shower unit Bathroom Toilet Handicapped height Bathroom Equipment Grab bars in shower;Grab bars around toilet Prior Function Level of [place] Independent with mobility and functional transfers Ambulation Status Household ambulator;Community ambulator Receives Help From Family;Friends Indoor Mobility Assistance Independent Stairs Assistance Not Applicable Prior Device Use No prior device use Do you drive? No Mode of Transportation Other (Comment) (pt has transportation to medical appts) Which is your dominant hand? Right ADL/IADL History ADL Assistance (Self Care) Independent Homemaking Assistance (Functional Cognition) Independent ADL Eating Assistance Independent Grooming Assistance Independent Oral Hygiene Assistance Independent Bathing Assistance Modified independent UE Dressing Assistance Modified independent LE Dressing Assistance Modified independent Footwear Assistance Modified independent Toileting Assistance Independent Bed Mobility Lying to Sitting Assistance Supervision Functional Transfers Sit to Stand Assistance Supervision Chair/Bed to Chair/Bed Assistance Supervision Toilet Transfer Assistance Supervision Functional Mobility Walking Assistance Supervision Static Sitting Balance Static Sitting-Level of Assistance Independent Dynamic Sitting Balance Dynamic Sitting-Level of Assistance Independent Static Standing Balance Static Standing-Level of Assistance Supervision Cognition Orientation Level Oriented X4 Proprioception Proprioception No apparent deficits Sensation Light Touch No apparent deficits Hand Function Gross Grasp Functional Coordination Coordination Functional RUE Assessment RUE Assessment Within Functional Limits RUE Assessment Comments 5/5 strength throughout LUE Assessment LUE Assessment Within Functional Limits LUE Assessment Comments 5/5 strength throughout RLE Assessment RLE Assessment Within Functional Limits LLE Assessment LLE Assessment Within Functional Limits OT Assessment OT Assessment Results At baseline Prognosis Excellent Evaluation/Treatment Tolerance Patient tolerated treatment well Plan OT Plan No skilled OT OT - Evaluation Status Complete OT Discharge Recommendations Home independent Equipment Recommended None OT Evaluation Time Entry OT Evaluation (Low) Time Entry 30 ADDITIONAL COMMENTS: Chart reviewed. RN clears pt for session. Pt agrees to participate and received sitting in chair and tray table and call light within reach. All lines in place. Daughter present during session. Medical precautions observed appropriately. Initiated education on Role of OT, Transfer Safety, ADL Techniques and Safety , and Discharge Recommendation. Pt verbalized understanding. EXIT STATUS: Session ended with patient sitting in chair, tray table and call light within reach, and RN made aware. Needs in reach. RN made aware. OT Goals Pt seen for OT eval and treatment session to assess ADL and functional status. See above for details of evaluation/treatment session. OT Assessment OT Assessment Results: At baseline Prognosis: Excellent Evaluation/Treatment Tolerance: Patient tolerated treatment well Plan OT Plan: No skilled OT OT - Evaluation Status: Complete OT Discharge Recommendations: Home independent Equipment Recommended: None Encounter Problems Encounter Problems (Active) There are no active problems. Encounter Problems (Resolved) There are no resolved problems. Education Documentation No documentation found. Education Comments No comments found. Adelina Ann OT [1] Patient Active Problem List Diagnosis Transient neurological symptoms HTN (hypertension) HLD (hyperlipidemia) Depressed Overactive bladder [2] Past Medical History: Diagnosis Date Depression HLD (hyperlipidemia) HTN (hypertension) Overactive bladder [3] History reviewed. No pertinent surgical history. * Kia Meek RN - 05/23/2025 11:41 AM EDT 05/23/25 1141 Initial Transition Plan Initial Transition Plan Home Back up Transition Plan Back up Transition plan Home Health Care Discharge Planning Living Arrangements Alone Type of Residence Private residence Assistive Devices None Support Systems Children Medication Coverage Has Med Coverage Under Insurance Plan Yes Medication Affordability No concerns related to payment for meds Anticipated Discharge Needs Discipline following for SNF placement Equity Research Analyst Informed Choice Informed Choice Given? Yes Transportation Transportation at discharge Family ICC met with pt at bedside. Demographics confirmed. Pt reported she lives at home alone, does not use DME at baseline. Pt reported she has support from her daughter and daughter can transport home atd/c. ICC will continue to follow * Calli Lam, PT - 05/23/2025 9:30 AM EDT [facility] ACUTE CARE PT EVALUATION [employer] 1965 Ambulation: Walking Assistance: Close supervision Device: No device Distance Ambulated (ft): (110 ft + 180 ft with rest) PLOF: Level of [place]: Independent with mobility and functional transfers Lives With: Alone Receives Help From: Family, Friends Type of Home: Apartment (11th floor with elevator) Home Adaptive Equipment: None Home Layout: One level Home Access: Level entry, Elevator Home Living Comments: (apt with elevator, no steps to enter) DME Needs: none PT Discharge Recommendation: Home PT Diagnosis: ICD-10-CM ICD-9-CM 1. Stroke-like symptom R29.90 781.99 Medical History[1] Surgical History[2] PT Received On: 05/23/2025 SUBJECTIVE Video power lineman technician used: Gayla [id number]. I take the bus and go food shopping. My daughter is very busy PT Time Calculation: PT Time Calculation PT Start Time: 0930 PT Stop Time: 1010 PT Time Calculation (min): 40 min OBJECTIVE Precautions: Precautions Medical Precautions: Fall Risk Safety Interventions: Call pablo within reach, ID band on RUE Weight Bearing Status: Full LUE Weight Bearing Status: Full RLE Weight Bearing Status: Full LLE Weight Bearing Status: Full Cognition: Cognition Overall Cognitive Status: Within Functional Limits Arousal/Alertness: Appropriate responses to stimuli Orientation Level: Oriented X4 Following Commands: Follows all commands and directions without difficulty Safety Judgment: Good awareness of safety precautions Vital Signs: Oxygen Therapy Oxygen Therapy: None (Room air) Pain Assessment: Pain Assessment: No/denies pain Pain Score: 0 - No pain Home Living: Home Living Lives With: Alone (her dtr is busy but checks on her at times) Home Adaptive Equipment: Cane Home Living Comments: (apt with elevator, no steps to enter) Prior Function: Prior Function Level of [place]: Independent with mobility and functional transfers Ambulation Status: Household ambulator, Community ambulator Receives Help From: Family Indoor Mobility Assistance: Independent Prior Device Use: No prior device use Functional Assessments: Dynamic Standing Balance Dynamic Standing-Level of Assistance: Supervision Dynamic Standing-Balance: Ambulation Dynamic Standing-Comments: fair+ to good without AD Bed Mobility Sitting to Lying Assistance: Close supervision Lying to Sitting Assistance: Close supervision Bed Mobility Comments: pt sat @ EOB for minutes Transfers Sit to Stand Assistance: Close supervision Sit to Stand Deficit: Steadying, Verbal cueing Ambulation Walking Assistance: Close supervision Device: No device Distance Ambulated (ft): (110 ft + 180 ft with rest) Comments: steady Modified [place] Scale Score: 1=No significant disability. Able to carry out all usual activities, despite some symptoms. Extremity Assessments: RUE Assessment RUE Assessment: Within Functional Limits RUE Assessment Comments: LUE Assessment LUE Assessment: Within Functional Limits LUE Assessment Comments: RLE Assessment RLE Assessment: Within Functional Limits RLE Assessment Comments: grossly 5/5, hip flex, knee ext and ankle DF LLE Assessment LLE Assessment: Within Functional Limits LLE Assessment Comments: grossly 5/5, hip flex, knee ext and anklel DF Education: Education Documentation Mobility Training, taught by Calli Lam, PT at 05/23/2025 9:30 AM. Learner: Patient Readiness: Acceptance Method: Explanation Response: Verbalizes Understanding Comment: ask her dtr to do shopping for her for now. Home PT Education Comments No comments found. ASSESSMENT Pt ambulated safely without therefore safe to go home. Rec home PT for home safety eval, walk outdoors, HEP, walk to basement to do laundry, balance training, PT Assessment: PT Assessment PT Assessment Results: At baseline Prognosis: Good Evaluation/Treatment Tolerance: Patient tolerated treatment well Medical Staff Made Aware: Yes PLAN PT Plan: During acute care stay: PT Plan: No skilled PT PT Discharge Recommendations: Home PT PT Evaluation Time Entry G RHB Shannon PT Evaluation Time Entry PT Evaluation (Moderate) Time Entry: 40 [1] Past Medical History: Diagnosis Date Depression HLD (hyperlipidemia) HTN (hypertension) Overactive bladder [2] History reviewed. No pertinent surgical history. * Suly Sauceda RN - 05/23/2025 12:38 AM EDT Problem: Cognitive: Tissue Perfusion, Cerebral; Alteration or Risk of Goal: Knowledge of disease or condition will improve Outcome: Progressing Goal: Knowledge of the prescribed therapeutic regimen will improve Outcome: Progressing Goal: Family/ Caregiver's knowledge of disease or condition will improve Outcome: Progressing Goal: Family/Caregiver's knowledge of the prescribed therapeutic regimen will improve Outcome: Progressing Problem: Tissue Perfusion: Tissue Perfusion, Cerebral; Alteration or Risk of Goal: Signs of adequate cerebral perfusion will increase Outcome: Progressing Goal: Ability to maintain a stable neurologic state will improve Outcome: Progressing Goal: Will regain or maintain usual Level Of Consciousness Outcome: Progressing Problem: Respiratory: Tissue Perfusion, Cerebral; Alteration or Risk of Goal: Will regain and/or maintain adequate ventilation Outcome: Progressing Problem: Physical Regulation: Tissue Perfusion, Cerebral; Alteration or Risk of Goal: Complications related to the disease process, condition or treatment will be avoided or minimized Outcome: Progressing Problem: Patient Specific Problem: Tissue Perfusion, Cerebral; Alteration or Risk of Goal: Patient Specific Outcome Outcome: Progressing * Yissel Duarte RN - 05/22/2025 5:09 PM EDT ED RN HANDOFF (All Hart Below Must Be Completed) Reason/Diagnosis for Admission:Transient Neurological Symptoms Type of Admission: [] Medsurg, [x] Telemetry Already in a Hospital Bed: [] Yes / [x] No Room Considerations/Precautions (ex: fever, diarrhea, or any infectious concerns): [] Yes / [x] No Gantry Rigger: [x] Yes / [] No If YES, Cardiac Rhythm: [] NSR, [x] SB, [] ST, [] A-FIB, [] A-Flutter, [] Pacemaker, [] 1st Degree HB, [] 2nd Degree HB, [] 3rd Degree HB Reason for Gantry Rigger: stroke rule out VS: Visit Vitals BP 108/63 (BP Location: Right arm, Patient Position: Lying) Pulse 53 Temp 36.6 ??C (97.9 ??F) (Oral) Resp 18 SpO2 98% Current Mental Status: A/O x [x]4, []3, []2, []1 Current Ambulation Status: ambulatory independently IV Access: [x] Yes / [] No Field IV present: [] Yes / [x] No Hx of Violence: [] Yes / [x] No / [] Unknown Fall Risk:[] Yes / [x] No Yellow Bracelet Applied [] Yes / [x] No Yellow Socks Applied [] Yes / [x] No Patient Belongings inventoried and BL completed: [x] Yes / [] No Patient belongings stored in the security closet: [] Yes (If Yes please supply Security bag #): [x] No Patient Medications stored in Pharmacy: [] Yes (If Yes please supply Medication Security bag #): [x] No ED Summary of Care: pt to ed reports numbness and tingling to right arm on and off for a few months. Worse since last night. CT head negative NIH Stroke Scale 0. Awaiting MRI. Past medical history of ht, dm, high cholesterol Submitted by and Phone Extension: [id number] Yissel * Yissel Duarte RN - 05/22/2025 4:03 PM EDT NURSING SWALLOW SCREEN Exclusing Criteria: (choose one) exclusion criteria: No Exclusion Criteria - Proceed to 3 oz water trial Please Note: Only proceed with screen if 'No exclusion criteria' is selected. If 'no risk factors' selected proceed with diet per order. This is for someone with No aspiration risk factor. Stroke pts ARE a risk factor. If any exclusion criteria selected (except for 'No Risk Foctors' or 'No Exclusion Criteria') order Swallowing Evaluation /FEES by Speech /Language Pathologist. Screen may be repeated if patient shows clinical improvement (Clinical improvement is defined as patient not showing signs of any exclusion criteria. Assessment (3 oz Water Swallow Challenge): Pass/Fail: Pass Perform Water Swallow Challenge and Document Pass/Fail Instructions for completing water swallow challenge >Sit patient upright 80-90 degrees > Patients with HOB elevated 30-80 degrees are eligible for aspiration screen >Ask patient to drink 3 oz water (90 ml) from cup or through straw in sequential swallows without stopping (cup or straw can be held by patient or staff) >Assess for coughing, choking, or cleonng throat during swallowing immediately after completion of drinking Pass: Able to drink 3 ounces of i-rater with sequential swallows without coughing, clearing throat,or change in vocal quality during and / or immediately after. Notify MD of results and obtain diet order Fail: Inability to perform sequential swallows Cough, clearing throat, or change in vocal quality during and/or immediately after drinking. Notify MD of results Keep NPO including medication. Order Swallov Evaluation / FEES by Speech / Language Pathologist. Yissel Duarte RN * Stephanie Castorena - 05/22/2025 3:41 PM EDT Images from the original note were not included. Medication History Director [employer] [facility]1965[facility] by a Medication Historian and the home med list has been updated. History obtained from conversation with: Patient Additional Source(s) of History: Dispense history (no discrepancy between med list and fill history) []Updated Patient Preferred Pharmacy The Patient's Home Medications include: HOME MEDICATIONS INSTRUCTIONS albuterol HFA (PROAIR HFA ; PROVENTIL HFA ; VENTOLIN HFA) 90 mcg/actuation inhaler atorvastatin (LIPITOR) 10 mg tablet Take 1 tablet (10 mg total) by mouth 1 (one) time each day after lunch. DULoxetine (CYMBALTA) [address] capsule Take 1 capsule (60 mg total) by mouth 1 (one) time each day. Gemtesa 75 mg tablet tablet Take 1 tablet (75 mg total) by mouth 1 (one) time each day. hydroCHLOROthiazide 12.5 mg tablet Take 1 tablet (12.5 mg total) by mouth 1 (one) time each day. meloxicam (MOBIC) 15 mg tablet Take 0.5 tablets (7.5 mg total) by mouth 1 (one) time each day if needed for mild pain. metoprolol succinate (TOPROL-XL) 25 mg 24 hr tablet Take 1 tablet (25 mg total) by mouth 1 (one) time each day. Thank you, Stephanie Castorena Medication Historian W: [phone] * Ottoniel Rodriguez MD - 05/22/2025 12:42 PM EDT STROKE ALERT! Stroke team response time 12:29pm 05/22/25 HPI 60yo F with hx of HTN, DM, HLD presents with numbness and weakness right arm since last night whichstarted at 10pm. Also mentioned transient vision deficit, numbness of lips. Some reports say symptoms have been going on for month. Nihss 0 SBP 180s and FS 103 CT head: no hemorrhage early ischemic changes. CTA head and neck: No LVO. Not a thrombolytic candidate due to onset of symptoms more than 4.5hr, nihss 0, non-debilitating symptoms. Not a thrombectomy candidate due to lack of acute large vessel occlusion, also presence of low non debilitating nihss, nihss 0. Risks outweigh benefits Plan: -q4hr neurochecks and tele -hydrate as tolerated -npo until bedside nursing swallow eval. -asa 325mg po or 300mg pr once -MRI brain without contrast -permissive blood pressure less than 220/120. Keep MAP >65 -please contact Tele neurology provider for further management and workup Ottoniel Rodriguez MD Vascular neurology * Lakeisha Wheeler RN - 05/22/2025 12:09 PM EDT Pt stating she has left arm numbness and heaviness for months intermittently- this episode started last night. Arm feels heavy with cramping pains. C/o blurry vision * Evelin Brannon RN - 05/22/2025 12:05 PM EDT Vitals, ht, wt, safety questions Evelin Brannon RN 05/22/251204 * Evelin Brannon RN - 05/22/2025 11:59 AM EDT Ems reports pt is coming from outpatient banner appt where she is c/op left arm numbness x months. Moving all extremities equal and appropriately. * Bryon Morgan MD - 05/22/2025 11:50 AM EDT HPI Chief Complaint Patient presents with Extremity Weakness HPI delinquency prevention social worker Irma used during interview Patient is a 60-year-old female with history of hypertension, hyperlipidemia, diabetes, reported heart problems presenting with left upper extremity weakness and changes sensation since 10 PM last night which was her last known normal. She also complaining of numbness to her lips. Patient states she is having difficulty lifting it at home she also had a brief episode of bilateral blurry vision that has since resolved. Patient is not on any anticoagulation agents. Patient takes nothing at home for diabetes at this time. Denies history of stroke. No data recorded Patient History Medical History[1] Surgical History[2] Family History[3] Social History Tobacco Use Smoking status: Not on file Smokeless tobacco: Not on file Substance Use Topics Alcohol use: Not on file Drug use: Not on file Review of Systems Review of Systems Physical Exam ED Triage Vitals 05/22/25 1208 Temp Heart Rate Resp BP 36.9 ??C (98.4 ??F) 58 18 (!) 183/80 SpO2 Temp Source Heart Rate Source Patient Position 100 % Oral Monitor Sitting BP Location FiO2 (%) Right arm -- Physical Exam Vitals reviewed Pulse ox interpreted by me: Normal on room air - General: Adult, awake & alert, resting comfortably, no acute distress - HEENT: grossly NC/AT, PERRLA, EOMI, OP clear without exudates or erythema, MMM - Neck: Moving normally. No obvious deformities. No tenderness - Pulm: Good inspiratory effort. CTAB. Normal work of breathing on Room Air - CV: Regular rate, regular rhythm. No murmurs/rubs appreciated. - Chest wall: No chest wall bruising or lesions. - Abd/GI: Soft, ND. NTTP, no rebound or guarding. - Back/Flanks: No skin findings. No tenderness. - MSK: Radial and DP pulses 2+ bilaterally. No lower extremity edema. - Neuro: Alert. Grossly oriented. Normal fluent speech. Moves all extremities well. Grossly no acute focal exam findings. - Derm: Warm and dry. No rashes noted. - Psych: Calm, cooperative, appropriate Additional findings:_ - Neuro: GCS E: 4 V: 5 M: 6 total: 15. CN II-XII grossly in tact. No facial droop, normal speech. 5/5 equal strength and sensation to light touch intact x all 4 extremities. Normal eepxoi-aqxn-unrhabx/l. No pronator drift. Normal ambulation. Grossly non-focal exam. ED Course & MDM ED Course as of 05/22/25 1451 [facility] May 22, 2025 1237 I discussed patient with stroke neurologist Dr. Rodriguez, he recommends patient is not a thrombolytic candidate, obtain CT head, CT angio head and neck, brain MRI, admit to medicine, if everything is negative give dose of aspirin 324 mg p.o. [RT] 1355 CT Head Stroke wo Contrast IMPRESSION: NO ACUTE INTRACRANIAL ABNORMALITY. [RT] 1355 CT Angio Head/Neck Stroke wo and/or w Contrast IMPRESSION: No evidence of hemodynamically significant stenosis in the head or neck. [RT] ED Course User Index [RT] Bryon Morgan MD Clinical Impressions as of 05/22/25 1451 Stroke-like symptom Medical Decision Making Patient is a 60-year-old female presenting with weakness and change in sensation to the left upper extremity, in addition to her lips. Reported last known normal 10 PM last night. Is also accompaniedby vision changes that has since resolved. Lypzo-fb-[id number] glucose 103. Although patient had a unremarkable neurologic exam with no objective sensory deficits and muscle strength appears to be intact given patient's subjective unilateral symptoms, language barrier, symptoms are within 24 hours of onset, a stroke code was called and patient was taken for emergent CT head, CT angio of the head and neck with contrast. Patient is not a thrombolytic/TNK candidate given outside of the 4-1/2-hour window. Risk of catastrophic brain bleed outweigh benefits of this medication at this time. Considered wide ddx for pt's presentation, including metabolic disturbance (lytes, hypo/hyperglycemia), ICH, seizure, cerebral vessel dissection or aneurysm, ACS, large brain mass, encephalitis/meningitis -- less/not c/w H&P and supportive studies today. EKG sinus bradycardia 56 bpm, normal to normal limits, normal axis, nonspecific T wave inversion inlead III, no sign of acute ischemia. No prior for comparison at this time. Labs reviewed notable for no significant electrolyte derangements, no leukocytosis, no anemia, UA negative for infection, troponin negative Patient was given 324 mg p.o. aspirin. Plan to admit to medicine for brain MRI, neurology consultation, further management and evaluation. Procedures Bryon Morgan MD 05/22/25 1239 Bryon Morgan MD 05/22/25 1320 Bryon Morgan MD 05/22/25 1452 [1] History reviewed. No pertinent past medical history. [2] History reviewed. No pertinent surgical history. [3] No family history on file. Bryon Morgan MD 05/23/25 0900 documented in this encounter Plan of Treatment Scheduled Orders Name Type Priority Associated Diagnoses Order Schedule Transthoracic echocardiogram (TTE) complete with PRN contrast, bubble, strain, and 3D order panel Echocardiography Routine Stroke-like symptom Expected: 06/06/2025, Expires: 05/23/2026 Cardiac holter monitor (<= 48 hours) Cardiac Services Routine Stroke-like symptom 1 Occurrences starting 05/23/2025 until 05/23/2026 Scheduled Referrals Name Type Priority Associated Diagnoses Order Schedule Ambulatory referral to Home Health Outpatient Referral Routine Stroke-like symptom 1 Occurrences starting 05/23/2025 until 05/23/2026 documented as of this encounter Procedures Procedure Name Priority Date/Time Associated Diagnosis Comments ECG ANNOTATED 05/26/2025 LIPID PANEL WITH REFLEX TO DIRECT LDL Add-On 05/23/2025 5:36 AM EDT CBC WITH AUTO DIFFERENTIAL Routine 05/23/2025 5:36 AM EDT CBC AND DIFFERENTIAL Routine 05/23/2025 5:36 AM EDT MAGNESIUM Routine 05/23/2025 5:36 AM EDT BASIC METABOLIC PANEL Routine 05/23/2025 5:36 AM EDT MR BRAIN WO CONTRAST STAT 05/22/2025 7:09 PM EDT URINALYSIS WITH REFLEX MICROSCOPIC STAT 05/22/2025 2:26 PM EDT URINALYSIS WITH REFLEX MICROSCOPIC STAT 05/22/2025 2:26 PM EDT XR CHEST 1 VIEW STAT 05/22/2025 1:[address] HEAD STROKE WO CONTRAST STAT 05/22/2025 1:[address] ANGIO HEAD/NECK STROKE WO AND/OR W CONTRAST STAT 05/22/2025 1:06 PM EDT ECG 12-LEAD STAT 05/22/2025 12:49 PM EDT TROPONIN I HIGH SENSITIVITY STAT 05/22/2025 12:38 PM EDT CBC WITH AUTO DIFFERENTIAL STAT 05/22/2025 12:38 PM EDT ACTIVATED PARTIAL THROMBOPLASTIN TIME STAT 05/22/2025 12:38 PM EDT PROTHROMBIN TIME WITH INR STAT 05/22/2025 12:38 PM EDT CBC AND DIFFERENTIAL STAT 05/22/2025 12:38 PM EDT MAGNESIUM STAT 05/22/2025 12:38 PM EDT BASIC METABOLIC PANEL STAT 05/22/2025 12:38 PM EDT POCT GLUCOSE BLOOD Routine 05/22/2025 12 :30 PM EDT documented in this encounter Results * ECG-Annotated (05/26/2025) us Provider Onbase ECG ORDERABLES Final Result * Lipid panel with reflex to direct LDL (05/23/2025 5:36 AM EDT) Cholesterol 172 0 - 200 mg/dL LAB CHEMISTRY METHOD 05/23/2025 3:57 PM EDT [facility] Triglycerides 69 0 - 150 mg/dL LAB CHEMISTRY METHOD 05/23/2025 3:57 PM EDT [facility] HDL 63 >=40 mg/dL LAB CHEMISTRY METHOD 05/23/2025 3:57 PM EDT [facility] LDL Calculated 95 0 - 100 mg/dL LAB CHEMISTRY METHOD 05/23/2025 3:57 PM EDT [facility] Comment:Estimated LDL Calcul ated using equation: Total cholesterol - HDL cholesterol - (Triglycerides/5) VLDL Cholesterol Jay 13.8 mg/dL LAB CHEMISTRY METHOD 05/23/2025 3:57 PM EDT [facility] Non HDL Chol. (LDL+VLDL) 109 <145 mg/dL LAB CHEMISTRY METHOD 05/23/2025 3:57 PM EDT [facility] Chol/HDL Ratio 2.7 0.0 - 4.4 LAB CHEMISTRY METHOD 05/23/2025 3:57 PM EDT [facility] Blood Venous blood specimen / Unknown Venipuncture / Unknown 05/23/2025 5:36 AM EDT 05/23/2025 6:54 AM EDT Marcelo Barnes MD LAB BLOOD ORDERABLES F inal Result [facility] [address] [place] [address], [place] [phone] * (ABNORMAL) CBC auto differential (05/23/2025 5:36 AM EDT) [facility] WBC 5.4 4.8 - 10.8 K/mcL LAB HEMETOLOGY METHOD 05/23/2025 7:06 AM [facility] RBC 4.10 3.80 - 4.80 M/mcL LAB HEMETOLOGY METHOD 05/23/2025 7:06 AM [facility] Hemoglobin 12.7 11.5 - 16.0 g/dL LAB HEMETOLOGY METHOD 05/23/2025 7:06 AM [facility] Hematocrit 38.9 35.0 - 47.0 % LAB HEMETOLOGY METHOD 05/23/2025 7:06 AM [facility] MCV 94.6 79.0 - 98.0 FL LAB HEMETOLOGY METHOD 05/23/2025 7:06 AM [facility] MCH 30.9 27.0 - 32.0 pcg LAB HEMETOLOGY METHOD 05/23/2025 7:06 AM [facility] MCHC 32.6 32.0 - 37.0 g/dL LAB HEMETOLOGY METHOD 05/23/2025 7:06 AM [facility] RDW 12.3 11.0 - 15.0 % LAB HEMETOLOGY METHOD 05/23/2025 7:06 AM [facility] Platelets 219 130 - 400 K/mcL LAB HEMETOLOGY METHOD 05/23/2025 7:06 AM [facility] MPV 11.7(H) 7.0 - 11.0 FL LAB HEMETOLOGY METHOD 05/23/2025 7:06 AM [facility] NRBC 0.0 <1.0 % LAB HEMETOLOGY METHOD 05/23/2025 7:06 AM [facility] NRBC Absolute 0.00 <0.10 K/mcL LAB HEMETOLOGY METHOD 05/23/2025 7:06 AM [facility] Neutrophils Relative 52.8 % LAB HEMETOLOGY METHOD 05/23/2025 7:06 AM [facility] Lymphocytes Relative 33.1 % LAB HEMETOLOGY METHOD 05/23/2025 7:06 AM [facility] Monocytes Relative 9.8 % LAB HEMETOLOGY METHOD 05/23/2025 7:06 AM [facility] Eosinophils Relative 3.5 % LAB HEMETOLOGY METHOD 05/23/2025 7:06 AM [facility] Basophils Relative 0.6 % LAB HEMETOLOGY METHOD 05/23/2025 7:06 AM [facility] Immature Granulocytes Relative 0.2 % LAB HEMETOLOGY METHOD 05/23/2025 7:06 AM [facility] Neutrophils Absolute 2.86 1.50 - 7.00 K/mcL LAB HEMETOLOGY METHOD 05/23/2025 7:06 AM [facility] Lymphocytes Absolute 1.79 1.00 - 5.00 K/mcL LAB HEMETOLOGY METHOD 05/23/2025 7:06 AM [facility] Monocytes Absolute 0.53 0.20 - 1.00 K/mcL LAB HEMETOLOGY METHOD 05/23/2025 7:06 AM [facility] Eosinophils Absolute 0.19 0.00 - 0.50 K/mcL LAB HEMETOLOGY METHOD 05/23/2025 7:06 AM [facility] Basophils Absolute 0.03 0.00 - 0.20 K/mcL LAB HEMETOLOGY METHOD 05/23/2025 7:06 AM [facility] Immature Granulocytes Absolute 0.01 0.00 - 0.03 K/mcL LAB HEMETOLOGY METHOD 05/23/2025 7:06 AM EDT [facility] Blood Venous blood specimen / Unknown Venipuncture / Unknown 05/23/2025 5:36 AM EDT 05/23/2025 6:54 AM EDT us Arianna Abraham [employer] LAB BLOOD ORDERABLES Final Resu lt [facility] [address] [place] [address], [place] [phone] * Magnesium (05/23/2025 5:36 AM EDT) Magnesium 2.0 1.9 - 2.6 mg/dL LAB CHEMISTRY METHOD 05/23/2025 8:12 AM EDT [facility] Blood Venous blood specimen / Unknown Venipuncture / Unknown 05/23/2025 5:36 AM EDT 05/23/2025 6:54 AM EDT us Arianna Abraham [employer]UC[employer] LAB BLOOD ORDERABLES Final Resu lt [facility] [address] [place] [address], [place] [phone] * Basic metabolic panel (05/23/2025 5:36 AM EDT) Sodium 138 133 - 145 mmol/L LAB CHEMISTRY METHOD 05/23/2025 8:12 AM EDT [facility] Potassium 4.4 3.5 - 5.5 mmol/L LAB CHEMISTRY METHOD 05/23/2025 8:12 AM EDT [facility] Chloride 102 96 - 110 mmol/L LAB CHEMISTRY METHOD 05/23/2025 8:12 AM EDT [facility] CO2 31 21 - 32 mmol/L LAB CHEMISTRY METHOD 05/23/2025 8:12 AM EDT [facility] Anion Gap 5 3 - 11 LAB CHEMISTRY METHOD 05/23/2025 8:12 AM EDT [facility] Glucose 99 70 - 100 mg/dL LAB CHEMISTRY METHOD 05/23/2025 8:12 AM EDT [facility] BUN 21 5 - 25 mg/dL LAB CHEMISTRY METHOD 05/23/2025 8:12 AM EDT [facility] Creatinine 0.72 0.50 - 1.10 mg/dL LAB CHEMISTRY METHOD 05/23/2025 8:12 AM EDT [facility] eGFR 95 >=60 mL/min/1. 73m2 LAB CHEMISTRY METHOD 05/23/2025 8:12 AM EDT [facility] Comment:Calculation based on the Chronic Kidney Disease Epidemiology Collaboration (CKD-EPI) equation refit without adjustment for race. BUN/Creatinine Ratio 29.2 LAB CHEMISTRY METHOD 05/23/2025 8:12 AM EDT [facility] Calcium 9.5 8.5 - 10.5 mg/dL LAB CHEMISTRY METHOD 05/23/2025 8:12 AM EDT [facility] Blood Venous blood specimen / Unknown Venipuncture / Unknown 05/23/2025 5:36 AM EDT 05/23/2025 6:54 AM EDT us Arianna Abraham [employer]UCATOR LAB BLOOD ORDERABLES Final Resu lt [facility] [address] [place] [address], * MR Brain wo Contrast (05/22/2025 7:09 PM EDT) Anatomical Region Laterality Modality Head and Neck Magnetic Resonan ce 05/22/2025 7:31 PM EDT Impressions 05/22/2025 7:31 PM EDT No acute findings. This document has been electronically signed by: Narinder Andrea MD on 05/22/2025 19:31:23 Narrative 05/22/2025 7:31 PM EDT INDICATION: stroke like symptoms, weakness MR Brain without gadolinium Comparison: CT/SR - CT HEAD STROKE WO CONTRAST - 05/22/25 13:04 EDT Findings: Scattered T2/FLAIR hyperintensities throughout the subcortical and periventricular white matter, likely in keeping with chronic small vessel ischemic disease. Parenchymal volume loss with compensatory prominence of the ventricles and CSF spaces. No acute infarcts, intracranial hemorrhage, midline shift or hydrocephalus. Vascular flow voids are intact. The orbits are normal. The sinuses and mastoid air cells are clear. No focal bone lesion. Procedure Note Narinder Andrea MD - 05/22/2025 INDICATION: stroke like symptoms, weakness MR Brain without gadolinium Comparison: CT/SR - CT HEAD STROKE WO CONTRAST - 05/22/25 13:04 EDT Findings: Scattered T2/FLAIR hyperintensities throughout the subcortical and periventricular white matter, likely in keeping with chronic smallvessel ischemic disease. Parenchymal volume loss with compensatory prominenceof the ventricles and CSF spaces. No acute infarcts, intracranialhemorrhage, midline shift or hydrocephalus. Vascular flow voids are intact. The orbits are normal. The sinuses and mastoid air cells are clear. No focal bone lesion. IMPRESSION: No acute findings. This document has been electronically signed by: Narinder Andrea MD on 05/22/2025 19:31:23 Arianna Abraham NP [facility]ED[place] Final Result * Urinalysis with reflex microscopic (05/22/2025 2:26 PM EDT) Specific [place] Urine 1.026 1.003 - 1.030 LAB URINALYSIS - AUTOMATED METHOD 05/22/2025 2:49 PM EDT [facility] pH, Urine 6.5 5.0 - 8.0 pH LAB URINALYSIS - AUTOMATED METHOD 05/22/2025 2:49 PM [facility] Leukocytes, Urine Negative Negative LAB URINALYSIS - AUTOMATED METHOD 05/22/2025 2:49 PM [facility] Nitrite, Urine Negative Negative LAB URINALYSIS - AUTOMATED METHOD 05/22/2025 2:49 PM [facility] Protein, Urine Negative <=Trace mg/dL LAB URINALYSIS - AUTOMATED METHOD 05/22/2025 2:49 PM EDT [facility] Glucose, Urine Negative Negative mg/dL LAB URINALYSIS - AUTOMATED METHOD 05/22/2025 2:49 PM EDT [facility] Ketones, Urine Negative Negative mg/dL LAB URINALYSIS - AUTOMATED METHOD 05/22/2025 2:49 PM EDT [facility] Urobilinogen, Urine 0.2 0.2 - 1.0 mg/dL LAB URINALYSIS - AUTOMATED METHOD 05/22/2025 2:49 PM EDT [facility] Bilirubin, Urine Negative Negative LAB URINALYSIS - AUTOMATED METHOD 05/22/2025 2:49 PM EDT [facility] Blood, Urine Negative Negative LAB URINALYSIS - AUTOMATED METHOD 05/22/2025 2:49 PM EDT [facility] Urine Urine specimen obtained by clean catch procedure / Unknown Non-blood Collection / Unknown 05/22/2025 2:26 PM EDT 05/22/2025 2:43 PM EDT us Bryon Morgan MD LAB URINE ORDERABLES Final Resul t [facility] [address] [place] [address], * XR Chest 1 View (05/22/2025 1:52 PM EDT) Anatomical Region Laterality Modality Body Radiographic Elizabeth ging 05/22/2025 2:58 PM EDT Impressions 05/22/2025 2:58 PM EDT FINDINGS/IMPRESSION: Hypoventilatory examination with bronchovascular crowding. Possible mild pulmonary congestion or atypical infectious/inflammatory process not excluded. Borderline heart size. Degenerative osseous changes. -------- FINAL REPORT -------- Dictated By: Lynda De Oliveira Dictated Date: 05/22/2025 14:58 ET Assigned Physician: Lynda De Oliveira Reviewed and Electronically Signed By: Lynda De Oliveira Signed Date: 05/22/2025 14:58 ET Workstation ID: [id number] Transcribed By: Self Edit Transcribed Date: 05/22/2025 14:58 ET Narrative 05/22/2025 2:58 PM EDT XR CHEST 1 VIEW INDICATION: stroke like symptoms TECHNIQUE: XR CHEST 1 VIEW COMPARISON: None Procedure Note Lynda De Oliveira MD - 05/22/2025 XR CHEST 1 VIEW INDICATION: stroke like symptoms TECHNIQUE: XR CHEST 1 VIEW COMPARISON: None IMPRESSION: FINDINGS/IMPRESSION: Hypoventilatory examination with bronchovascularcrowding. Possible mild pulmonary congestion or atypicalinfectious/inflammatory process not excluded. Borderline heart size.Degenerative osseous changes. -------- FINAL REPORT -------- Dictated By: Lynda De Oliveira Dictated Date: 05/22/2025 14:58 ET Assigned Physician: Lynda De Oliveira Reviewed and Electronically Signed By: Lynda De Oliveira Signed Date: 05/22/2025 14:58 ET Workstation ID: [id number] Transcribed By: Self Edit Transcribed Date: 05/22/2025 14:58 ET Bryon Morgan MD IMG XR PROCEDURES Final Result * CT Angio Head/Neck Stroke wo and/or w Contrast (05/22/2025 1:06 PM EDT) Anatomical Region Laterality Modality Head and Neck Computed Tomogra phy 05/22/2025 1:29 PM EDT Impressions 05/22/2025 1:29 PM EDT No evidence of hemodynamically significant stenosis in the head or neck. -------- FINAL REPORT -------- Dictated By: Lynda De Oliveira Dictated Date: 05/22/2025 13:29 ET Assigned Physician: Lynda De Oliveira Reviewed and Electronically Signed By: Lynda De Oliveira Signed Date: 05/22/2025 13:29 ET Workstation ID: [id number] Transcribed By: Self Edit Transcribed Date: 05/22/2025 13:29 ET Narrative 05/22/2025 1:29 PM EDT PROCEDURE: CTA HEAD AND NECK INDICATION: left arm weakness TECHNIQUE: CTA of the head and neck with intravenous contrast. Multiplanar reformats. The examination was performed utilizing dose reduction techniques.3-D or MIP images were produced with postprocessing on an independent computer workstation. 90cc Omnipaque 370 injected. Scan was analyzed using [employer] AI based computer aided triage software. Total DLP: 2629 mGy/cm COMPARISON: No priors available. FINDINGS: Noncon Brain: Dictated separately CTA Neck: There is a left-sided aortic arch. Great vessels are patent with conventional anatomy. Common carotid and internal carotid arteries are patent in the neck. Cervical vertebral arteries are patent. Visualized lung apices are clear. Soft tissues of the neck are normal. CTA Head: Intracranial portions of the internal carotid arteries are patent. Proximal middle and anterior circulation is patent. Vertebrobasilar system is patent. Proximal printed circuit board panels trimmer are patent. Major dural venous sinuses opacify normally with contrast. Extracranial structures are unremarkable. Degenerative changes in the bones. Procedure Note Lynda De Oliveira MD - 05/22/2025 PROCEDURE: CTA HEAD AND NECK INDICATION: left arm weakness TECHNIQUE: CTA of the head and neck with intravenous contrast. Multiplanarreformats. The examination was performed utilizing dose reductiontechniques.3-D or MIP images were produced with postprocessing on anindependent computer workstation. 90cc Omnipaque 370 injected. Scan wasanalyzed using [employer] AI based computer aided triage software. Total DLP: 2629 mGy/cm COMPARISON: No priors available. FINDINGS: Noncon Brain: Dictated separately CTA Neck: There is a left-sided aortic arch. Great vessels are patent withconventional anatomy. Common carotid and internal carotid arteries arepatent in the neck. Cervical vertebral arteries are patent. Visualized lung apices are clear. Soft tissues of the neck are normal. CTA Head: Intracranial portions of the internal carotid arteries are patent. Proximal middle and anterior circulation is patent. Vertebrobasilar system is patent. Proximal printed circuit board panels trimmer are patent. Major dural venous sinuses opacify normally with contrast. Extracranial structures are unremarkable. Degenerative changes in thebones. IMPRESSION: No evidence of hemodynamically significant stenosis in the head or neck. -------- FINAL REPORT -------- Dictated By: Lynda De Oliveira Dictated Date: 05/22/2025 13:29 ET Assigned Physician: Lynda De Oliveira Reviewed and Electronically Signed By: Lynda De Oliveira Signed Date: 05/22/2025 13:29 ET Workstation ID: [id number] Transcribed By: Self Edit Transcribed Date: 05/22/2025 13:29 ET Bryon Morgan MD IM CT PROCEDURES Final Result * CT Head Stroke wo Contrast (05/22/2025 1:06 PM EDT) Anatomical Region Laterality Modality Head and Neck Computed Tomogra phy 05/22/2025 1:23 PM EDT Impressions 05/22/2025 1:26 PM EDT NO ACUTE INTRACRANIAL ABNORMALITY. Findings communicated to Dr. Morgan at approximately 1:23PM via secure text. -------- FINAL REPORT -------- Dictated By: Lynda De Oliveira Dictated Date: 05/22/2025 13:23 ET Assigned Physician: Lynda De Oliveira Reviewed and Electronically Signed By: Lynda De Oliveira Signed Date: 05/22/2025 13:26 ET Workstation ID: [id number] Transcribed By: Self Edit Transcribed Date: 05/22/2025 13:23 ET Narrative 05/22/2025 1:26 PM EDT PROCEDURE: HEAD CT INDICATION: left arm weakness TECHNIQUE: CT of the head without intravenous contrast. Multiplanar reformats. The examination was performed utilizing dose reduction techniques. Total DLP 809 COMPARISON: No priors available. FINDINGS: No acute territorial infarct, mass effect, or intracranial hemorrhage. No significant white matter disease No hydrocephalus. Visualized paranasal sinuses are clear. Mastoid air cells are clear. No calvarial fracture. Procedure Note Lynda De Oliveira MD - 05/22/2025 PROCEDURE: HEAD CT INDICATION: left arm weakness TECHNIQUE: CT of the head without intravenous contrast. Multiplanarreformats. The examination was performed utilizing dose reductiontechniques. Total DLP 809 COMPARISON: No priors available. FINDINGS: No acute territorial infarct, mass effect, or intracranial hemorrhage. No significant white matter disease No hydrocephalus. Visualized paranasal sinuses are clear. Mastoid air cells are clear. No calvarial fracture. IMPRESSION: NO ACUTE INTRACRANIAL ABNORMALITY. Findings communicated to Dr. Morgan at approximately 1:23PM via securetext. -------- FINAL REPORT -------- Dictated By: Lynda De Oliveira Dictated Date: 05/22/2025 13:23 ET Assigned Physician: Lynda De Oliveira Reviewed and Electronically Signed By: Lynda De Oliveira Signed Date: 05/22/2025 13:26 ET Workstation ID: [id number] Transcribed By: Self Edit Transcribed Date: 05/22/2025 13:23 ET Bryon Morgan MD IMG CT PROCEDURES Final Result * Electrocardiogram, 12 lead (05/22/2025 12:49 PM EDT) [facility] Ventricular Rate ECG 56 BPM GEMUSE Atrial Rate 56 BPM GEMUSE P-R Interval 158 ms GEMUSE QRS Duration 78 ms GEMUSE Q-T Interval 432 ms GEMUSE QTc 416 ms GEMUSE P Wave [place] -2 degrees GEMUSE R [place] 18 degrees GEMUSE T [place] 14 degrees GEMUSE ECG Interpretation Sinus bradycardia Otherwise normal ECG No previous ECGs available Confirmed by TREVA KINCAID ([id number]) on 05/22/2025 5:47:39 PM GEMUSE 05/22/2025 12:4 9 PM EDT 05/22/2025 5:47 PM EDT Bryon Morgan MD ECG ORDERABLES Final Result GEMUSE * (ABNORMAL) CBC auto differential (05/22/2025 12:38 PM EDT) [facility] WBC 6.0 4.8 - 10.8 K/mcL LAB HEMETOLOGY METHOD 05/22/2025 1:04 PM EDT [facility] RBC 4.30 3.80 - 4.80 M/mcL LAB HEMETOLOGY METHOD 05/22/2025 1:04 PM EDT [facility] Hemoglobin 13.7 11.5 - 16.0 g/dL LAB HEMETOLOGY METHOD 05/22/2025 1:04 PM EDT [facility] Hematocrit 40.8 35.0 - 47.0 % LAB HEMETOLOGY METHOD 05/22/2025 1:04 PM EDT [facility] MCV 94.4 79.0 - 98.0 FL LAB HEMETOLOGY METHOD 05/22/2025 1:04 PM [facility] MCH 31.7 27.0 - 32.0 pcg LAB HEMETOLOGY METHOD 05/22/2025 1:04 PM [facility] MCHC 33.6 32.0 - 37.0 g/dL LAB HEMETOLOGY METHOD 05/22/2025 1:04 PM [facility] RDW 12.1 11.0 - 15.0 % LAB HEMETOLOGY METHOD 05/22/2025 1:04 PM [facility] Platelets 228 130 - 400 K/mcL LAB HEMETOLOGY METHOD 05/22/2025 1:04 PM [facility] MPV 11.6(H) 7.0 - 11.0 FL LAB HEMETOLOGY METHOD 05/22/2025 1:04 PM [facility] NRBC 0.0 <1.0 % LAB HEMETOLOGY METHOD 05/22/2025 1:04 PM [facility] NRBC Absolute 0.00 <0.10 K/mcL LAB HEMETOLOGY METHOD 05/22/2025 1:04 PM [facility] Neutrophils Relative 52.8 % LAB HEMETOLOGY METHOD 05/22/2025 1:[facility] Lymphocytes Relative 33.7 % LAB HEMETOLOGY METHOD 05/22/2025 1:04 PM [facility] Monocytes Relative 9.5 % LAB HEMETOLOGY METHOD 05/22/2025 1:04 PM [facility] Eosinophils Relative 3.0 % LAB HEMETOLOGY METHOD 05/22/2025 1:04 PM EDT [facility] Basophils Relative 0.8 % LAB HEMETOLOGY METHOD 05/22/2025 1:04 PM EDT [facility] Immature Granulocytes Relative 0.2 % LAB HEMETOLOGY METHOD 05/22/2025 1:04 PM EDT [facility] Neutrophils Absolute 3.16 1.50 - 7.00 K/mcL LAB HEMETOLOGY METHOD 05/22/2025 1:04 PM EDT [facility] Lymphocytes Absolute 2.02 1.00 - 5.00 K/mcL LAB HEMETOLOGY METHOD 05/22/2025 1:04 PM EDT [facility] Monocytes Absolute 0.57 0.20 - 1.00 K/mcL LAB HEMETOLOGY METHOD 05/22/2025 1:04 PM EDT [facility] Eosinophils Absolute 0.18 0.00 - 0.50 K/mcL LAB HEMETOLOGY METHOD 05/22/2025 1:04 PM EDT [facility] Basophils Absolute 0.05 0.00 - 0.20 K/mcL LAB HEMETOLOGY METHOD 05/22/2025 1:04 PM EDT [facility] Immature Granulocytes Absolute 0.01 0.00 - 0.03 K/mcL LAB HEMETOLOGY METHOD 05/22/2025 1:04 PM EDT [facility] Blood Venous blood specimen / Unknown Venipuncture / Unknown 05/22/2025 12:38 PM EDT 05/22/2025 12:49 PM EDT us Bryon Morgan MD LAB BLOOD ORDERABLES Final Resul t [facility] [address] [place] [address], * Troponin I high sensitivity (NOW) (05/22/2025 12:38 PM EDT) High Sensitivity Troponin I 6 <=54 ng/L LAB CHEMISTRY METHOD 05/22/2025 2:05 PM EDT [facility] Blood Venous blood specimen / Unknown Venipuncture / Unknown 05/22/2025 12:38 PM EDT 05/22/2025 12:49 PM EDT Narrative [facility] - 05/22/2025 2:05 PM EDT High levels of biotin in samples may falsely decrease hsTroponin values. Use caution when interpreting hsTroponin results in patients taking biotin who exhibit renal impairment (eGFR <60) or in patients taking more than 20 mg/day of biotin. us Bryon Morgan MD LAB BLOOD ORDERABLES Final Resul t Performing Organization Address City/[facility]/ZIP Co de Phone Number [facility] [address] [place] [address], * Magnesium (05/22/2025 12:38 PM EDT) [facility] Magnesium 2.0 1.9 - 2.6 mg/dL LAB CHEMISTRY METHOD 05/22/2025 2:18 PM EDT [facility] Blood Venous blood specimen / Unknown Venipuncture / Unknown 05/22/2025 12:38 PM EDT 05/22/2025 12:49 PM EDT us Bryon Morgan MD LAB BLOOD ORDERABLES Final Resul t [facility] [address] [place] [address], [place] [phone] * Activated partial thromboplastin time (05/22/2025 12:38 PM EDT) [facility] aPTT 33.7 24.1 - 39.3 sec LAB COAGULATION METHOD 05/22/2025 1:13 PM EDT [facility] Blood Venous blood specimen / Unknown Venipuncture / Unknown 05/22/2025 12:38 PM EDT 05/22/2025 12:49 PM EDT us Bryon Morgan MD LAB BLOOD ORDERABLES Final Resul t Performing Organization Address [facility]/ZIP Co de Phone Number [facility] [address] [place] [address], [place] [phone] * Prothrombin time with INR (05/22/2025 12:38 PM EDT) [facility] Protime 12.2 10.6 - 13.9 sec LAB COAGULATION METHOD 05/22/2025 1:13 PM EDT [facility] INR 1.0 LAB COAGULATION METHOD 05/22/2025 1:13 PM EDT [facility] Blood Venous blood specimen / Unknown Venipuncture / Unknown 05/22/2025 12:38 PM EDT 05/22/2025 12:49 PM EDT us Bryon Morgan MD LAB BLOOD ORDERABLES Final Resul t Performing Organization Address [facility]/ZIP Co de Phone Number [facility] [address] [place] [address], [place] [phone] * (ABNORMAL) Basic metabolic panel (05/22/2025 12:38 PM EDT) [facility] Sodium 135 133 - 145 mmol/L LAB CHEMISTRY METHOD 05/22/2025 2:18 PM EDT [facility] Potassium 3.8 3.5 - 5.5 mmol/L LAB CHEMISTRY METHOD 05/22/2025 2:18 PM EDT [facility] Chloride 101 96 - 110 mmol/L LAB CHEMISTRY METHOD 05/22/2025 2:18 PM EDT [facility] CO2 26 21 - 32 mmol/L LAB CHEMISTRY METHOD 05/22/2025 2:18 PM EDT [facility] Anion Gap 8 3 - 11 LAB CHEMISTRY METHOD 05/22/2025 2:18 PM EDT [facility] Glucose 107(H) 70 - 100 mg/dL LAB CHEMISTRY METHOD 05/22/2025 2:18 PM EDT [facility] BUN 21 5 - 25 mg/dL LAB CHEMISTRY METHOD 05/22/2025 2:18 PM EDT [facility] Creatinine 0.61 0.50 - 1.10 mg/dL LAB CHEMISTRY METHOD 05/22/2025 2:18 PM EDT [facility] eGFR 102 >=60 mL/min/1. 73m2 LAB CHEMISTRY METHOD 05/22/2025 2:18 PM EDT [facility] Comment:Calculation based on the Chronic Kidney Disease Epidemiology Collaboration (CKD-EPI) equation refit without adjustment for race. BUN/Creatinine Ratio 34.4 LAB CHEMISTRY METHOD 05/22/2025 2:18 PM EDT [facility] Calcium 9.7 8.5 - 10.5 mg/dL LAB CHEMISTRY METHOD 05/22/2025 2:18 PM EDT [facility] Blood Venous blood specimen / Unknown Venipuncture / Unknown 05/22/2025 12:38 PM EDT 05/22/2025 12:49 PM EDT us Bryon Morgan MD LAB BLOOD ORDERABLES Final Resul t [facility] [address] [place] [address], * (ABNORMAL) POCT Glucose, blood (05/22/2025 12:30 PM EDT) Glucose POCT 103(H) 70 - 100 mg/dL 05/22/2025 12:30 PM EDT [facility] Blood Capillary blood specimen / Unknown 05/22/2025 12:30 PM EDT 05/22/2025 12:32 PM EDT us Bryon Morgan MD LAB POINT OF CARE TE ST DOCKED DEVICE UNSOLICITED RESULTS Final Result [facility] [address] [place] [address], documented in this encounter Visit Diagnoses Diagnosis Transient neurological symptoms- Primary Stroke-like symptom documented in this encounter Admitting Diagnoses Diagnosis Transient neurological symptoms documented in this encounter Administered Medications Inactive Administered Medications - up to 3 most recent administrations Medication Order MAR Action Action Date Dose Rate Site acetaminophen (TYLENOL) tablet 650 mg 650 mg, oral, Every 6 hours PRN, mild pain, fever - temperature GREATER than 38 C (100.4 F), Starting on Sara 05/22/25 at 1651 Given 05/23/2025 8:21 AM EDT 650 mg aspirin chewable tablet 324 mg 324 mg, oral, Once, On Sara 05/22/25 at 1452, For 1 dose Given 05/22/2025 3:07 PM EDT 324 mg aspirin EC tablet 81 mg 81 mg, oral, Daily, First dose on Mon05/23/25 at 0900, Do not crush, chew, or split. Given 05/23/2025 8:21 AM EDT 81 mg atorvastatin (LIPITOR) tablet 40 mg 40 mg, oral, Daily after lunch, First dose on Mon05/23/25 at 1230 Given 05/23/2025 11:45 AM EDT 40 mg DULoxetine (CYMBALTA) DR capsule 60 mg 60 mg, oral, Daily, First dose on Mon05/23/25 at 0900, Do not crush or chew. Given 05/23/2025 8:21 AM EDT 60 mg hydroCHLOROthiazide (HYDRODIURIL) tablet 12.5 mg 12.5 mg, oral, Daily, First dose on Mon05/23/25 at 0900 Given 05/23/2025 8:22 AM EDT 12.5 mg iopamidoL (ISOVUE-370) 370 mg iodine /mL (76 %) injection 90 mL 90 mL, intravenous, Once in imaging, Starting on Sara 05/22/25 at 1300, For 1 dose Given 05/22/2025 1:01 PM EDT 90 mL LORazepam (ATIVAN) injection 1 mg 1 mg, intravenous, Once, On Sara 10/23/25 at 1247, For 1 dose, Prior to IV use, lorazepam injection should be DILUTED with an equal volume of compatible solution; Rate of administration should NOT exceed 2 mg/min. Given 05/22/2025 12:53 PM EDT 1 mg ondansetron (PF) (ZOFRAN) injection 4 mg 4 mg, intravenous, Every 6 hours PRN, vomiting, nausea, Starting on Sara 05/22/25 at 1652, -ONLY give IV if patient is unable to take orally. -If inadequate response within 30 minutes, proceed to next-line agent or contact provider if no further options ordered. polyethylene glycol (MIRALAX) packet 17 g 17 g, oral, Daily, First dose on Sara 05/22/25 at 1653, Bowel Regimen - for prevention of constipation sodium chloride 0.9 % flush 10 mL 10 mL, intravenous, Once, On Sara 05/22/25 at 1301, For 1 dose Given 05/22/2025 1:01 PM EDT 10 mL sodium chloride 0.9 % flush 10 mL 10 mL, intravenous, 2 times daily, First dose on Sara 05/22/25 at 2100 Given 05/23/2025 8:22 AM EDT 10 mL Given 05/22/2025 9:21 PM EDT 10 mL sodium chloride 0.9 % flush 10 mL 10 mL, intravenous, As needed, line care, Starting on Sara 05/22/25 at 1651 traZODone (DESYREL) tablet 25 mg 25 mg, oral, Once, On Sara 05/22/25 at 2215, For 1 dose Given 05/22/2025 10:35 PM EDT 25 mg documented in this encounter Historical Medications * This list may reflect changes made after this encounter. Gemtesa 75 mg tablet tablet Take 1 tablet (75 mg total) by mouth 1 (one) time each day. 05/05/2025 metoprolol succinate (TOPROL-XL) 25 mg 24 hr tablet Take 1 tablet (25 mg total) by mouth 1 (one) time each day. 04/17/2025 meloxicam (MOBIC) 15 mg tablet Take 0.5 tablets (7.5 mg total) by mouth 1 (one) time each day if needed for mild pain. 05/15/2025 hydroCHLOROthiazi de 12.5 mg tablet Take 1 tablet (12.5 mg total) by mouth 1 (one) time each day. 11/03/2021 DULoxetine (CYMBALTA) [address] capsule Take 1 capsule (60 mg total) by mouth 1 (one) time each day. 05/21/2025 atorvastatin (LIPITOR) 10 mg tablet Take 1 tablet (10 mg total) by mouth 1 (one) time each day after lunch. 11/03/2021 albuterol HFA (PROAIR HFA ; PROVENTIL HFA ; VENTOLIN HFA) 90 mcg/actuation inhaler 02/07/2025 added in this encounter Active and Recently Administered Medications Times are shown in EDT. Scheduled Medication Order 05/21/2025 05/22/2025 05/23/2025 aspirin chewable tablet 324 mg (COMPLETED) 324 mg, oral, Once, On Sara 05/22/25 at 1452, For 1 dose 1507 (Given - Provider: Melinda Noyola RN) aspirin EC tablet 81 mg 81 mg, oral, Daily, First dose on Mon05/23/25 at 0900, Do not crush, chew, or split. 0821 (Given - Provid er: Debora Mi RN) atorvastatin (LIPITOR) tablet 40 mg 40 mg, oral, Daily after lunch, First dose on Mon05/23/25 at 1230 1145 (Given - Provid er: Debora Mi RN) DULoxetine (CYMBALTA) DR capsule 60 mg 60 mg, oral, Daily, First dose on Mon05/23/25 at 0900, Do not crush or chew. 0821 (Given - Provid er: Debora Mi RN) hydroCHLOROthiazide (HYDRODIURIL) tablet 12.5 mg 12.5 mg, oral, Daily, First dose on Mon05/23/25 at 0900 0822 (Given - Provid er: Debora Mi RN) iopamidoL (ISOVUE-370) 370 mg iodine /mL (76 %) injection 90 mL (COMPLETED) 90 mL, intravenous, Once in imaging, Starting on Sara 05/22/25 at 1300, For 1 dose 1301 (Given - Provider: Mame Strong) LORazepam (ATIVAN) injection 1 mg (COMPLETED) 1 mg, intravenous, Once, On Sara 05/22/25 at 1247, For 1 dose, Prior to IV use, lorazepam injection should be DILUTED with an equal volume of compatible solution; Rate of administration should NOT exceed 2 mg/min. 1253 (Given - Provider: Melinda Noyola RN) metoprolol succinate (TOPROL-XL) 24 Hour tablet 25 mg 25 mg, oral, Daily, First dose on Mon05/23/25 at 0900, Do not crush or chew. 0824 (Not Given - Provider: Debora Mi RN - Reason: Change in vital signs - Comment: bradycardia) polyethylene glycol (MIRALAX) packet 17 g 17 g, oral, Daily, First dose on Sara 05/22/25 at 1653, Bowel Regimen - for prevention of constipation 1743 (Not Given - Provider: Melonie Brian RN - Reason: Patient/Resident/Agent refused - education provided - Comment: Patient stated she is not having any difficulty with bowel movements and will pass on Miralax today but may take it tomorrow if she feels she needs it) 0824 (Not Given - Provider: Debora Mi RN - Reason: Patient/Resident/Agent refused - education provided ) sodium chloride 0.9 % flush 10 mL (COMPLETED) 10 mL, intravenous, Once, On Sara 05/22/25 at 1301, For 1 dose 1301 (Given - Provider: Mame Strong) sodium chloride 0.9 % flush 10 mL(Linked Group 1) 10 mL, intravenous, 2 times daily, First dose on Sara 05/22/25 at 2100 2121 (Given - Provider: Suly Sauceda, KELLY) 0822 (Given - Provider: Debora Mi RN) traZODone (DESYREL) tablet 25 mg (COMPLETED) 25 mg, oral, Once, On Sara 05/22/25 at 2215, For 1 dose 2235 (Given - Provider: Suly Sauceda, KELLY) PRN Medication Order 05/21/2025 05/22/2025 05/23/2025 acetaminophen (TYLENOL) tablet 650 mg 650 mg, oral, Every 6 hours PRN, mild pain, fever - temperature GREATER than 38 C (100.4 F), Starting on Sara 05/22/25 at 1651 0821 (Given - Provid er: Debora Mi RN) albuterol 2.5 mg /3 mL (0.083 %) nebulizer solution 2.5 mg 2.5 mg, nebulization, Every 6 hours PRN, wheezing, Starting on Sara 05/22/25 at 1706 ondansetron (PF) (ZOFRAN) injection 4 mg 4 mg, intravenous, Every 6 hours PRN, vomiting, nausea, Starting on Sara 05/22/25 at 1652, -ONLY give IV if patient is unable to take orally. -If inadequate response within 30 minutes, proceed to next-line agent or contact provider if no further options ordered. sodium chloride 0.9 % flush 10 mL(Linked Group 1) 10 mL, intravenous, As needed, line care, Starting on Sara 05/22/25 at 1651 Linked Groups Order Group 1: Insert peripheral IV (CANCELED) STAT, Once, On Sara 05/22/25 at 1652, For 1 occurrence And Maintain IV access (CANCELED) Until discontinued, Starting on Sara 05/22/25 at 1652, Until Specified And Saline lock IV (CANCELED) Routine, Once, On Sara 05/22/25 at 1652, For 1 occurrence And sodium chloride 0.9 % flush 10 mLJump to med 10 mL, intravenous, 2 times daily, First dose on Sara 05/22/25 at 2100 And sodium chloride 0.9 % flush 10 mLJump to med 10 mL, intravenous, As needed, line care, Starting on Sara 05/22/25 at 1651 documented in this encounter Orders Medications Ordered That Ovi ht Not Have Been Administered Count Last Ordered Date First Ordered Date albuterol 2.5 mg /3 mL (0.08 3 %) nebulizer solution 2.5 mg 1 05/22/2025 LORazepam (ATIVAN) tablet 0.5 mg 1 05/22/20 25 metoprolol succinate (TOPROL -XL) 24 Hour tablet 25 mg 1 05/22/2025 ondansetron (PF) (ZOFRAN) injection 4 mg 1 05/22/2025 polyethylene glycol (MIRALAX) packet 17 g 1 05/22/2025 sodium chloride 0.9 % flush 10 mL 1 025 Nursing Count Last Ordered Date First Orde red Date ACTIVITY 1 05/23/2025 FOLLOW UP PRIMARY PHYSICIAN 1 05/23/2025 Admission Count Last Ordered Date First Orde red Date INITIATE OBSERVATION STATUS 1 05/22/2025 Transfer Count Last Ordered Date First Orde red Date ED TO FLOOR BED REQUEST 1 05/22/2025 Discharge Count Last Ordered Date First Orde red Date DISCHARGE PATIENT 2 05/23/2025 documented in this encounter Care Teams [place] [employer] Relationship Specialty Start Date End Date Tena Carrillo MD [address] [facility] , [address] [facility] D[facility]A: [facility] KENNEDY Ramsey PCP - General Internal Medicine 12/10/24 documented as of this encounter
--- OUTSIDE RECORDS SUMMARY | 2025-05-28 11:57 | XMS_ITS | Clinical Summary ---
Author Organization 175 [facility] Address [address] [place] [address] Phone Care Team Providers Care Investment Accounting Clerk Name Role Phone Tena Carrillo MD Primary Care Provider [phone] Allergies No known active allergies Medications albuterol HFA (PROAIR HFA ; PROVENTIL HFA ; VENTOLIN HFA) 90 mcg/actuation inhaler 5 Active atorvastatin (LIPITOR) 10 mg tablet Take 1 tablet (10 mg total) by mouth 1 (one) time each day after lunch. 2 Active DULoxetine (CYMBALTA) [address] capsule Take 1 capsule (60 mg total) by mouth 1 (one) time each day. 5 Active hydroCHLOROthia zide 12.5 mg tablet Take 1 tablet (12.5 mg total) by mouth 1 (one) time each day. 2 Active meloxicam (MOBIC) 15 mg tablet Take 0.5 tablets (7.5 mg total) by mouth 1 (one) time each day if needed for mild pain. 5 Active metoprolol succinate (TOPROL-XL) 25 mg 24 hr tablet Take 1 tablet (25 mg total) by mouth 1 (one) time each day. 5 Active Gemtesa 75 mg tablet tablet Take 1 tablet (75 mg total) by mouth 1 (one) time each day. 5 Active acetaminophen (TYLENOL) 325 mg tablet Take 2 tablets (650 mg total) by mouth every 6 (six) hours if needed for mild pain or fever - temperature GREATER than 38 C (100.4 F) for up to 10 days. 30 tablet 5 06/02/20 25 Active aspirin 81 mg EC tablet Take 1 tablet (81 mg total) by mouth 1 (one) time each day. 30 each 11 5 05/24/20 26 Active Active Problems Problem Noted Date Diagnosed Date Transient neurological symptoms 05/22/2025 HTN (hypertension) 05/22/2025 HLD (hyperlipidemia) 05/22/2025 Depressed 05/22/2025 Overactive bladder 05/22/2025 Encounters Date Type Department Care Team Description 05/22/2025 12:25 PM EDT - 05/23/2025 5:48 PM EDT Hospital Encounter [facility] B [address] [place] [address] [phone] Bryon Morgan MD Flores, Carlos M, MD Santoyo-Pachec o, Omar D, MD Stroke-like symptom (Primary Dx) Discharge Disposition: Home-Health Care Svc from Last 3 Months Medical History Medical History Date Comments HTN (hypertension) HLD (hyperlipidemia) Depression Overactive bladder Family History Medical History Relation Name Comments Liver disease Father Diabetes Mother Heart disease Mother Hypertension Mother Relation Name Status Comments Father Mother Social History Tobacco Use Types Packs/Day Years [...] care for your loved ones. For example, child therapist or elderly care for an older adult? [...] on file Sexual Orientation Not on file Obstetrics History Last Filed Vital Signs Vital Sign Reading Time Taken Comments Blood Pressure 115/62 05/23/2025 11:27 AM EDT Pulse 52 05/23/2025 11:27 AM EDT Temperature 36.3 C (97.4 F) 05/23/2025 11:27 AM EDT Respiratory Rate 18 05/23/2025 11:27 AM EDT Oxygen Saturation 100% 05/23/2025 11:27 AM EDT Inhaled Oxygen Concentration - - Weight - - Height - - Body Mass Index - - Plan of Treatment Health Maintenance Due Date Last Done Comments Breast Cancer Screening 1965 Colorectal Cancer Screening: Colonoscopy 1965 Cervical Cancer Screening: Pap Smear 02/20/1985 Pneumococcal Vaccine: 50+ Years (1 of 1 - PCV) 02/20/2014 Zoster Vaccines (1 of 2) 02/20/2014 Depression Screening 07/31/2024 HIV Screening 12/10/2024 Hepatitis C Screening 12/10/2024 Medicare Annual Wellness Visit 12/10/2024 Social Influencers of Health Screening 05/22/2026 05/22/2025 Hypertension/CHF/CAD Annual BMP Blood Test 05/23/2026 05/23/2025, 05/22/2025 DTaP,Tdap,and Td Vaccines (3 - Td or Tdap) 07/08/2026 07/08/2016, 07/07/2016 Cholesterol Screening (Lipid Panel) 05/23/2030 05/23/2025 RSV Immunization Adult Patients (1 - 1-dose 75+ series) 02/20/2039 COVID-19 Vaccine Completed 04/14/2025, 10/23/2020 Influenza Vaccine Completed 04/14/2025, , 04/19/2022, Additional history exists HIB Vaccines Aged Out No longer eligi ble based on patient's age to complete this topic HPV Vaccines Aged Out No longer eligi ble based on patient's age to complete this topic Hepatitis A Vaccines Aged Out No long er eligible based on patient's age to complete this topic Hepatitis B Vaccines Aged Out No long er eligible based on patient's age to complete this topic IPV Vaccines Aged Out No longer eligi ble based on patient's age to complete this topic MMR Vaccines Aged Out No longer eligi ble based on patient's age to complete this topic Meningococcal ACWY Vaccine Aged Out N o longer eligible based on patient's age to complete this topic Meningococcal B Vaccine Aged Out No l onger eligible based on patient's age to complete this topic RSV Immunization Patients Under 20 months Aged Out No longer eligible based on patient's age to complete this topic Varicella Vaccines Aged Out No longer eligible based on patient's age to complete this topic Procedures Procedure Name Priority Date/Time Associated Diagnosis [...] VIEW STAT 05/22/2025 1:[address] ANGIO HEAD/NECK STROKE WO AND/OR W CONTRAST STAT 05/22/2025 1:[address] HEAD STROKE WO CONTRAST STAT 05/22/2025 1:06 PM EDT ECG 12-LEAD STAT 05/22/2025 12:49 PM EDT CBC WITH AUTO DIFFERENTIAL STAT 05/22/2025 12:38 PM EDT TROPONIN I HIGH SENSITIVITY STAT 05/22/2025 12:38 PM EDT MAGNESIUM STAT 05/22/2025 12:38 PM EDT ACTIVATED PARTIAL THROMBOPLASTIN TIME STAT 05/22/2025 12:38 PM EDT PROTHROMBIN TIME WITH INR STAT 05/22/2025 12:38 PM EDT CBC AND DIFFERENTIAL STAT 05/22/2025 12:38 PM EDT BASIC METABOLIC PANEL STAT 05/22/2025 12:38 PM EDT POCT GLUCOSE BLOOD Routine 05/22/2025 12 :30 PM EDT from Last 3 Months Results * ECG-Annotated (05/26/2025) us Provider Onbase MD ECG ORDERABLES Final Result * Lipid panel with reflex to direct LDL (05/23/2025 5:36 AM EDT) Cholesterol 172 0 - 200 mg/dL LAB CHEMISTRY METHOD 05/23/2025 3:57 PM EDT [facility] Triglycerides 69 0 - 150 mg/dL LAB CHEMISTRY METHOD 05/23/2025 3:57 PM T [facility] HDL 63 >=40 mg/dL LAB CHEMISTRY METHOD 05/23/2025 3:57 PM [facility] LDL Calculated 95 0 - 100 mg/dL LAB CHEMISTRY METHOD 05/23/2025 3:57 PM T [facility] Comment:Estimated LDL Calcul ated using equation: Total cholesterol - HDL cholesterol - (Triglycerides/5) VLDL Cholesterol Jay 13.8 mg/dL LAB CHEMISTRY METHOD 05/23/2025 3:57 PM T [facility] Non HDL Chol. (LDL+VLDL) 109 <145 mg/dL LAB CHEMISTRY METHOD 05/23/2025 3:57 PM [facility] Chol/HDL Ratio 2.7 0.0 - 4.4 LAB CHEMISTRY METHOD 05/23/2025 3:57 PM [facility] Blood Venous blood specimen / Unknown Venipuncture / Unknown 05/23/2025 5:36 AM EDT 05/23/2025 6:54 AM EDT us Marcelo Barnes MD LAB BLOOD ORDERABLES F inal Result [facility] [address] [place] [address], [place] [phone] * (ABNORMAL) CBC auto differential (05/23/2025 5:36 AM EDT) Only the most recent of2 resultswithin the time period is included. WBC 5.4 4.8 - 10.8 K/mcL LAB HEMETOLOGY METHOD 05/23/2025 7:06 AM EDT [facility] RBC 4.10 3.80 - 4.80 M/mcL LAB HEMETOLOGY METHOD 05/23/2025 7:06 AM EDT [facility] Hemoglobin 12.7 11.5 - 16.0 g/dL LAB HEMETOLOGY METHOD 05/23/2025 7:06 AM EDT [facility] Hematocrit 38.9 35.0 - 47.0 % LAB HEMETOLOGY METHOD 05/23/2025 7:06 AM EDT [facility] MCV 94.6 79.0 - 98.0 FL LAB HEMETOLOGY METHOD 05/23/2025 7:06 AM EDT [facility] MCH 30.9 27.0 - 32.0 pcg LAB HEMETOLOGY METHOD 05/23/2025 7:06 AM EDT [facility] MCHC 32.6 32.0 - 37.0 g/dL LAB HEMETOLOGY METHOD 05/23/2025 7:06 AM EDT [facility] RDW 12.3 11.0 - 15.0 % LAB HEMETOLOGY METHOD 05/23/2025 7:06 AM EDT [facility] Platelets 219 130 - 400 K/mcL LAB HEMETOLOGY METHOD 05/23/2025 7:06 AM EDT [facility] MPV 11.7(H) 7.0 - 11.0 FL LAB HEMETOLOGY METHOD 05/23/2025 7:06 AM [facility] NRBC 0.0 <1.0 % LAB HEMETOLOGY METHOD 05/23/2025 7:06 AM [facility] NRBC Absolute 0.00 <0.10 K/mcL LAB HEMETOLOGY METHOD 05/23/2025 7:06 AM [facility] Neutrophils Relative 52.8 % LAB HEMETOLOGY METHOD 05/23/2025 7:06 AM [facility] Lymphocytes Relative 33.1 % LAB HEMETOLOGY METHOD 05/23/2025 7:06 AM [facility] Monocytes Relative 9.8 % LAB HEMETOLOGY METHOD 05/23/2025 7:06 AM [facility] Eosinophils Relative 3.5 % LAB HEMETOLOGY METHOD 05/23/2025 7:06 AM [facility] Basophils Relative 0.6 % LAB HEMETOLOGY METHOD 05/23/2025 7:06 AM [facility] Immature Granulocytes Relative 0.2 % LAB HEMETOLOGY METHOD 05/23/2025 7:06 AM [facility] Neutrophils Absolute 2.86 1.50 - 7.00 K/mcL LAB HEMETOLOGY METHOD 05/23/2025 7:06 AM [facility] Lymphocytes Absolute 1.79 1.00 - 5.00 K/mcL LAB HEMETOLOGY METHOD 05/23/2025 7:06 AM [facility] Monocytes Absolute 0.53 0.20 - 1.00 K/mcL LAB HEMETOLOGY METHOD 05/23/2025 7:06 AM [facility] Eosinophils Absolute 0.19 0.00 - 0.50 K/mcL LAB HEMETOLOGY METHOD 05/23/2025 7:06 AM EDT [facility] Basophils Absolute 0.03 0.00 - 0.20 K/[facility] LAB HEMETOLOGY METHOD 05/23/2025 7:06 AM EDT [facility] Immature Granulocytes Absolute 0.01 0.00 - 0.03 K/[facility] LAB HEMETOLOGY METHOD 05/23/2025 7:06 AM EDT [facility] Blood Venous blood specimen / Unknown Venipuncture / Unknown 05/23/2025 5:36 AM EDT 05/23/2025 6:54 AM EDT us Arianna Abraham NP LAB BLOOD ORDERABLES Final Resu lt Performing Organization Address [facility]/ZIP Co de Phone Number [facility] [address] [place] [address], [place] [phone] * Magnesium (05/23/2025 5:36 AM EDT) Only the most recent of2 resultswithin the time period is included. Magnesium 2.0 1.9 - 2.6 mg/dL LAB CHEMISTRY METHOD 05/23/2025 8:12 AM EDT [facility] Blood Venous blood specimen / Unknown Venipuncture / Unknown 05/23/2025 5:36 AM EDT 05/23/2025 6:54 AM EDT us Arianna Abraham NP LAB BLOOD ORDERABLES Final Resu lt Performing Organization Address City/[facility]/ZIP Co de Phone Number [facility] [address] [place] [address], [place] [phone] * Basic metabolic panel (05/23/2025 5:36 AM EDT) Only the most recent of2 resultswithin the time period is included. Sodium 138 133 - 145 mmol/L LAB CHEMISTRY METHOD 05/23/2025 8:12 AM EDT [facility] Potassium 4.4 3.5 - 5.5 mmol/L LAB CHEMISTRY METHOD 05/23/2025 8:12 AM [facility] Chloride 102 96 - 110 mmol/L LAB CHEMISTRY METHOD 05/23/2025 8:12 AM [facility] CO2 31 21 - 32 mmol/L LAB CHEMISTRY METHOD 05/23/2025 8:12 AM [facility] Anion Gap 5 3 - 11 LAB CHEMISTRY METHOD 05/23/2025 8:12 AM [facility] Glucose 99 70 - 100 mg/dL LAB CHEMISTRY METHOD 05/23/2025 8:12 AM [facility] BUN 21 5 - 25 mg/dL LAB CHEMISTRY METHOD 05/23/2025 8:12 AM [facility] Creatinine 0.72 0.50 - 1.10 mg/dL LAB CHEMISTRY METHOD 05/23/2025 8:12 AM [facility] eGFR 95 >=60 mL/min/1. 73m2 LAB CHEMISTRY METHOD 05/23/2025 8:12 AM [facility] Comment:Calculation based on the Chronic Kidney Disease Epidemiology Collaboration (CKD-EPI) equation refit without adjustment for race. BUN/Creatinine Ratio 29.2 LAB CHEMISTRY METHOD 05/23/2025 8:12 AM [facility] Calcium 9.5 8.5 - 10.5 mg/dL LAB CHEMISTRY METHOD 05/23/2025 8:12 AM [facility] Blood Venous blood specimen / Unknown Venipuncture / Unknown 05/23/2025 5:36 AM EDT 05/23/2025 6:54 AM EDT us Arianna Abraham NP LAB BLOOD ORDERABLES Final Resu lt [facility] [address] [place] [address], * MR Brain wo Contrast (05/22/2025 7:09 [...] MD on 05/22/2025 19:31:23 Arianna Abraham NP [facility] [place] PROCEDURES Final Result * Urinalysis with reflex microscopic (05/22/2025 2:26 PM EDT) Specific [place] Urine 1.026 1.003 - 1.030 LAB URINALYSIS - AUTOMATED METHOD 05/22/2025 2:49 PM EDT [facility] pH, Urine 6.5 5.0 - 8.0 pH LAB URINALYSIS - AUTOMATED METHOD 05/22/2025 2:49 PM EDT [facility] Leukocytes, Urine Negative Negative LAB URINALYSIS - AUTOMATED METHOD 05/22/2025 2:49 PM EDT [facility] Nitrite, Urine Negative Negative LAB URINALYSIS - AUTOMATED METHOD 05/22/2025 2:49 PM EDT [facility] Protein, Urine Negative <=Trace mg/dL LAB URINALYSIS - AUTOMATED METHOD 05/22/2025 2:49 PM EDT [facility] Glucose, Urine Negative Negative mg/dL LAB URINALYSIS - AUTOMATED METHOD [facility] Ketones, Urine Negative Negative mg/dL LAB URINALYSIS - AUTOMATED METHOD 05/22/2025 2:49 PM EDT [facility] Urobilinogen, Urine 0.2 0.2 - 1.0 mg/dL LAB URINALYSIS - AUTOMATED METHOD 05/22/2025 2:49 PM EDT [facility] Bilirubin, Urine Negative Negative LAB URINALYSIS - AUTOMATED METHOD 05/22/2025 2:49 PM EDT [facility] Blood, Urine Negative Negative LAB URINALYSIS - AUTOMATED METHOD 05/22/2025 2:49 PM EDT [facility] Urine Urine specimen obtained by clean catch procedure / Unknown Non-blood Collection / Unknown 05/22/2025 2:26 PM EDT 05/22/2025 2:43 PM EDT us Bryon Morgan MD LAB URINE ORDERABLES Final Resul t [facility] [address] [place] [address], [place] [phone] * XR Chest 1 View (05/22/2025 1:52 [...] Signed Date: 05/22/2025 14:58 ET Workstation ID: [id number] Transcribed By: Self Edit Transcribed Date: 05/22/2025 [...] Signed Date: 05/22/2025 14:58 ET Workstation ID: [id number] Transcribed By: Self Edit Transcribed Date: 05/22/2025 14:58 ET Bryon Morgan MD IMG XR PROCEDURES Final Result * CT Head Stroke [...] Signed Date: 05/22/2025 13:26 ET Workstation ID: [id number] Transcribed By: Self Edit Transcribed Date: 05/22/2025 [...] Signed Date: 05/22/2025 13:26 ET Workstation ID: [id number] Transcribed By: Self Edit Transcribed Date: 05/22/2025 13:23 ET Bryon Morgan MD [facility] [place] PROCEDURES Final Result * CT Angio Head/Neck [...] Signed Date: 05/22/2025 13:29 ET Workstation ID: [id number] Transcribed By: Self Edit Transcribed Date: 05/22/2025 13:29 ET Narrative 05/22/2025 1:29 PM EDT PROCEDURE: CTA HEAD AND NECK INDICATION: left arm weakness TECHNIQUE: CTA of the head and neck with intravenous contrast. Multiplanar reformats. The examination was performed utilizing dose reduction techniques.3-D or MIP images were produced with postprocessing on an independent computer workstation. 90cc Omnipaque 370 injected. Scan was analyzed using [employer] AI based computer aided triage software. [...] is patent. Vertebrobasilar system is patent. Proximal food and beverage coordinator are patent. Major dural venous sinuses opacify [...] 90cc Omnipaque 370 injected. Scan wasanalyzed using [employer] AI based computer aided triage software. [...] is patent. Vertebrobasilar system is patent. Proximal food and beverage coordinator are patent. Major dural venous sinuses opacify [...] Signed Date: 05/22/2025 13:29 ET Workstation ID: [id number] Transcribed By: Self Edit Transcribed Date: 05/22/2025 13:29 ET us Bryon Morgan MD IMG CT PROCEDURES Final Result * Electrocardiogram, 12 lead (05/22/2025 12:49 PM EDT) [facility] Ventricular Rate ECG 56 BPM GEMUSE Atrial Rate 56 BPM GEMUSE P-R Interval 158 ms GEMUSE QRS Duration 78 ms GEMUSE Q-T Interval 432 ms GEMUSE QTc 416 ms GEMUSE P Wave [place] -2 degrees GEMUSE R [place] 18 degrees GEMUSE T [place] 14 degrees GEMUSE ECG Interpretation Sinus bradycardia Otherwise normal ECG No previous ECGs available Confirmed by TREVA KINCAID ([id number]) on 05/22/2025 5:47:39 PM GEMUSE 05/22/2025 12:4 9 PM EDT 05/22/2025 5:47 PM EDT us Bryon Morgan MD ECG ORDERABLES Final Result GEMUSE * Troponin I high sensitivity (NOW) (05/22/2025 12:38 PM EDT) [facility] High Sensitivity Troponin I 6 <=54 ng/L LAB CHEMISTRY METHOD 05/22/2025 2:05 PM EDT [facility] Blood Venous blood specimen / Unknown Venipuncture / Unknown 05/22/2025 12:38 PM EDT 05/22/2025 12:49 PM EDT Narrative [facility] - 05/22/2025 2:05 PM EDT High levels of biotin in samples may falsely decrease hsTroponin values. Use caution when interpreting hsTroponin results in patients taking biotin who exhibit renal impairment (eGFR <60) or in patients taking more than 20 mg/day of biotin. us Bryon Morgan MD LAB BLOOD ORDERABLES Final Resul t Performing Organization Address [facility] Co de Phone Number [facility] [address] [place] [address], [place] [phone] * Activated partial thromboplastin time (05/22/2025 12:38 PM EDT) aPTT 33.7 24.1 - 39.3 sec LAB COAGULATION METHOD 05/22/2025 1:13 PM EDT [facility] Blood Venous blood specimen / Unknown Venipuncture / Unknown 05/22/2025 12:38 PM EDT 05/22/2025 12:49 PM EDT us Bryon Morgan MD LAB BLOOD ORDERABLES Final Resul t [facility] [address] [place] [address], [place] [phone] * Prothrombin time with INR (05/22/2025 12:38 PM EDT) Protime 12.2 10.6 - 13.9 sec LAB COAGULATION METHOD 05/22/2025 1:13 PM EDT [facility] INR 1.0 LAB COAGULATION METHOD 05/22/2025 1:13 PM EDT [facility] Blood Venous blood specimen / Unknown Venipuncture / Unknown 05/22/2025 12:38 PM EDT 05/22/2025 12:49 PM EDT us Bryon Morgan MD LAB BLOOD ORDERABLES Final Resul t Performing Organization Address [facility]/ZIP Co de Phone Number [facility] [address] [place] [address], [place] [phone] * (ABNORMAL) POCT Glucose, blood (05/22/2025 12:30 PM EDT) [employer] Signature Glucose POCT 103(H) 70 - 100 mg/dL 05/22/2025 12:30 PM EDT [facility] Blood Capillary blood specimen / Unknown 05/22/2025 12:30 PM EDT 05/22/2025 12:32 PM EDT Bryon Morgan MD LAB POINT OF CARE TE ST DOCKED DEVICE UNSOLICITED RESULTS Final Result Performing Organization Address City/[facility]/ZIP Co de Phone Number [facility] [address] [place] [address], [place] [phone] from Last 3 Months Insurance [facility] MEDICARE Member Subscriber Plan / Payer (Ef fective 2017-Present) Name:TEMITOPE DREW Relation to Subscriber:Self Name:Temitope Drew Payer ID:[id number] Group ID:[id number] Type:Not on file Address: [facility] [address] [id number] MEDICARE Advance Directives Documents on File Type Date Recorded Patient Business Assistant Expl anation Advance Directives and Living Will 05/23/2025 12:23 PM [facility] [place]xy * Full Code - Default (Latest Code Status on File) Date Activated Date Inactivated Comments 05/22/2025 4:52 PM 05/23/2025 7:53 PM This is or rell is used when code status has not been discussed with the patient, or code status is otherwise unknown/unconfirmed To update the patient's code status, place a code status order. Do not modify or discontinue any currently active code status orders. Healthcare Agents on File Name Relationship Healthcare Agent Relationshi p Communication [facility] Care Agent Care Teams Investment Accounting Clerk Relationship Specialty Start Date End Date Tena Carrillo MD [address] [place] [address] , [address] [facility] D/B/A: [facility] [place], [place] PCP - General Internal Medicine 12/10/24
--- OUTSIDE RECORDS SUMMARY | 2025-05-28 11:57 | XMS_ITS | Patient Health Record ---
Author Organization [facility] Address [address] [place] [address] Care Team Providers Care Steerer Name Role Phone Torey Irizarry MD Primary Care Provider [place] Loni Stallings Unavailable [phone] Allergies No Known Allergies Reason For Referral No Information Medications Medication SIG (Take, Route, Frequency, Duration) Notes Start Date End Date Status tiZANidine HCl 2 MG 1 tablet as needed Orally Three times a day Active Venlafaxine HCl ER 150 MG 1 capsule with food Orally Once a day; Duration: 30 day(s) Active Metoprolol Succinate 25 MG 1 capsule Ora lly Once a day; Duration: 30 day(s) Active Atorvastatin Calcium 10 MG 1 tablet Oral ly Once a day; Duration: 30 day(s) Active Ciclopirox Olamine 0.77 % 1 application Externally Once a day; Duration: 30 days 09/01/2022 Active hydroCHLOROthiazide 12.5 MG 1 capsule in the morning Orally Once a day; Duration: 30 day(s) Active Social History Tobacco Use: [...] Insured Coverage Start Date Coverage End Date [facility] [employer] Claims [address] [place] [id number] Temitope Tom Self - patient is the insured Medical (General) History Medical History History ICD Code Back,Hip,and Knee pain High blood pressure Surgical History Surgery Date(Month/Year)
== END 2025-05-28 09:55 | disposition home or self-care (01) ==
LOC: HO.MAMMO 09:54
PROVIDERS: PCP Internal Medicine; Visit Provider Internal Medicine
DX: Z12.31 Encounter for screening mammogram for malignant neoplasm of breast (principal)
CPT/HCPCS: 77063; 77067

== ENCOUNTER → 2025-05-28 10:30 | Outpatient (BNV) | payer OTHER, SELFPAY | PROVIDERS: PCP Internal Medicine; Visit Provider Radiology Body Imaging | DX: Z12.31 Encounter for screening mammogram for malignant neoplasm of breast (principal) | CPT/HCPCS: 77063; 77067 ==

== ENCOUNTER 2025-05-29 13:14 | Outpatient (AMB) | payer OTHER, SELFPAY ==
[2025-05-29 13:23] VITALS: BP 110/62; PULSE 51; BMI 36.5
--- NOTE | 2025-05-29 13:23 | MHC.OFFVIS ---
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 Required: Yes Treasury Accountant Language: Appliances Sample Maker Name: leoncio Allergies No Known Allergies (No Known Allergies*) Allergy (Verified 05/29/25 13:49) Medication List - Last Reconciled 05/29/25 by DAGO Rubi acetaminophen 325 mg PO QID PRN albuterol sulfate 90 mcg/actuation 2 puffs inhalation Q4H PRN aspirin 81 mg PO DAILY atorvastatin 10 mg PO DAILY blood pressure monitor As directed blood pressure test kit-wrist As directed duloxetine 60 mg PO DAILY duloxetine 60 mg PO DAILY hydrochlorothiazide 12.5 mg PO DAILY meloxicam 15 mg PO DAILY PRN 7 days metoprolol succinate ER 25 mg PO DAILY [neck pillow As directed] sulindac 200 mg PO BID trazodone 100 mg PO BEDTIME vibegron (Gemtesa) 75 mg PO DAILY 90 days HPI HPI [facility] DC: Details: Temitope is a 60-year-old female past medical history of hypertension, hyperlipidemia, pericarditis, heart palpitations, PVCs, who was recently admitted to [facility] with symptoms of lip numbness, left arm weakness, dizziness, headache and blurred vision. A CT and CTA of the head and neck showed no acute abnormalities. MRI of the brain reported as normal. Differentials included TIA versus complicated migraine. She now presents for follow-up. Today she reports that her symptoms gradually resolved following her hospital discharge. She has had no recurrent symptoms. She does not get headaches routinely. No recent heart palpitations. No chest discomfort at rest or with activity. No shortness of breath, PND, orthopnea or edema. No lightheadedness, presyncope, syncope. She has good activity tolerance. She is compliant with her medications. Certified gun synchronizer used. [facility]LY [facility], [facility] Medical History Right flank pain Burning with urination Obesity Hypertension Asthma Hyperlipidemia Surgical History History of vein stripping History of hysterectomy History of tubal ligation Family History Father Alcoholism Substance use disorder Mother Diabetes Paternal Grandfather CVD (cardiovascular disease) Social History Housing: Apartment Alcohol intake: never Patient Tobacco Use Status: Never used Tobacco e-Cigarette/Vaping Use: Never Used Second Hand Smoke Exposure: No service: No Current occupational status: disabled Cognitive needs: No Hearing needs: No Vision needs: No Review of Systems Const All systems reviewed & are unremarkable except as noted in HPI and below ENT Denies dizziness Card Denies chest pain, Denies chest pain at rest, Denies chest pain with activity, Denies rapid heart rate, Denies pedal edema, Denies edema, Denies leg edema, Denies lightheadedness, Denies palpitations, Denies dyspnea, Denies dyspnea on exertion and Denies orthopnea Resp Denies cough, Denies dyspnea and Denies dyspnea on exertion GI Denies hematochezia and Denies change in stool character Musc Denies abnormal gait, Denies limited range of motion, Denies muscle cramps, Denies muscle weakness, Denies numbness, Denies radiating pain into limb, Denies stiffness and Denies tingling Neuro Denies abnormal gait, Denies dizziness, Denies numbness and Denies tingling Endo Denies palpitations Physical Exam Vital Signs: Last Vital Signs Pulse 51 05/29/25 13:23 BP 110/62 05/29/25 13:23 BMI result Body Mass Index 36.5 Const General: cooperative, healthy appearing, comfortable and no acute distress Orientation/consciousness: patient oriented x3 Neck Neck: Yes normal visual inspection and Yes no JVD Resp Effort & Inspection: normal respiratory effort Auscultation: clear to auscultation bilaterally, no crackles, no rales, no rhonchi and no wheezes Cardio Rate: regular rate Rhythm: regular rhythm Heart sounds: S1 normal heart sound present, S2 normal heart sound present, no murmurs and no rubs Neuro General: patient oriented x3 Extrem General: Yes normal to inspection, No no pedal edema and No calf tenderness Psych Appearance: grossly normal Mental Status: mental status grossly normal Speech and movement: Normal speech and movement present Assessment & Plan Assessment & Plan (1) Migraine: Code(s): G43.909 - Migraine, unspecified, not intractable, without status migrainosus Category: Medical Plan: [facility] admission for neurological symptoms as stated above. She ruled out for CVA. Differentials include TIA versus complicated migraines. She has not had recurrent symptoms. Per hospital recommendations she is now on aspirin 81 mg daily. She is also on atorvastatin. She has not had follow-up with neurology as of yet. For cardiac evaluation will update echocardiogram and will order Holter monitor to assess for any arrhythmia, PAF. Instructed to seek emergency medical care in the event of any recurrent neurological symptoms. Cardiology follow-up 3-4 months, sooner if needed. (2) Palpitations: Code(s): R00.2 - Palpitations Category: Medical Plan: Prior reports of brief heart palpitations. Holter monitor done 07/19/2022 for 5 days showing sinus rhythm with average heart rate 63, rare PVCs, no pauses or AV blocks. Echocardiogram done on 10/15/2022 showed EF 57%, no valve abnormalities no regional wall motion abnormality. She was thought to be feeling extrasystoles/PVCs which are benign in patient with normal EF. Currently still asymptomatic however recent admission for possible TIA. Will update echocardiogram and Holter monitor. Continue metoprolol XL 25 mg daily. Reviewed reduction of caffeinated beverages, getting adequate rest, maintain good hydration and stay physically active. (3) S/P cardiac catheterization: Comment: 11/03/2021 showing normal coronary arteries Code(s): Z98.890 - Other specified postprocedural states Category: Surgical Plan: Cardiac catheterization from 10/2021 showed normal coronaries. (4) Hypertension: Code(s): I10 - Essential (primary) hypertension Category: Medical Qualifiers: Hypertension type: primary hypertension Qualified Code(s): I10 - Essential (primary) hypertension Plan: Blood pressure goal less than 130/80. Well controlled at this time. No medication changes made. Continue metoprolol, hydrochlorothiazide. (5) Hospital discharge follow-up: Code(s): Z09 - Encounter for follow-up examination after completed treatment for conditions other than malignant neoplasm Category: Medical Plan: [facility] records reviewed Plan I discussed with the patient the possibility of her symptoms being due to a transient ischemic attack or a complicated migraine. We agreed on conducting heart monitoring and an echocardiogram to rule out cardiac causes. I advised her to return to the emergency room if she experiences any further numbness or weakness. Orders: Orders CA echo transthoracic complete Today I10 - Essential (primary) hypertension, R00.2 - Palpitations ECG 7 day holter monitor Today R00.2 - Palpitations Patient Instructions: - Wear the heart monitor as instructed. - Attend the scheduled echocardiogram appointment. - Return to the emergency room if experiencing numbness or weakness. Patient was informed and verbally consented to the use of an ambient scribe for clinic note documentation during this visit. Visit time spent on chart review, interview, assessment, orders, documentation. Coding Level of Care Code Est Pt Level 4 (20533) Complex EM visit Add On G2211 Diagnoses Migraine G43.909 Palpitations R00.2 S/P cardiac catheterization Z98.890 Primary hypertension I10 Hypertension type: primary hypertension Hospital discharge follow-up Z09 Time Spent (min) 32
--- OUTSIDE RECORDS SUMMARY | 2025-05-29 16:10 | XMS_ITS | Clinical Summary ---
Author Organization [address] [facility] Address [address] [place] [address] Phone Care Team Providers Care Brim Raiser Name Role Phone Tena Carrillo MD Primary Care Provider [phone] Allergies No known active allergies Medications albuterol [...] - 05/23/2025 5:48 PM EDT Hospital Encounter [facility] [address] [place] [address] [phone] Bryon Morgan MD Flores, Carlos M, MD [...] for your loved ones. For example, child protective services social worker or elderly care for an older adult? [...] LAB CHEMISTRY METHOD 05/23/2025 3:[address] [facility] Triglycerides 69 0 - 150 mg/dL LAB CHEMISTRY METHOD 05/23/2025 3:[address] [facility] HDL 63 >=40 mg/dL LAB CHEMISTRY METHOD 05/23/2025 3:57 PM [facility] LDL Calculated 95 0 - 100 mg/dL LAB CHEMISTRY METHOD 05/23/2025 3:[address] [facility] Comment:Estimated LDL Calcul ated using equation: Total cholesterol - HDL cholesterol - (Triglycerides/5) VLDL Cholesterol Ajy 13.8 mg/dL LAB CHEMISTRY METHOD 05/23/2025 3:[address] [facility] Non HDL Chol. (LDL+VLDL) 109 <145 mg/dL LAB CHEMISTRY METHOD 05/23/2025 3:57 PM [facility] Chol/HDL Ratio 2.7 0.0 - 4.4 LAB CHEMISTRY METHOD 05/23/2025 3:57 PM [facility] Blood Venous blood specimen / Unknown Venipuncture / Unknown 05/23/2025 5:36 AM EDT 05/23/2025 6:54 AM EDT us Marcelo Barnes MD LAB BLOOD ORDERABLES F inal Result [facility] [address] [place] [address], [place] [phone] * (ABNORMAL) CBC auto differential (05/23/2025 5:36 AM EDT) Only the most recent of2 resultswithin the time period is included. WBC 5.4 4.8 - 10.8 K/mcL LAB HEMETOLOGY METHOD 05/23/2025 7:[address] [facility] RBC 4.10 3.80 - 4.80 M/mcL LAB HEMETOLOGY METHOD 05/23/2025 7:[address] [facility] Hemoglobin 12.7 11.5 - 16.0 g/dL LAB HEMETOLOGY METHOD 05/23/2025 7:[address] [facility] Hematocrit 38.9 35.0 - 47.0 % LAB HEMETOLOGY METHOD 05/23/2025 7:[address] [facility] MCV 94.6 79.0 - 98.0 FL LAB HEMETOLOGY METHOD 05/23/2025 7:[address] [facility] MCH 30.9 27.0 - 32.0 pcg LAB HEMETOLOGY METHOD 05/23/2025 7:[address] [facility] MCHC 32.6 32.0 - 37.0 g/dL LAB HEMETOLOGY METHOD 05/23/2025 7:[address] [facility] RDW 12.3 11.0 - 15.0 % LAB HEMETOLOGY METHOD 05/23/2025 7:[address] [facility] Platelets 219 130 - 400 K/mcL LAB HEMETOLOGY METHOD 05/23/2025 7:[address] [facility] MPV 11.7(H) 7.0 - 11.0 FL LAB HEMETOLOGY METHOD 05/23/2025 7:06 AM [facility] NRBC 0.0 <1.0 % LAB HEMETOLOGY METHOD 05/23/2025 7:06 AM [facility] NRBC Absolute 0.00 <0.10 K/mcL LAB HEMETOLOGY METHOD 05/23/2025 7:06 AM [facility] Neutrophils Relative 52.8 % LAB HEMETOLOGY METHOD 05/23/2025 7:06 AM [facility] Lymphocytes Relative 33.1 % LAB HEMETOLOGY METHOD 05/23/2025 7:06 AM [facility] Monocytes Relative 9.8 % LAB HEMETOLOGY METHOD 05/23/2025 7:06 AM [facility] Eosinophils Relative 3.5 % LAB HEMETOLOGY METHOD 05/23/2025 7:06 AM [facility] Basophils Relative 0.6 % LAB HEMETOLOGY METHOD 05/23/2025 7:06 AM [facility] Immature Granulocytes Relative 0.2 % LAB HEMETOLOGY METHOD 05/23/2025 7:06 AM [facility] Neutrophils Absolute 2.86 1.50 - 7.00 K/mcL LAB HEMETOLOGY METHOD 05/23/2025 7:06 AM [facility] Lymphocytes Absolute 1.79 1.00 - 5.00 K/mcL LAB HEMETOLOGY METHOD 05/23/2025 7:06 AM [facility] Monocytes Absolute 0.53 0.20 - 1.00 K/mcL LAB HEMETOLOGY METHOD 05/23/2025 7:06 AM [facility] Eosinophils Absolute 0.19 0.00 - 0.50 K/mcL LAB HEMETOLOGY METHOD 05/23/2025 7:[address] [facility] Basophils Absolute 0.03 0.00 - 0.20 K/[facility] LAB HEMETOLOGY METHOD 05/23/2025 7:[address] [facility] Immature Granulocytes Absolute 0.01 0.00 - 0.03 K/[facility] LAB HEMETOLOGY METHOD 05/23/2025 7:[address] [facility] Blood Venous blood specimen / Unknown Venipuncture / Unknown 05/23/2025 5:36 AM EDT 05/23/2025 6:54 AM EDT us Arianna Abraham NP LAB BLOOD ORDERABLES Final Resu lt Performing Organization Address [facility]/ZIP Co de Phone Number [facility] [address] [place] [address], [place] [phone] * Magnesium (05/23/2025 5:36 AM EDT) Only the most recent of2 resultswithin the time period is included. Magnesium 2.0 1.9 - 2.6 mg/dL LAB CHEMISTRY METHOD 05/23/2025 8:[address] [facility] Blood Venous blood specimen / Unknown Venipuncture / Unknown 05/23/2025 5:36 AM EDT 05/23/2025 6:54 AM EDT us Arianna Abraham NP LAB BLOOD ORDERABLES Final Resu lt Performing Organization Address City/[facility]/ZIP Co de Phone Number [facility] [address] [place] [address], [place] [phone] * Basic metabolic panel (05/23/2025 5:36 AM EDT) Only the most recent of2 resultswithin the time period is included. Sodium 138 133 - 145 mmol/L LAB CHEMISTRY METHOD 05/23/2025 8:[address] [facility] Potassium 4.4 3.5 - 5.5 mmol/L LAB CHEMISTRY METHOD 05/23/2025 8:12 AM [facility] Chloride 102 96 - 110 mmol/L LAB CHEMISTRY METHOD 05/23/2025 8:12 AM [facility] CO2 31 21 - 32 mmol/L LAB CHEMISTRY METHOD 05/23/2025 8:12 AM [facility] Anion Gap 5 3 - 11 LAB CHEMISTRY METHOD 05/23/2025 8:12 AM [facility] Glucose 99 70 - 100 mg/dL LAB CHEMISTRY METHOD 05/23/2025 8:12 AM [facility] BUN 21 5 - 25 mg/dL LAB CHEMISTRY METHOD 05/23/2025 8:12 AM [facility] Creatinine 0.72 0.50 - 1.10 mg/dL LAB CHEMISTRY METHOD 05/23/2025 8:12 AM [facility] eGFR 95 >=60 mL/min/1. 73m2 LAB CHEMISTRY METHOD 05/23/2025 8:12 AM [facility] Comment:Calculation based on the Chronic Kidney Disease Epidemiology Collaboration (CKD-EPI) equation refit without adjustment for race. BUN/Creatinine Ratio 29.2 LAB CHEMISTRY METHOD 05/23/2025 8:12 AM [facility] Calcium 9.5 8.5 - 10.5 mg/dL LAB CHEMISTRY METHOD 05/23/2025 8:12 AM [facility] Blood Venous blood specimen / Unknown Venipuncture / Unknown 05/23/2025 5:36 AM EDT 05/23/2025 6:54 AM EDT us Arianna Abraham NP LAB BLOOD ORDERABLES Final Resu lt [facility] [address] [place] [address], * MR Brain wo Contrast (05/22/2025 7:09 [...] MD on 05/22/2025 19:31:23 Arianna Abraham NP [facility] MRI PROCEDURES Final Result * Urinalysis with reflex microscopic (05/22/2025 2:26 PM EDT) Specific [place] Urine 1.026 1.003 - 1.030 LAB URINALYSIS - AUTOMATED METHOD 05/22/2025 2:[address] [facility] pH, Urine 6.5 5.0 - 8.0 pH LAB URINALYSIS - AUTOMATED METHOD 05/22/2025 2:[address] [facility] Leukocytes, Urine Negative Negative LAB URINALYSIS - AUTOMATED METHOD 05/22/2025 2:[address] [facility] Nitrite, Urine Negative Negative LAB URINALYSIS - AUTOMATED METHOD 05/22/2025 2:[address] [facility] Protein, Urine Negative <=Trace mg/dL LAB URINALYSIS - AUTOMATED METHOD 05/22/2025 2:[address] [facility] Glucose, Urine Negative Negative mg/dL LAB URINALYSIS - AUTOMATED METHOD 05/22/2025 2:[facility] Ketones, Urine Negative Negative mg/dL LAB URINALYSIS - AUTOMATED METHOD 05/22/2025 2:[address] [facility] Urobilinogen, Urine 0.2 0.2 - 1.0 mg/dL LAB URINALYSIS - AUTOMATED METHOD 05/22/2025 2:[address] [facility] Bilirubin, Urine Negative Negative LAB URINALYSIS - AUTOMATED METHOD 05/22/2025 2:[address] [facility] Blood, Urine Negative Negative LAB URINALYSIS - AUTOMATED METHOD 05/22/2025 2:[address] [facility] Urine Urine specimen obtained by clean catch procedure / Unknown Non-blood Collection / Unknown 05/22/2025 2:26 PM EDT 05/22/2025 2:43 PM EDT us Bryon Morgan MD LAB URINE ORDERABLES Final Resul t [facility] [address] [place] [address], [place] [phone] * XR Chest 1 View (05/22/2025 1:52 [...] Signed Date: 05/22/2025 14:58 ET Workstation ID: [id number] Transcribed By: Self Edit Transcribed Date: 05/22/2025 [...] Signed Date: 05/22/2025 14:58 ET Workstation ID: [id number] Transcribed By: Self Edit Transcribed Date: 05/22/2025 [...] Signed Date: 05/22/2025 13:26 ET Workstation ID: [id number] Transcribed By: Self Edit Transcribed Date: 05/22/2025 [...] Signed Date: 05/22/2025 13:26 ET Workstation ID: [id number] Transcribed By: Self Edit Transcribed Date: 05/22/2025 13:23 ET Bryon Morgan MD [facility] CT PROCEDURES Final Result * CT Angio [...] Signed Date: 05/22/2025 13:29 ET Workstation ID: [id number] Transcribed By: Self Edit Transcribed Date: 05/22/2025 13:29 ET Narrative 05/22/2025 1:29 PM EDT PROCEDURE: CTA HEAD AND NECK INDICATION: left arm weakness TECHNIQUE: CTA of the head and neck with intravenous contrast. Multiplanar reformats. The examination was performed utilizing dose reduction techniques.3-D or MIP images were produced with postprocessing on an independent computer workstation. 90cc Omnipaque 370 injected. Scan was analyzed using GradeStack Contact AI based computer aided triage software. [...] is patent. Vertebrobasilar system is patent. Proximal machine bobbin winder are patent. Major dural venous sinuses opacify [...] 90cc Omnipaque 370 injected. Scan wasanalyzed using GradeStack Contact AI based computer aided triage software. [...] is patent. Vertebrobasilar system is patent. Proximal machine bobbin winder are patent. Major dural venous sinuses opacify [...] Signed Date: 05/22/2025 13:29 ET Workstation ID: [id number] Transcribed By: Self Edit Transcribed Date: 05/22/2025 13:29 ET us Bryon Morgan MD IMG CT PROCEDURES Final Result * Electrocardiogram, 12 lead (05/22/2025 12:49 PM EDT) [facility] Ventricular Rate ECG 56 BPM GEMUSE Atrial Rate 56 BPM GEMUSE P-R Interval 158 ms GEMUSE QRS Duration 78 ms GEMUSE Q-T Interval 432 ms GEMUSE QTc 416 ms GEMUSE P Wave [place] -2 degrees GEMUSE R [place] 18 degrees GEMUSE T [place] 14 degrees GEMUSE ECG Interpretation Sinus bradycardia Otherwise normal ECG No previous ECGs available Confirmed by TREVA KINCAID ([id number]) on 05/22/2025 5:47:39 PM GEMUSE 05/22/2025 12:4 9 PM EDT 05/22/2025 5:47 PM EDT us Bryon Morgan MD ECG ORDERABLES Final Result GEMUSE * Troponin I high sensitivity (NOW) (05/22/2025 12:38 PM EDT) [facility] High Sensitivity Troponin I 6 <=54 ng/L LAB CHEMISTRY METHOD 05/22/2025 2:[address] [facility] Blood Venous blood specimen / Unknown Venipuncture / Unknown 05/22/2025 12:38 PM EDT 05/22/2025 12:[address] [facility] - 05/22/2025 2:05 PM EDT High levels of biotin in samples may falsely decrease hsTroponin values. Use caution when interpreting hsTroponin results in patients taking biotin who exhibit renal impairment (eGFR <60) or in patients taking more than 20 mg/day of biotin. us Bryon Morgan MD LAB BLOOD ORDERABLES Final Resul t Performing Organization Address [facility] Co de Phone Number [facility] [address] [place] [address], [place] [phone] * Activated partial thromboplastin time (05/22/2025 12:38 PM EDT) aPTT 33.7 24.1 - 39.3 sec LAB COAGULATION METHOD 05/22/2025 1:[address] [facility] Blood Venous blood specimen / Unknown Venipuncture / Unknown 05/22/2025 12:38 PM EDT 05/22/2025 12:49 PM EDT us Bryon Morgan MD LAB BLOOD ORDERABLES Final Resul t [facility] [address] [place] [address], [place] [phone] * Prothrombin time with INR (05/22/2025 12:38 PM EDT) Protime 12.2 10.6 - 13.9 sec LAB COAGULATION METHOD 05/22/2025 1:[address] [facility] INR 1.0 LAB COAGULATION METHOD 05/22/2025 1:[address] [facility] Blood Venous blood specimen / Unknown Venipuncture / Unknown 05/22/2025 12:38 PM EDT 05/22/2025 12:49 PM EDT us Bryon Morgan MD LAB BLOOD ORDERABLES Final Resul t Performing Organization Address [facility]/ZIP Co de Phone Number [facility] [address] [place] [address], [place] [phone] * (ABNORMAL) POCT Glucose, blood (05/22/2025 12:30 PM EDT) [facility] Signature Glucose POCT 103(H) 70 - 100 mg/dL 05/22/2025 12:[address] [facility] Blood Capillary blood specimen / Unknown 05/22/2025 12:30 PM EDT 05/22/2025 12:32 PM EDT Bryon Morgan MD LAB POINT OF CARE TE ST DOCKED DEVICE UNSOLICITED RESULTS Final Result Performing Organization Address City/[facility]/ZIP Co de Phone Number 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
--- OUTSIDE RECORDS SUMMARY | 2025-05-29 16:10 | XMS_ITS | Patient Health Record ---
Author Organization [facility] Address [address] [place] [address] Care Team Providers Care Tanker Driver Name Role Phone Torey Irizarry MD Primary Care Provider France Loni Stallings Unavailable [phone] Allergies No Known Allergies Reason For Referral [...] Insured Coverage Start Date Coverage End Date [facility] [employer] Claims [address] [place] [id number] Temitope Tom Self - patient is the insured Medical (General) History Medical History History ICD Code Back,Hip,and Knee pain High blood pressure Surgical History Surgery Date(Month/Year)
== END 2025-05-29 14:27 | disposition home or self-care (01) ==
LOC: HO.HCS 13:14
PROVIDERS: PCP Internal Medicine; Visit Provider Nurse Practitioner Family
DX: G43.909 Migraine, unspecified, not intractable, without status migrainosus (principal); R00.2 Palpitations; Z98.890 Other specified postprocedural states; I10 Essential (primary) hypertension; Z09 Encounter for follow-up examination after completed treatment for conditions other than malignant neoplasm
CPT/HCPCS: 99214; G2211

== ENCOUNTER → 2025-05-29 13:14 | Outpatient (BNVA) | payer OTHER, SELFPAY | PROVIDERS: PCP Internal Medicine; Visit Provider Nurse Practitioner Family | DX: Z09 Encounter for follow-up examination after completed treatment for conditions other than malignant neoplasm (principal); G43.909 Migraine, unspecified, not intractable, without status migrainosus; R00.2 Palpitations; I10 Essential (primary) hypertension; Z98.890 Other specified postprocedural states | CPT/HCPCS: 99212 ==

== ENCOUNTER 2025-05-30 10:55 | Outpatient (AMB) | payer OTHER, SELFPAY ==
--- OUTSIDE RECORDS SUMMARY | 2022-12-19 12:16 | XMS_ITS | Continuity of Care Document ---
Author Organization [facility] Address [address] [place] [address] [address] [place] [phone] Phone Care Team Providers Care Lot Worker Name Role Phone Home CARLIN FACS RVT Josie SANDOVAL Unavailable Unavailable Allergies, Adverse Reactions, Alerts Substance Reaction Status Criticality No Known Allergies Active No Inform ation Medications Medication Instructions Dosage Effective Dates (start - stop) Status Comments trazodone 50 mg tablet - Act naomi atorvastatin 20 mg tablet - Active metoprolol succinate ER 25 mg tablet,extended release 24 hr - Active Procedures Procedure Date Office/Outpt E&M Established 15 Mins November Duplex Scan-extrem Veins; Uni/ Office/Outpt E&M Established 15 Mins Sep Advance Directives Directive Yes / No Effective Date File Name No Information Encounters Encounter Description Practice Location Reason(s) For Visit Diagnoses Date Provider Providers Copied on Encounter [facility], [address] [place] [address] [address], [place], [id number], [place] tel:[phone] [facility] No Information Home CARLIN FACS NUZHAT Rojas. [address] [facility] [address], [place], [address], [place]. tel:[phone] Referring Provider: Torey Irizarry MD, [address] [facility] [address], [place], [address]. tel:[phone] Office/Outpt E&M Established 15 Mins [facility], [address] [place] [address] [address], [place], [id number], [place] tel:[phone] [facility] [place] Venous insufficiency (chronic) (peripheral) 3 Home CARLIN FACS Savita Rojas. [address] [facility], [address], [place], [address], [place]. tel:[phone] Referring Provider: Torey Irizarry MD, [address] [facility] [address] [facility], [place], [address]. tel:[phone] [facility], [address] [place] [address] [address], [place], [id number], [place] tel:[phone] [facility] [place] Venous insufficiency (chronic) (peripheral)Leslie n in right legCompression of vein 3 Home CARLIN FACS Savita Rojas. [address] [facility], [address], [place], [address], [place]. [phone] Referring Provider: Torey Irizarry MD, [address] [facility] [address] [facility], [place], [address]. tel:[phone] Office/Outpt E&M Established 15 [facility], [address] [place] [address] [address], [place], [id number], [place] tel:[phone] [facility] - [place] Venous insufficiency (chronic) (peripheral)Leslie n in right legBody mass index (BMI) 38.0-38.9, adult Mar-3 3 Home CARLIN FACS Savita Rojas. [address] [facility], [address], [place], [address], [place]. tel:[phone] Referring Provider: Torey Irizarry MD, [address] [facility] SU[address] [facility], [place], [address]. tel:[phone] Family History Family Member Type Diagnosis Age At Onset No Information Payers Payer name Insurance type Covered constitution party ID Jessica hawkins(s) [facility] [id number] Social History Type Description Quantity Date Captured Comments Sex Female Smoking Status No Information Chief Complaint And Reason For Visit No Information Reason For Referral Reason For Referral No Information Plan Of Treatment Date Type Action Status Nutrition Recommendation Nutrition therap y completed History Of Present Illness Encounter Date Complaint History Of Prese nt Illness No Information Functional Status Date Functional Assessmen t No Information Instructions Date Instruction Additional Infor mation No Information Assessments Type Assessment Date No Information Patient Care Teams Name Effective Dates (start - stop) Status Members No Information
[2025-05-30 11:05] VITALS: BP 110/74; PULSE 54; O2SAT 98; BMI 36.4
--- NOTE | 2025-05-30 11:05 | A.OFFPC_ITS ---
Vital Signs 05/30/25 11:05 Height 4 ft 11 in Weight 180 lb 2 oz BMI 36.4 BP 110/74 Blood Pressure Location Lt brachial Position Sitting Pulse 54 Pulse Source Pulse Oximeter Pulse Oximetry (%) 98 Oxygen Delivery Method Room Air Intake Visit Reasons: [facility] 05/23 possible stroke Legal Instructor Required: No Accompanied by: Self / Same As Patient Allergies No Known Allergies (No Known Allergies*) Allergy (Verified 05/30/25 11:06) Tobacco use date assessed: 05/30/25 Dental Screening Dental Screen Date: 05/30/25 Did you have a dental visit in the last 12 months?: Yes Did you have a dental problem in the last 6 months where you did not have access to dental care?: No Was dental information given to patient?: Patient has dentist HPI HPI Comments History of Present Illness Details 60-year-old female who presents to the [facility] ([facility]) for HDF. Past Medical History significant for Hypertension, Hyperlipidemia, Overactive Bladder and Depression. The patient was admitted to [facility] from 05/22?05/23 for evaluation of lower lip numbness, left upper extremity weakness, dizziness, headaches, and bilateral blurry vision. Work-up included CT/CTA of the head and neck, which showed no acute abnormalities, and MRI of the brain, also unremarkable. She was started on aspirin 81 mg and advised to continue Statin therapy. Echo and Holter monitor were ordered for outpatient follow-up. The episode was possibly a transient ischemic attack (TIA), but all work-up and labs were unremarkable. Today, the patient reports insomnia, which has worsened since her hospital discharge. [facility] Medical History (Updated 05/30/25 @ 11:48 by Adelina Cruz NP) TIA (transient ischemic attack) Right flank pain Burning with urination Obesity Hypertension Asthma Hyperlipidemia Surgical History History of vein stripping History of hysterectomy History of tubal ligation Family History Father Alcoholism Substance use disorder Mother Diabetes Paternal Grandfather CVD (cardiovascular disease) Social History Housing: Apartment Alcohol intake: never Patient Tobacco Use Status: Never used Tobacco e-Cigarette/Vaping Use: Never Used Second Hand Smoke Exposure: No service: No Current occupational status: disabled Cognitive needs: No Hearing needs: No Vision needs: No Questionnaire PHQ-9 Over the last 2 weeks, how often have you been bothered by any of the following problems? 1. Little interest or pleasure in doing things: several days 2. Feeling down, depressed, or hopeless: several days 3. Trouble falling or staying asleep, or sleeping too much: several days 4. Feeling tired or having little energy: several days 5. Poor appetite or overeating: not at all 6. Feeling bad about yourself - or that you are a failure or have let yourself or your family down: not at all 7. Trouble concentrating on things, such as reading the newspaper or watching television: not at all 8. Moving or speaking so slowly that other people could have noticed. Or the opposite - being so fidgety or restless that you have been moving around a lot more than usual: not at all 9. Thoughts that you would be better off or of hurting yourself in some way: not at all Total score: 4 Source: Developed by Drs. Rizwan Garcia, Miroslava Saez, Rigo Mccoy and colleagues, with an educational wilfredo from [employer]. Thrive Questionnaire Date Thrive assessed: 05/30/25 I am a: Patient What is your living situation today?: I have a steady place to live Within the past 12 months, did the food you bought not last and you didn't have the money to get more?: I choose not to answer this question Within the past 12 months, did you worry whether your food would run out before you got money to buy more?: I choose not to answer this question Do you have trouble paying for medicines?: No Do you have trouble getting transportation to medical appointments?: No Do you have trouble paying your heating and electricity bill?: No Do you have trouble taking care of your child, family member or friend?: I choose not to answer this question Do you have trouble with day-to-day activities such as bathing, preparing meals, shopping, managing finances, etc.?: No Are you currently unemployed and looking for a job?: I choose not to answer this question Are you interested in more education?: I choose not to answer this question Please select the resources that you would like help with: Transportation Currently or been in a relationship where the following occur: I choose not to answer THRIVE Score: 0 AUDIT C Alcohol Use Questionnaire (AUDIT-C) 1. How often do you have a drink containing alcohol?: Never 3. How often do you have six or more drinks on one occasion?: Never Total Score: 0 RUBIA-7 AMB Questionnaire RUBIA-7 Date RUBIA - 7 assessed: 01/09/25 Feeling nervous, anxious, or on edge: 0 = Not at all Not being able to stop or control worryin = Not at all Source: Developed by Drs. Rizwan Garcia, Miroslava Saez, Rigo Mccoy and colleagues, with an educational wilfredo from [employer]. Review of Systems Const All systems reviewed & are unremarkable except as noted in HPI and below Physical exam (Primary Care) Vital Signs: Last Vital Signs Pulse 54 05/30/25 11:05 BP 110/74 05/30/25 11:05 Pulse Ox 98 05/30/25 11:05 Oxygen Delivery Method Room Air 05/30/25 11:05 BMI result Body Mass Index 36.4 Tobacco/Smoking Status: Tobacco use Status Tobacco use date assessed 05/30/25 05/30/25 11:10 Patient Tobacco Use Status Never used Tobacco 05/30/25 11:10 Tobacco use type 01/09/25 12:44 e-Cigarette/Vaping Use Never Used 05/30/25 11:10 PHQ-9: PHQ-9 Score PHQ-9: Total score 4 05/30/25 11:10 Thrive Assessment: Date of Thrive Assessment Date Thrive assessed 05/30/25 05/30/25 11:10 Currently or been in a relationship where the following occur: I choose not to answer Const General: no acute distress Nutritional Appearance: overweight Orientation/consciousness: patient oriented x3 HENMT Head: Yes normocephalic Ears: external ears normal Face and sinus: Yes normal facial exam and Yes face symmetric Eyes Pupils: Equal, round and reactive pupils present Neck Neck: Yes full ROM Resp Effort & Inspection: normal respiratory effort Auscultation: clear to auscultation bilaterally Cardio Heart sounds: S1 normal heart sound present and S2 normal heart sound present Neuro General: patient oriented x3, gait normal and moves all extremities Cranial nerves: Yes Equal, round and reactive pupils present Motor exam (neuro): 5/5 motor strength present throughout Psych Speech and movement: Normal speech and movement present Coding Level of Care Code Est Pt Level 4 (25555) Diagnoses TIA (transient ischemic attack) G45.9 Time Spent (min) 20 Assessment & Plan Assessment & Plan (1) TIA (transient ischemic attack): Code(s): G45.9 - Transient cerebral ischemic attack, unspecified Category: Medical Plan: Continue ASA 81 mg daily and statin therapy as previously prescribed. Monitor for any recurrent neurological symptoms (weakness, numbness, vision olivier ges, dizziness, headaches). Addressed insomnia: Consider sleep hygiene measures, and cognitive-behavioral strategies. Advised to schedule F/U with PCP for Insomnia.
--- OUTSIDE RECORDS SUMMARY | 2025-05-30 12:25 | XMS_ITS | Patient Health Record ---
Author Organization [facility] Luis [facility] Address [address] [place] [address] Care Team Providers Care Refuse And Recycling Worker Name Role Phone Torey Irizarry MD Primary Care Provider France Loni Stallings Unavailable [phone] Allergies No Known Allergies Reason For Referral [...] Insured Coverage Start Date Coverage End Date [facility] [employer] Claims [address] [place] [id number] Temitope Tom Self - patient is the insured Medical (General) History Medical History History ICD Code Back,Hip,and Knee pain High blood pressure Surgical History Surgery Date(Month/Year)
--- OUTSIDE RECORDS SUMMARY | 2025-05-30 12:25 | XMS_ITS | Clinical Summary ---
Author Organization [facility] Address [address] [place] [address] Phone Care Team Providers Care Vac Press Operator Name Role Phone Tena Carrillo MD Primary Care Provider [phone] Allergies No known active allergies Medications albuterol [...] - 05/23/2025 5:48 PM EDT Hospital Encounter [facility] [address] [place] [address] [phone] Bryon Morgan MD Flores, Carlos M, MD [...] for your loved ones. For example, child welfare manager or elderly care for an older adult? [...] LAB CHEMISTRY METHOD 05/23/2025 3:57 PM EDT [facility] Triglycerides 69 0 - 150 mg/dL LAB CHEMISTRY METHOD 05/23/2025 3:57 PM T [facility] HDL 63 >=40 mg/dL LAB CHEMISTRY METHOD 05/23/2025 3:57 PM [facility] LDL Calculated 95 0 - 100 mg/dL LAB CHEMISTRY METHOD 05/23/2025 3:57 PM T [facility] Comment:Estimated LDL Calcul ated using equation: Total cholesterol - HDL cholesterol - (Triglycerides/5) VLDL Cholesterol Jay 13.8 mg/dL LAB CHEMISTRY METHOD 05/23/2025 3:57 PM T [facility] Non HDL Chol. (LDL+VLDL) 109 <145 mg/dL LAB CHEMISTRY METHOD 05/23/2025 3:57 PM [facility] Chol/HDL Ratio 2.7 0.0 - 4.4 LAB CHEMISTRY METHOD 05/23/2025 3:57 PM [facility] Blood Venous blood specimen / Unknown Venipuncture / Unknown 05/23/2025 5:36 AM EDT 05/23/2025 6:54 AM EDT us Marcelo Barnes MD LAB BLOOD ORDERABLES F inal Result [facility] [address] [place] [address], [place] [phone] * (ABNORMAL) CBC auto differential (05/23/2025 5:36 AM EDT) Only the most recent of2 resultswithin the time period is included. WBC 5.4 4.8 - 10.8 K/mcL LAB HEMETOLOGY METHOD 05/23/2025 7:06 AM EDT [facility] RBC 4.10 3.80 - 4.80 M/mcL LAB HEMETOLOGY METHOD 05/23/2025 7:06 AM EDT [facility] Hemoglobin 12.7 11.5 - 16.0 g/dL LAB HEMETOLOGY METHOD 05/23/2025 7:06 AM EDT [facility] Hematocrit 38.9 35.0 - 47.0 % LAB HEMETOLOGY METHOD 05/23/2025 7:06 AM EDT [facility] MCV 94.6 79.0 - 98.0 FL LAB HEMETOLOGY METHOD 05/23/2025 7:06 AM EDT [facility] MCH 30.9 27.0 - 32.0 pcg LAB HEMETOLOGY METHOD 05/23/2025 7:06 AM EDT [facility] MCHC 32.6 32.0 - 37.0 g/dL LAB HEMETOLOGY METHOD 05/23/2025 7:06 AM EDT [facility] RDW 12.3 11.0 - 15.0 % LAB HEMETOLOGY METHOD 05/23/2025 7:06 AM EDT [facility] Platelets 219 130 - 400 K/mcL LAB HEMETOLOGY METHOD 05/23/2025 7:06 AM EDT [facility] MPV 11.7(H) 7.0 - 11.0 FL LAB HEMETOLOGY METHOD 05/23/2025 7:06 AM [facility] NRBC 0.0 <1.0 % LAB HEMETOLOGY METHOD 05/23/2025 7:06 AM [facility] NRBC Absolute 0.00 <0.10 K/mcL LAB HEMETOLOGY METHOD 05/23/2025 7:06 AM [facility] Neutrophils Relative 52.8 % LAB HEMETOLOGY METHOD 05/23/2025 7:06 AM [facility] Lymphocytes Relative 33.1 % LAB HEMETOLOGY METHOD 05/23/2025 7:06 AM [facility] Monocytes Relative 9.8 % LAB HEMETOLOGY METHOD 05/23/2025 7:06 AM [facility] Eosinophils Relative 3.5 % LAB HEMETOLOGY METHOD 05/23/2025 7:06 AM [facility] Basophils Relative 0.6 % LAB HEMETOLOGY METHOD 05/23/2025 7:06 AM [facility] Immature Granulocytes Relative 0.2 % LAB HEMETOLOGY METHOD 05/23/2025 7:06 AM [facility] Neutrophils Absolute 2.86 1.50 - 7.00 K/mcL LAB HEMETOLOGY METHOD 05/23/2025 7:06 AM [facility] Lymphocytes Absolute 1.79 1.00 - 5.00 K/mcL LAB HEMETOLOGY METHOD 05/23/2025 7:06 AM [facility] Monocytes Absolute 0.53 0.20 - 1.00 K/mcL LAB HEMETOLOGY METHOD 05/23/2025 7:06 AM [facility] Eosinophils Absolute 0.19 0.00 - 0.50 K/mcL LAB HEMETOLOGY METHOD 05/23/2025 7:06 AM EDT [facility] Basophils Absolute 0.03 0.00 - 0.20 K/[facility] LAB HEMETOLOGY METHOD 05/23/2025 7:06 AM EDT [facility] Immature Granulocytes Absolute 0.01 0.00 - 0.03 K/[facility] LAB HEMETOLOGY METHOD 05/23/2025 7:06 AM EDT [facility] Blood Venous blood specimen / Unknown Venipuncture / Unknown 05/23/2025 5:36 AM EDT 05/23/2025 6:54 AM EDT us Arianna Abraham NP LAB BLOOD ORDERABLES Final Resu lt Performing Organization Address [facility]/ZIP Co de Phone Number [facility] [address] [place] [address], [place] [phone] * Magnesium (05/23/2025 5:36 AM EDT) Only the most recent of2 resultswithin the time period is included. Magnesium 2.0 1.9 - 2.6 mg/dL LAB CHEMISTRY METHOD 05/23/2025 8:12 AM EDT [facility] Blood Venous blood specimen / Unknown Venipuncture / Unknown 05/23/2025 5:36 AM EDT 05/23/2025 6:54 AM EDT us Arianna Abraham NP LAB BLOOD ORDERABLES Final Resu lt Performing Organization Address City/[facility]/ZIP Co de Phone Number [facility] [address] [place] [address], [place] [phone] * Basic metabolic panel (05/23/2025 5:36 AM EDT) Only the most recent of2 resultswithin the time period is included. Sodium 138 133 - 145 mmol/L LAB CHEMISTRY METHOD 05/23/2025 8:12 AM EDT [facility] Potassium 4.4 3.5 - 5.5 mmol/L LAB CHEMISTRY METHOD 05/23/2025 8:12 AM [facility] Chloride 102 96 - 110 mmol/L LAB CHEMISTRY METHOD 05/23/2025 8:12 AM [facility] CO2 31 21 - 32 mmol/L LAB CHEMISTRY METHOD 05/23/2025 8:12 AM [facility] Anion Gap 5 3 - 11 LAB CHEMISTRY METHOD 05/23/2025 8:12 AM [facility] Glucose 99 70 - 100 mg/dL LAB CHEMISTRY METHOD 05/23/2025 8:12 AM [facility] BUN 21 5 - 25 mg/dL LAB CHEMISTRY METHOD 05/23/2025 8:12 AM [facility] Creatinine 0.72 0.50 - 1.10 mg/dL LAB CHEMISTRY METHOD 05/23/2025 8:12 AM [facility] eGFR 95 >=60 mL/min/1. 73m2 LAB CHEMISTRY METHOD 05/23/2025 8:12 AM [facility] Comment:Calculation based on the Chronic Kidney Disease Epidemiology Collaboration (CKD-EPI) equation refit without adjustment for race. BUN/Creatinine Ratio 29.2 LAB CHEMISTRY METHOD 05/23/2025 8:12 AM [facility] Calcium 9.5 8.5 - 10.5 mg/dL LAB CHEMISTRY METHOD 05/23/2025 8:12 AM [facility] Blood Venous blood specimen / Unknown Venipuncture / Unknown 05/23/2025 5:36 AM EDT 05/23/2025 6:54 AM EDT us Arianna Abraham NP LAB BLOOD ORDERABLES Final Resu lt [facility] [address] [place] [address], * MR Brain wo Contrast (05/22/2025 7:09 [...] MD on 05/22/2025 19:31:23 Arianna Abraham NP [facility] MRI PROCEDURES Final Result * Urinalysis with reflex microscopic (05/22/2025 2:26 PM EDT) Specific [place] Urine 1.026 1.003 - 1.030 LAB URINALYSIS - AUTOMATED METHOD 05/22/2025 2:49 PM EDT [facility] pH, Urine 6.5 5.0 - 8.0 pH LAB URINALYSIS - AUTOMATED METHOD 05/22/2025 2:49 PM EDT [facility] Leukocytes, Urine Negative Negative LAB URINALYSIS - AUTOMATED METHOD 05/22/2025 2:49 PM EDT [facility] Nitrite, Urine Negative Negative LAB URINALYSIS - AUTOMATED METHOD 05/22/2025 2:49 PM EDT [facility] Protein, Urine Negative <=Trace mg/dL LAB URINALYSIS - AUTOMATED METHOD 05/22/2025 2:49 PM EDT [facility] Glucose, Urine Negative Negative mg/dL LAB URINALYSIS - AUTOMATED METHOD [facility] Ketones, Urine Negative Negative mg/dL LAB URINALYSIS - AUTOMATED METHOD 05/22/2025 2:49 PM EDT [facility] Urobilinogen, Urine 0.2 0.2 - 1.0 mg/dL LAB URINALYSIS - AUTOMATED METHOD 05/22/2025 2:49 PM EDT [facility] Bilirubin, Urine Negative Negative LAB URINALYSIS - AUTOMATED METHOD 05/22/2025 2:49 PM EDT [facility] Blood, Urine Negative Negative LAB URINALYSIS - AUTOMATED METHOD 05/22/2025 2:49 PM EDT [facility] Urine Urine specimen obtained by clean catch procedure / Unknown Non-blood Collection / Unknown 05/22/2025 2:26 PM EDT 05/22/2025 2:43 PM EDT us Bryon Morgan MD LAB URINE ORDERABLES Final Resul t [facility] [address] [place] [address], [place] [phone] * XR Chest 1 View (05/22/2025 1:52 [...] Signed Date: 05/22/2025 14:58 ET Workstation ID: [id number] Transcribed By: Self Edit Transcribed Date: 05/22/2025 [...] Signed Date: 05/22/2025 14:58 ET Workstation ID: [id number] Transcribed By: Self Edit Transcribed Date: 05/22/2025 [...] Signed Date: 05/22/2025 13:26 ET Workstation ID: [id number] Transcribed By: Self Edit Transcribed Date: 05/22/2025 [...] Signed Date: 05/22/2025 13:26 ET Workstation ID: [id number] Transcribed By: Self Edit Transcribed Date: 05/22/2025 13:23 ET Bryon Mrogan MD [facility] CT PROCEDURES Final Result * CT Angio [...] Signed Date: 05/22/2025 13:29 ET Workstation ID: [id number] Transcribed By: Self Edit Transcribed Date: 05/22/2025 13:29 ET Narrative 05/22/2025 1:29 PM EDT PROCEDURE: CTA HEAD AND NECK INDICATION: left arm weakness TECHNIQUE: CTA of the head and neck with intravenous contrast. Multiplanar reformats. The examination was performed utilizing dose reduction techniques.3-D or MIP images were produced with postprocessing on an independent computer workstation. 90cc Omnipaque 370 injected. Scan was analyzed using [employer] Contact AI based computer aided triage software. [...] is patent. Vertebrobasilar system is patent. Proximal composition mixer are patent. Major dural venous sinuses opacify [...] 90cc Omnipaque 370 injected. Scan wasanalyzed using [employer] AI based computer aided triage software. [...] is patent. Vertebrobasilar system is patent. Proximal composition mixer are patent. Major dural venous sinuses opacify [...] Signed Date: 05/22/2025 13:29 ET Workstation ID: [id number] Transcribed By: Self Edit Transcribed Date: 05/22/2025 13:29 ET us Bryon Morgan MD IMG CT PROCEDURES Final Result * Electrocardiogram, 12 lead (05/22/2025 12:49 PM EDT) [facility] Ventricular Rate ECG 56 BPM GEMUSE Atrial Rate 56 BPM GEMUSE P-R Interval 158 ms GEMUSE QRS Duration 78 ms GEMUSE Q-T Interval 432 ms GEMUSE QTc 416 ms GEMUSE P Wave [place] -2 degrees GEMUSE R [place] 18 degrees GEMUSE T [place] 14 degrees GEMUSE ECG Interpretation Sinus bradycardia Otherwise normal ECG No previous ECGs available Confirmed by TREVA KINCAID ([id number]) on 05/22/2025 5:47:39 PM GEMUSE 05/22/2025 12:4 9 PM EDT 05/22/2025 5:47 PM EDT us Bryon Morgan MD ECG ORDERABLES Final Result GEMUSE * Troponin I high sensitivity (NOW) (05/22/2025 12:38 PM EDT) [facility] High Sensitivity Troponin I 6 <=54 ng/L LAB CHEMISTRY METHOD 05/22/2025 2:05 PM EDT [facility] Blood Venous blood specimen / Unknown Venipuncture / Unknown 05/22/2025 12:38 PM EDT 05/22/2025 12:49 PM EDT Narrative [facility] - 05/22/2025 2:05 PM EDT High levels of biotin in samples may falsely decrease hsTroponin values. Use caution when interpreting hsTroponin results in patients taking biotin who exhibit renal impairment (eGFR <60) or in patients taking more than 20 mg/day of biotin. us Bryon Morgan MD LAB BLOOD ORDERABLES Final Resul t Performing Organization Address [facility] Co de Phone Number [facility] [address] [place] [address], [place] [phone] * Activated partial thromboplastin time (05/22/2025 12:38 PM EDT) aPTT 33.7 24.1 - 39.3 sec LAB COAGULATION METHOD 05/22/2025 1:13 PM EDT [facility] Blood Venous blood specimen / Unknown Venipuncture / Unknown 05/22/2025 12:38 PM EDT 05/22/2025 12:49 PM EDT us Bryon Morgan MD LAB BLOOD ORDERABLES Final Resul t [facility] [address] [place] [address], [place] [phone] * Prothrombin time with INR (05/22/2025 12:38 PM EDT) Protime 12.2 10.6 - 13.9 sec LAB COAGULATION METHOD 05/22/2025 1:13 PM EDT [facility] INR 1.0 LAB COAGULATION METHOD 05/22/2025 1:13 PM EDT [facility] Blood Venous blood specimen / Unknown Venipuncture / Unknown 05/22/2025 12:38 PM EDT 05/22/2025 12:49 PM EDT us Bryon Morgan MD LAB BLOOD ORDERABLES Final Resul t Performing Organization Address [facility]/ZIP Co de Phone Number [facility] [address] [place] [address], [place] [phone] * (ABNORMAL) POCT Glucose, blood (05/22/2025 12:30 PM EDT) [facility] Signature Glucose POCT 103(H) 70 - 100 mg/dL 05/22/2025 12:30 PM EDT [facility] Blood Capillary blood specimen / Unknown 05/22/2025 12:30 PM EDT 05/22/2025 12:32 PM EDT Bryon Morgan MD LAB POINT OF CARE TE ST DOCKED DEVICE UNSOLICITED RESULTS Final Result Performing Organization Address City/[facility]/ZIP Co de Phone Number [facility] [address] [place] [address], [place] [phone] from Last 3 Months Insurance [facility] MEDIC[facility] Member Subscriber Plan / Payer (Ef fective 2017-Present) Name:TEMITOPE DREW Relation to Subscriber:Self Name:Temitope Drew Payer ID:[id number] Group ID:[id number] Type:Not on file Address: [facility] [address] [phone] MEDICARE Advance Directives Documents on File Type Date Recorded 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 Proxy * Full Code - Default (Latest [...] Relationship Healthcare Agent Relationshi p Communication [facility]EC[facility] Care Agent Care Teams Vac Press Operator Relationship Specialty Start Date End Date Tena Carrillo MD [address] [place] [address] , [address] [facility] D/B/A: [facility] [place], [place] PCP - General Internal Medicine 12/10/24
== END 2025-05-30 11:30 | disposition home or self-care (01) ==
LOC: HO.HMCH 10:55
PROVIDERS: PCP Internal Medicine; Visit Provider Nurse Practitioner Family
DX: G45.9 Transient cerebral ischemic attack, unspecified (principal)

== ENCOUNTER → 2025-05-30 10:55 | Outpatient (BNVA) | payer OTHER, SELFPAY | PROVIDERS: PCP Internal Medicine; Visit Provider Nurse Practitioner Family | DX: I10 Essential (primary) hypertension (principal); E78.5 Hyperlipidemia, unspecified; F32.A Depression, unspecified; G47.00 Insomnia, unspecified; Z86.73 Personal history of transient ischemic attack (TIA), and cerebral infarction without residual deficits | CPT/HCPCS: 96127; 99212 ==

== ENCOUNTER → 2025-07-08 11:00 | Outpatient (REF) | payer OTHER, SELFPAY ==
--- NOTE | 2025-07-08 11:04 | CA_ITS ---
Transthoracic Echocardiogram Patient (Last, First, Middle): Temitope Christensen E Gender: F Date of : 1965 Age: 60 Procedure Date: 07/08/2025 Procedure Type: Transthoracic Echocardiogram Location: OP Height: 149.86 cm Weight: 88.45 kg BSA: 1.82 m2 Heart Rate: bpm BP: 118 / 72 mmHg Putty Maker: TO Referring MD: Pastora Amaya LICENSE REGISTRATION EXAMINERLucian Outside Sales Account Representative: Judd Doss MD Symptoms: R00.2 - Palpitations Study Quality: Adequate ECG Rhythm: Sinus Conclusions: - Essentially normal study Findings Left Ventricle Normal left ventricular size, thickness, and systolic function. The visually estimated ejection fraction is between 55-60%. Diastolic function is normal for age. Right Ventricle Normal right ventricular cavity size and systolic function. Atria Both atria are normal in size. There is no evidence of interatrial shunt. Aortic Valve Normal aortic valve structure and function. There is no aortic valve stenosis. There is no aortic valve regurgitation. Mitral Valve Normal mitral valve structure and function. There is trace mitral valve regurgitation. There is no mitral valve stenosis. Pulmonic Valve The pulmonic valve is likely normal. Tricuspid Valve Normal tricuspid valve structure. Tricuspid regurgitation envelope is inadequate for calculation of right ventricular systolic pressure. Normal right atrial pressure. Great Vessels All visible segments of the aorta are normal in size. The pulmonary artery was not well visualized. Venous The inferior vena cava is normal in size and collapses greater than 50% with inspiration. Pericardium/Pleural There is no evidence of pericardial effusion. Prior Study Comparison No significant change compared to prior study dated: 10/15/2021. Measurements 2D Linear Measurements IVSd: 0.74 0.6-0.9/0.6-1.0 cm LVIDd: 4.55 3.9-5.3/4.2-5.9 cm LVIDd Index: 2.50 2.4-3.2/2.2-3.1 cm/m2 LVIDs: 2.78 2.0-3.6 cm LVPWd: 0.89 0.7-1.1 cm LA Diam: 3.40 2.7-3.8/3.0-4.0 cm LAIDs Index: 1.87 1.5-2.3 cm/m2 LV Mass: 147.63 67-162/88-224 g LV Mass Index: 81.11 43-95/49-115 g/m2 LVOT Diam: 1.90 3.0+(-)1.3 cm 2D Systolic Function EF 4C: 54.20 >55% EF 2C: 62.90 >55% EF BiP: 58.80 >55% Mitral Valve MV Pk E: 0.72 MV PK A: 0.37 MV Decel Time: 217.00 E/A: 1.90 E'Lateral: 8.81 E'Medial: 7.51 E/E' Med: 9.60 E/E' Lat: 8.20 PHT: 64.00 MVA PHT: 3.44 Decel [place]: 3.33 Aortic Valve AoV Pk Doc: 1.79 AoV Mn Doc: 1.13 AoV VTI: 0.39 AoV Pk Grad: 13.00 Aov Mn Grad: 6.00 RUBI Cont.VTI: 1.76 LVOT LVOT Pk Doc: 1.08 LVOT Mn Doc: 0.69 LVOT VTI: 0.24 LVOT Pk Grad: 5.00 LVOT Mn Grad: 2.00 LVOT Diam: 1.90 LVOT Area: 2.84 Diastolic Function MV Pk E: 0.72 MV Pk A: 0.37 E/A: 1.90 E'Medial: 7.51 E/E' Med: 9.60 E' Laterial: 8.81 E/E' Lat: 8.20 Right Ventricle TAPSE (mm): 26.60 TVS' Doc: 10.90 Tricuspid Valve RA Press: 3.00 Great Vessels Aorta Sinus of Valsalva: 2.42 2.0-3.5 cm Ao Asc: 2.60 2.1-3.4 cm Ao Arch: 2.50 Updated in Other Vendor System with Status of Final Judd Doss MD electronically signed on 07/09/2025 3:26:41 PM with status of Final
== END ==
LOC: HO.CARD 11:00
PROVIDERS: PCP Internal Medicine; Visit Provider Nurse Practitioner Family
DX: R00.2 Palpitations (principal); I10 Essential (primary) hypertension
CPT/HCPCS: 93242; 93306

== ENCOUNTER → 2025-07-08 11:04 | Outpatient (BNV) | payer OTHER, SELFPAY | PROVIDERS: PCP Internal Medicine; Visit Provider Internal Medicine Cardiovascular Disease | DX: R00.2 Palpitations (principal) | CPT/HCPCS: 93306 ==

== ENCOUNTER 2025-07-23 09:39 | Outpatient (AMB) | payer OTHER, SELFPAY ==
--- OUTSIDE RECORDS SUMMARY | 2025-07-23 09:46 | XMS_ITS | Clinical Summary ---
Author Organization [address] [facility] Address [address] [place] [address] Phone Care Team Providers Care Customer Account Administrator Name Role Phone Tena Carrillo MD Primary Care Provider [phone] Allergies No known active allergies Medications albuterol HFA (PROAIR HFA ; PROVENTIL HFA ; VENTOLIN HFA) 90 mcg/actuation inhaler 02/07/2025 Active atorvastatin (LIPITOR) 10 mg tablet Take 1 tablet (10 mg total) by mouth 1 (one) time each day after lunch. 11/03/2021 Active DULoxetine (CYMBALTA) [address] capsule Take 1 capsule (60 mg total) by mouth 1 (one) time each day. 05/21/2025 Active hydroCHLOROthia zide 12.5 mg tablet Take 1 tablet (12.5 mg total) by mouth 1 (one) time each day. 11/03/2021 Active meloxicam (MOBIC) 15 mg tablet Take 0.5 tablets (7.5 mg total) by mouth 1 (one) time each day if needed for mild pain. 05/15/2025 Active metoprolol succinate (TOPROL-XL) 25 mg 24 hr tablet Take 1 tablet (25 mg total) by mouth 1 (one) time each day. 04/17/2025 Active Gemtesa 75 mg tablet tablet Take 1 tablet (75 mg total) by mouth 1 (one) time each day. 05/05/2025 Active aspirin 81 mg EC tablet Take 1 tablet (81 mg total) by mouth 1 (one) time each day. 30 each 11 05/24/2025 Active Active Problems Problem Noted Date Diagnosed Date Transient neurological symptoms 05/22/2025 HTN (hypertension) 05/22/2025 HLD (hyperlipidemia) 05/22/2025 Depressed 05/22/2025 Overactive bladder 05/22/2025 Encounters Date Type Department Care Team Description 06/03/2025 Telephone [facility] [address] [place] [address] Marcelo Farrell MD 05/22/2025 12:25 PM EDT - 05/23/2025 5:48 PM EDT Hospital Encounter [facility] [address] [place] [address] Bryon Morgan MD Flores, Carlos M, MD [...] your loved ones. For example, child welfare specialist or elderly care for an older adult? [...] on file Sexual Orientation Not on file Last Filed Vital Signs Vital Sign Reading [...] LAB CHEMISTRY METHOD 05/23/2025 3:57 PM EDT [facility] Triglycerides 69 0 - 150 mg/dL LAB CHEMISTRY METHOD 05/23/2025 3:57 PM EDT [facility] HDL 63 >=40 mg/dL LAB CHEMISTRY METHOD 05/23/2025 3:57 PM EDT [facility] LDL Calculated 95 0 - 100 mg/dL LAB CHEMISTRY METHOD 05/23/2025 3:57 PM EDT [facility] Comment:Estimated LDL Calcul ated using equation: Total cholesterol - HDL cholesterol - (Triglycerides/5) VLDL Cholesterol Jay 13.8 mg/dL LAB CHEMISTRY METHOD 05/23/2025 3:57 PM EDT [facility] Non HDL Chol. (LDL+VLDL) 109 <145 mg/dL LAB CHEMISTRY METHOD 05/23/2025 3:57 PM EDT [facility] Chol/HDL Ratio 2.7 0.0 - 4.4 LAB CHEMISTRY METHOD 05/23/2025 3:57 PM [facility] Blood Venous blood specimen / Unknown Venipuncture / Unknown 05/23/2025 5:36 AM EDT 05/23/2025 6:54 AM EDT us Marcelo Barnes MD LAB BLOOD ORDERABLES F inal Result [facility] [address] [place] [address], * (ABNORMAL) CBC auto differential (05/23/2025 5:36 AM EDT) Only the most recent of2 resultswithin the time period is included. WBC 5.4 4.8 - 10.8 K/mcL LAB HEMETOLOGY METHOD 05/23/2025 7:06 AM EDT [facility] RBC 4.10 3.80 - 4.80 M/mcL LAB HEMETOLOGY METHOD 05/23/2025 7:06 AM EDT [facility] Hemoglobin 12.7 11.5 - 16.0 g/dL LAB HEMETOLOGY METHOD 05/23/2025 7:06 AM EDT [facility] Hematocrit 38.9 35.0 - 47.0 % LAB HEMETOLOGY METHOD 05/23/2025 7:06 AM EDT [facility] MCV 94.6 79.0 - 98.0 FL LAB HEMETOLOGY METHOD 05/23/2025 7:06 AM EDT [facility] MCH 30.9 27.0 - 32.0 pcg LAB HEMETOLOGY METHOD 05/23/2025 7:06 AM EDT [facility] MCHC 32.6 32.0 - 37.0 g/dL LAB HEMETOLOGY METHOD 05/23/2025 7:06 AM EDT [facility] RDW 12.3 11.0 - 15.0 % LAB HEMETOLOGY METHOD 05/23/2025 7:06 AM [facility] Platelets 219 130 - 400 K/mcL LAB [facility]OLOG[facility] MPV 11.7(H) 7.0 - 11.0 FL LAB HEMETOLOGY METHOD 05/23/2025 7:06 AM [facility] NRBC 0.0 <1.0 % LAB HEMETOLOGY METHOD 05/23/2025 7:06 AM [facility] NRBC Absolute 0.00 <0.10 K/mcL LAB HEMETOLOGY METHOD 05/23/2025 7:06 AM [facility] Neutrophils Relative 52.8 % LAB HEMETOLOGY METHOD 05/23/2025 7:06 AM [facility] Lymphocytes Relative 33.1 % LAB HEMETOLOGY METHOD 05/23/2025 7:06 AM [facility] Monocytes Relative 9.8 % LAB HEMETOLOGY METHOD 05/23/2025 7:06 AM [facility] Eosinophils Relative 3.5 % LAB HEMETOLOGY METHOD 05/23/2025 7:06 AM [facility] Basophils Relative 0.6 % LAB HEMETOLOGY METHOD 05/23/2025 7:06 AM [facility] Immature Granulocytes Relative 0.2 % LAB HEMETOLOGY METHOD 05/23/2025 7:06 AM [facility] Neutrophils Absolute 2.86 1.50 - 7.00 K/mcL LAB HEMETOLOGY METHOD 05/23/2025 7:06 AM [facility] Lymphocytes Absolute 1.79 1.00 - 5.00 K/mcL LAB HEMETOLOGY METHOD 05/23/2025 7:06 AM [facility] Monocytes Absolute 0.53 0.20 - 1.00 K/mcL LAB HEMETOLOGY METHOD 05/23/2025 7:06 AM [facility] Eosinophils Absolute 0.19 0.00 - 0.50 K/mcL LAB HEMETOLOGY METHOD 05/23/2025 7:06 AM EDT [facility] Basophils Absolute 0.03 0.00 - 0.20 K/mcL LAB HEMETOLOGY METHOD 05/23/2025 7:06 AM EDT [facility] Immature Granulocytes Absolute 0.01 0.00 - 0.03 K/[facility] LAB HEMETOLOGY METHOD 05/23/2025 7:06 AM EDT [facility] Blood Venous blood specimen / Unknown Venipuncture / Unknown 05/23/2025 5:36 AM EDT 05/23/2025 6:54 AM EDT us Arianna Abraham DEPENDENCY PROGRAM DIRECTOR LAB BLOOD ORDERABLES Final Resu lt Performing Organization Address [facility]/ZIP Co de Phone Number [facility] [address] [place] [address], [place] [phone] * Magnesium (05/23/2025 5:36 AM EDT) Only the most recent of2 resultswithin the time period is included. Magnesium 2.0 1.9 - 2.6 mg/dL LAB CHEMISTRY METHOD 05/23/2025 8:12 AM EDT [facility] Blood Venous blood specimen / Unknown Venipuncture / Unknown 05/23/2025 5:36 AM EDT 05/23/2025 6:54 AM EDT us Arianna Abraham DEPENDENCY PROGRAM DIRECTOR LAB BLOOD ORDERABLES Final Resu lt Performing Organization Address City/[facility]/ZIP Co de Phone Number [facility] [address] [place] [address], [place] [phone] * Basic metabolic panel (05/23/2025 5:36 AM EDT) Only the most recent of2 resultswithin the time period is included. Sodium 138 133 - 145 mmol/L LAB CHEMISTRY METHOD 05/23/2025 8:12 AM EDT [facility] Potassium 4.4 3.5 - 5.5 mmol/L LAB CHEMISTRY METHOD 05/23/2025 8:12 AM [facility] Chloride 102 96 - 110 mmol/L LAB CHEMISTRY METHOD 05/23/2025 8:12 AM [facility] CO2 31 21 - 32 mmol/L LAB CHEMISTRY METHOD 05/23/2025 8:12 AM [facility] Anion Gap 5 3 - 11 LAB CHEMISTRY METHOD 05/23/2025 8:12 AM [facility] Glucose 99 70 - 100 mg/dL LAB CHEMISTRY METHOD 05/23/2025 8:12 AM [facility] BUN 21 5 - 25 mg/dL LAB CHEMISTRY METHOD 05/23/2025 8:12 AM [facility] Creatinine 0.72 0.50 - 1.10 mg/dL LAB CHEMISTRY METHOD 05/23/2025 8:12 AM [facility] eGFR 95 >=60 mL/min/1. 73m2 LAB CHEMISTRY METHOD 05/23/2025 8:12 AM [facility] Comment:Calculation based on the Chronic Kidney Disease Epidemiology Collaboration (CKD-EPI) equation refit without adjustment for race. BUN/Creatinine Ratio 29.2 LAB CHEMISTRY METHOD 05/23/2025 8:12 AM [facility] Calcium 9.5 8.5 - 10.5 mg/dL LAB CHEMISTRY METHOD 05/23/2025 8:12 AM [facility] Blood Venous blood specimen / Unknown Venipuncture / Unknown 05/23/2025 5:36 AM EDT 05/23/2025 6:54 AM EDT us Arianna Abraham NP LAB BLOOD ORDERABLES Final Resu lt [facility] [address] [place] [address], * MR Brain wo Contrast (05/22/2025 7:09 [...] MD on 05/22/2025 19:31:23 Arianna Abraham NP [facility] [place] PROCEDURES Final Result * Urinalysis with reflex microscopic (05/22/2025 2:26 PM EDT) Specific [place] Urine 1.026 1.003 - 1.030 LAB URINALYSIS - AUTOMATED METHOD 05/22/2025 2:49 PM EDT [facility] pH, Urine 6.5 5.0 - 8.0 pH LAB URINALYSIS - AUTOMATED METHOD 05/22/2025 2:49 PM EDT [facility] Leukocytes, Urine Negative Negative LAB URINALYSIS - AUTOMATED METHOD 05/22/2025 2:49 PM EDT [facility] Nitrite, Urine Negative Negative LAB URINALYSIS - AUTOMATED METHOD 05/22/2025 2:49 PM EDT [facility] Protein, Urine Negative <=Trace mg/dL LAB URINALYSIS - AUTOMATED METHOD 05/22/2025 2:49 PM EDT [facility] Glucose, Urine Negative Negative mg/dL LAB URINALYSIS - AUTOMATED METHOD 05/22/2025 2:49 PM EDT [facility] Ketones, Urine Negative Negative mg/dL LAB URINALYSIS - AUTOMATED METHOD 05/22/2025 2:49 PM EDT [facility] Urobilinogen, Urine 0.2 0.2 - 1.0 mg/dL LAB URINALYSIS - AUTOMATED METHOD 05/22/2025 2:49 PM EDT [facility] Bilirubin, Urine Negative Negative LAB URINALYSIS - AUTOMATED METHOD 05/22/2025 2:49 PM EDT [facility] Blood, Urine Negative Negative LAB URINALYSIS - AUTOMATED METHOD 05/22/2025 2:49 PM EDT [facility] Urine Urine specimen obtained by clean catch procedure / Unknown Non-blood Collection / Unknown 05/22/2025 2:26 PM EDT 05/22/2025 2:43 PM EDT us Bryon Morgan MD LAB URINE ORDERABLES Final Resul t [facility] [address] [place] [address], * XR Chest 1 View (05/22/2025 1:52 [...] Signed Date: 05/22/2025 14:58 ET Workstation ID: [id number] Transcribed By: Self Edit Transcribed Date: 05/22/2025 [...] Signed Date: 05/22/2025 14:58 ET Workstation ID: [id number] Transcribed By: Self Edit Transcribed Date: 05/22/2025 [...] Signed Date: 05/22/2025 13:26 ET Workstation ID: [id number] Transcribed By: Self Edit Transcribed Date: 05/22/2025 [...] Signed Date: 05/22/2025 13:26 ET Workstation ID: [id number] Transcribed By: Self Edit Transcribed Date: 05/22/2025 13:23 ET Bryon Morgan MD [facility] [place] PROCEDURES Final Result * CT Angio [...] Signed Date: 05/22/2025 13:29 ET Workstation ID: [id number] Transcribed By: Self Edit Transcribed Date: 05/22/2025 13:29 ET Narrative 05/22/2025 1:29 PM EDT PROCEDURE: CTA HEAD AND NECK INDICATION: left arm weakness TECHNIQUE: CTA of the head and neck with intravenous contrast. Multiplanar reformats. The examination was performed utilizing dose reduction techniques.3-D or MIP images were produced with postprocessing on an independent computer workstation. 90cc Omnipaque 370 injected. Scan was analyzed using Venafi Contact AI based computer aided triage software. [...] is patent. Vertebrobasilar system is patent. Proximal financial services sales representative are patent. Major dural venous sinuses opacify [...] 90cc Omnipaque 370 injected. Scan wasanalyzed using Venafi Contact AI based computer aided triage software. [...] is patent. Vertebrobasilar system is patent. Proximal financial services sales representative are patent. Major dural venous sinuses opacify [...] Signed Date: 05/22/2025 13:29 ET Workstation ID: [id number] Transcribed By: Self Edit Transcribed Date: 05/22/2025 13:29 ET Bryon Morgan MD IMG CT PROCEDURES Final Result * Electrocardiogram, 12 lead (05/22/2025 12:49 PM EDT) [facility] Ventricular Rate ECG 56 BPM GEMUSE Atrial Rate 56 BPM GEMUSE P-R Interval 158 ms GEMUSE QRS Duration 78 ms GEMUSE Q-T Interval 432 ms GEMUSE QTc 416 ms GEMUSE P Wave [place] -2 degrees GEMUSE R [place] 18 degrees GEMUSE T [place] 14 degrees GEMUSE ECG Interpretation Sinus bradycardia Otherwise normal ECG No previous ECGs available Confirmed by TREVA KINCAID ([id number]) on 05/22/2025 5:47:39 PM GEMUSE 05/22/2025 12:4 9 PM EDT 05/22/2025 5:47 PM EDT Bryon Morgan MD ECG ORDERABLES Final Result GEMUSE * Troponin I high sensitivity (NOW) (05/22/2025 12:38 PM EDT) [facility] High Sensitivity Troponin I 6 <=54 ng/L LAB CHEMISTRY METHOD 05/22/2025 2:05 PM EDT [facility] Blood Venous blood specimen / Unknown Venipuncture / Unknown 05/22/2025 12:38 PM EDT 05/22/2025 12:49 PM EDT Narrative [facility] - 05/22/2025 2:05 PM EDT High levels of biotin in samples may falsely decrease hsTroponin values. Use caution when interpreting hsTroponin results in patients taking biotin who exhibit renal impairment (eGFR <60) or in patients taking more than 20 mg/day of biotin. us Broyn Morgan MD LAB BLOOD ORDERABLES Final Resul t [facility] [address] [place] [address], [place] [phone] * Activated partial thromboplastin time (05/22/2025 12:38 PM EDT) aPTT 33.7 24.1 - 39.3 sec LAB COAGULATION METHOD 05/22/2025 1:13 PM EDT [facility] Blood Venous blood specimen / Unknown Venipuncture / Unknown 05/22/2025 12:38 PM EDT 05/22/2025 12:49 PM EDT us Bryon Morgan MD LAB BLOOD ORDERABLES Final Resul t [facility] [address] [place] [address], [place] [phone] * Prothrombin time with INR (05/22/2025 12:38 PM EDT) Protime 12.2 10.6 - 13.9 sec LAB COAGULATION METHOD 05/22/2025 1:13 PM EDT [facility] INR 1.0 LAB COAGULATION METHOD 05/22/2025 1:13 PM EDT [facility] Blood Venous blood specimen / Unknown Venipuncture / Unknown 05/22/2025 12:38 PM EDT 05/22/2025 12:49 PM EDT us Bryon Morgan MD LAB BLOOD ORDERABLES Final Resul t [facility] [address] [place] [address], [place] [phone] * (ABNORMAL) POCT Glucose, blood (05/22/2025 12:30 PM EDT) [facility] Glucose POCT 103(H) 70 - 100 mg/dL 05/22/2025 12:30 PM EDT [facility] Blood Capillary blood specimen / Unknown 05/22/2025 12:30 PM EDT 05/22/2025 12:32 PM EDT us Bryon Morgan MD LAB POINT OF CARE TE ST DOCKED DEVICE UNSOLICITED RESULTS Final Result Performing Organization Address [facility]/ZIP Co de Phone Number [facility] [address] [place] [address], [place] [phone] from Last 3 Months Insurance [facility] MEDICARE Member Subscriber Plan / Payer (Ef fective 2017-Present) Name:TEMITOPE DREW Relation to Subscriber:Self Name:Temitope Drew Payer ID:[id number] Group ID:[id number] Type:Not on file Address: [address] [id number] Advance Directives Documents on File Type Date Recorded Patient Cloth Washer Expl anation Advance Directives and Living Will 05/23/2025 12:23 PM Amber [facility] Proxy * Full Code - Default (Latest [...] Agents on File Name Relationship Healthcare Agent [facility] Communication Amber Ortiz [facility] Health Care Agent Care Teams Customer Account Administrator Relationship Specialty Start Date End Date Tena Carrillo MD [address] [place] [address] , [address] [facility] D/B/A: [facility] KENNEDY Ramsey PCP - General Internal Medicine 12/10/24
--- OUTSIDE RECORDS SUMMARY | 2025-07-23 09:46 | XMS_ITS | Patient Health Record ---
Author Organization [facility] Juan Luis [facility] Address [address] [place] [address] Care Team Providers Care Clerical Warehouseman Name Role Phone Torey Irizarry MD Primary Care Provider [place] Loni Stallings Unavailable [phone] Allergies No Known Allergies Reason For Referral [...] Insured Coverage Start Date Coverage End Date [facility] [employer] Claims [address] [place] [place] [id number] Temitope Tom Self - patient is the insured Medical (General) History Medical History History ICD Code Back,Hip,and Knee pain High blood pressure Surgical History Surgery Date(Month/Year)
[2025-07-23 09:58] VITALS: BP 128/66; PULSE 67; RESP 18; O2SAT 99; BMI 36.8
--- NOTE | 2025-07-23 09:58 | A.OFFPC_ITS ---
Vital Signs 07/23/25 09:58 Height 4 ft 11 in Weight 182 lb 4 oz BMI 36.8 BP 128/66 Blood Pressure Location Lt brachial Position Sitting Respiration 18 Pulse 67 Pulse Source Pulse Oximeter Temp Source Temporal Artery Scan Pulse Oximetry (%) 99 Oxygen Delivery Method Room Air Intake Visit Reasons: Annual Exam Supervisor Smoke Control Required: No Accompanied by: Self / Same As Patient Allergies No Known Allergies (No Known Allergies*) Allergy (Verified 07/23/25 10:21) Medication List - Last Reconciled 07/23/25 by Tena Carrillo MD acetaminophen 325 mg PO QID PRN albuterol sulfate 90 mcg/actuation 2 puffs inhalation Q4H PRN aspirin 81 mg PO DAILY atorvastatin 10 mg PO DAILY blood pressure monitor As directed blood pressure test kit-wrist As directed duloxetine 60 mg PO DAILY duloxetine 60 mg PO DAILY hydrochlorothiazide 12.5 mg PO DAILY meloxicam 15 mg PO DAILY PRN 7 days metoprolol succinate ER 25 mg PO DAILY [neck pillow As directed] sulindac 200 mg PO BID trazodone 100 mg PO BEDTIME vibegron (Gemtesa) 75 mg PO DAILY 90 days Tobacco use date assessed: 07/23/25 Dental Screening Dental Screen Date: 07/23/25 Did you have a dental visit in the last 12 months?: Yes Did you have a dental problem in the last 6 months where you did not have access to dental care?: No Was dental information given to patient?: Patient has dentist HPI HPI Comments History of Present Illness Details This is a 60-year-old female with pure hypercholesterolemia and obesity that comes for her physical exam. Flu vaccine received this season. Had a colonoscopy over 10 years ago which was normal and I will order a Cologuard. Mammogram done this year. No need for Pap smear due to hysterectomy for benign reasons. She has a BMI of 36.8 and would like to be referred to [facility] unit adjuster. [facility] Medical History (Updated 07/23/25 @ 10:40 by Tena Carrillo MD) Ventricular tachyarrhythmia TIA (transient ischemic attack) Right flank pain Burning with urination Obesity Hypertension Asthma Hyperlipidemia Surgical History History of vein stripping History of hysterectomy History of tubal ligation Family History Father Alcoholism Substance use disorder Mother Diabetes Paternal Grandfather CVD (cardiovascular disease) Social History Housing: Apartment Alcohol intake: never Patient Tobacco Use Status: Never used Tobacco e-Cigarette/Vaping Use: Never Used Second Hand Smoke Exposure: No service: No Current occupational status: disabled Cognitive needs: No Hearing needs: No Vision needs: No Questionnaire PHQ-9 Over the last 2 weeks, how often have you been bothered by any of the following problems? 1. Little interest or pleasure in doing things: more than half the days 2. Feeling down, depressed, or hopeless: more than half the days 3. Trouble falling or staying asleep, or sleeping too much: several days 4. Feeling tired or having little energy: not at all 5. Poor appetite or overeating: several days 6. Feeling bad about yourself - or that you are a failure or have let yourself or your family down: several days 7. Trouble concentrating on things, such as reading the newspaper or watching television: more than half the days 8. Moving or speaking so slowly that other people could have noticed. Or the opposite - being so fidgety or restless that you have been moving around a lot more than usual: not at all 9. Thoughts that you would be better off or of hurting yourself in some way: not at all Total score: 9 Depression Screening Interpretation: Positive Depression Screening Follow-up: Existing condition, In treatment, Community Mental Health Worker F/U and Follow- up Visit Requested Depression Screening Done: Yes 34630 - PHQ-9 Billing: Yes Source: Developed by Drs. Rizwan Garcia, Miroslava Saez, Rigo Mccoy and colleagues, with an educational wilfredo from [employer]. Thrive Questionnaire Date Thrive assessed: 07/23/25 I am a: Patient What is your living situation today?: I have a steady place to live Within the past 12 months, did the food you bought not last and you didn't have the money to get more?: I choose not to answer this question Within the past 12 months, did you worry whether your food would run out before you got money to buy more?: I choose not to answer this question Do you have trouble paying for medicines?: No Do you have trouble getting transportation to medical appointments?: No Do you have trouble paying your heating and electricity bill?: No Do you have trouble taking care of your child, family member or friend?: I choose not to answer this question Do you have trouble with day-to-day activities such as bathing, preparing meals, shopping, managing finances, etc.?: No Are you currently unemployed and looking for a job?: I choose not to answer this question Are you interested in more education?: I choose not to answer this question Please select the resources that you would like help with: Transportation Currently or been in a relationship where the following occur: I choose not to answer THRIVE Score: 0 AUDIT C Alcohol Use Questionnaire (AUDIT-C) 1. How often do you have a drink containing alcohol?: Never 3. How often do you have six or more drinks on one occasion?: Never Total Score: 0 Score Reviewed/Action Taken: No RUBIA-7 AMB Questionnaire RUBIA-7 Date RUBIA - 7 assessed: 07/23/25 Worrying too much about different things: 1 = Several days Trouble relaxin = Several days Being so restless that it is hard to sit still: 0 = Not at all Becoming easily annoyed or irritable: 1 = Several days Feeling afraid as if something awful might happen: 0 = Not at all Source: Developed by Drs. Rizwan Garcia, Miroslava Saez, Rigo Mccoy and colleagues, with an educational wilfredo from [employer]. Review of Systems Const All systems reviewed & are unremarkable except as noted in HPI and below Card Denies chest pain at rest, Denies chest pain with activity, Denies edema, Denies irregular heart rhythm, Denies claudication, Denies dyspnea, Denies dyspnea on exertion, Denies orthopnea, Denies paroxysmal nocturnal dyspnea and Denies slow heart rate Resp Denies cough, Denies dyspnea and Denies dyspnea on exertion Physical exam (Primary Care) Vital Signs: Last Vital Signs Pulse 67 07/23/25 09:58 Resp 18 07/23/25 09:58 BP 128/66 07/23/25 09:58 Pulse Ox 99 07/23/25 09:58 Oxygen Delivery Method Room Air 07/23/25 09:58 BMI result Body Mass Index 36.8 Tobacco/Smoking Status: Tobacco use Status Tobacco use date assessed 07/23/25 07/23/25 10:07 Patient Tobacco Use Status Never used Tobacco 07/23/25 10:07 Tobacco use type 01/09/25 12:44 e-Cigarette/Vaping Use Never Used 07/23/25 10:07 Depression Screening Interpretation: Positive Depression Screening Follow-up: Existing condition, In treatment, Community Mental Health Worker F/U and Follow- up Visit Requested Thrive Assessment: Date of Thrive Assessment Date Thrive assessed 07/23/25 07/23/25 10:07 Currently or been in a relationship where the following occur: I choose not to answer HENMT Head: Yes normal to inspection, Yes normocephalic and Yes atraumatic Ears: external ears normal Eyes General: appearance normal, both eyes and all related structures Eyelids: Yes eyelids normal Conjunctivae: conjunctivae normal Neck Neck: Yes normal visual inspection and Yes supple Resp Effort & Inspection: normal respiratory effort Auscultation: clear to auscultation bilaterally Cardio Jugular venous distension: no JVD Rate: regular rate Rhythm: regular rhythm Heart sounds: S1 normal heart sound present and S2 normal heart sound present GI Inspection: Yes normal to inspection Palpation (GI): Soft to palpation and nontender Auscultation: normal bowel sounds Skin General skin exam: no rashes or lesions noted Neuro General: no focal motor deficits Extrem General: Yes full ROM Psych Appearance: grossly normal Coding Level of Care Code Est Pt Level 3 (05107) Est Pt Prev Care 40-64y(27165) Diagnoses Physical exam Z00.00 Mild recurrent major depression F33.0 Hyperlipidemia E78.5 Obesity E66.9 Additional Codes PHQ-9 - 54704 - PHQ-9 Billing: Yes ([id number]) Time Spent (min) 33 Assessment & Plan Assessment & Plan (1) Physical exam: Code(s): Z00.00 - Encounter for general adult medical examination without abnormal findings Category: Medical (2) Mild recurrent major depression: Code(s): F33.0 - Major depressive disorder, recurrent, mild Category: Medical (3) Hyperlipidemia: Code(s): E78.5 - Hyperlipidemia, unspecified Category: Medical (4) Obesity: Code(s): E66.9 - Obesity, unspecified Category: Medical Plan Repeat physical exam in a year. Continue same medications. Continue yearly mammograms. Cologuard ordered to screen for colon cancer. Referred to [facility] [facility] unit adjuster due to obesity and elevated cholesterol. Orders: Orders Lipid Panel Today E78.5 - Hyperlipidemia, unspecified Comprehensive [place]. Panel Fast Today I47.2 - Ventricular tachycardia Referrals Cologuard Test Z12.11 - Encounter for screening for malignant neoplasm of colon, Z12.12 - Encounter for screening for malignant neoplasm of rectum Nutrition/Dietitian Referral E66.9 - Obesity, unspecified, E78.5 - Hyperlipidemia, unspecified
== END 2025-07-23 10:39 | disposition home or self-care (01) ==
LOC: HO.HMCH 09:40
PROVIDERS: PCP Internal Medicine; Visit Provider Internal Medicine
DX: Z00.00 Encounter for general adult medical examination without abnormal findings (principal); F33.0 Major depressive disorder, recurrent, mild; E66.9 Obesity, unspecified; Z68.36 Body mass index [BMI] 36.0-36.9, adult; E78.5 Hyperlipidemia, unspecified; Z12.11 Encounter for screening for malignant neoplasm of colon

== ENCOUNTER → 2025-07-23 09:39 | Outpatient (BNVA) | payer OTHER, SELFPAY | PROVIDERS: PCP Internal Medicine; Visit Provider Internal Medicine | DX: Z00.00 Encounter for general adult medical examination without abnormal findings (principal); E78.00 Pure hypercholesterolemia, unspecified; F33.0 Major depressive disorder, recurrent, mild; E78.5 Hyperlipidemia, unspecified; E66.9 Obesity, unspecified; Z13.31 Encounter for screening for depression | CPT/HCPCS: 96127; 99396 ==